=== PATIENT | male | born 1990 | race Caucasian/White ===

== ENCOUNTER 2019-06-11 14:12 | Emergency (ER) | payer MEDICARE, MEDICAID, SELFPAY ==
[2019-06-11 14:45] VITALS: BP 137/60; PULSE 99; RESP 18; TEMP 36.6; O2SAT 96; BMI 30.5
--- NOTE | 2019-06-11 15:09 | DI.RAD.S_ITS ---
PROCEDURE: XR SOFT TISSUE NECK INDICATIONS: ? needle breakoff in neck TECHNIQUE: 2 views of the neck were acquired. COMPARISON: None. FINDINGS: Airway: The airway appears patent. Soft tissues: Prevertebral soft tissues are normal in thickness. The epiglottis and aryepiglottic folds appear normal. No soft tissue gas. 9 mm linear radiodensity is noted overlying the medial soft tissues of the right neck at approximately level of C5-6. Bones: No suspicious bony lesions. Visualized cervical spine is normally aligned. IMPRESSION: 9 mm radiodense area overlying the right neck as above. This appears consistent with foreign body and recommend clinical correlation. Dictated by: Thelma Canales M.D. on 06/11/2019 at 15:54 Approved by: Thelma Canales M.D. on 06/11/2019 at 15:55
--- NOTE | 2019-06-11 16:39 | DI.US.S_ITS ---
PROCEDURE: US SOFT TISSUE HEAD AND NECK INDICATIONS: NEEDLE RIGHT SIDE OF NECK TECHNIQUE: Real-time scanning was performed of the neck region of interest, with image documentation. COMPARISON: Located Within [facility], CR, XR SOFT TISSUE NECK, 06/11/2019, 15:30. FINDINGS: Ultrasound evaluation of the right neck in the area of incision demonstrates no discrete foreign body sonographically. IMPRESSION: 1. Previously visualized radiopaque foreign body in the right neck soft tissues not discretely visualize sonographically. Dictated by: Eric Llanos M.D. on 06/11/2019 at 17:24 Approved by: Eric Llanos M.D. on 06/11/2019 at 17:26
--- NOTE | 2019-06-11 18:38 | ED.SKABFB ---
HPI - Skin/Abscess/Foreign Bdy <NAHEED Wesley - Last Filed: 06/11/19 18:51> General Chief complaint: Skin/Abscess/Foreign Body Stated complaint: broke needle in jugular 2 weeks ago Time Seen by Provider: 06/11/19 16:26 Source: patient Mode of arrival: Ambulatory Limitations: no limitations History of Present Illness HPI narrative: The patient is a 28-year-old male with history of IV drug use who presents with a chief complaint of a broken needle near his right jugular 2 weeks ago. Denies any fevers nausea vomiting or diarrhea. He states he only came in today because of the urging of his counselor. Denies any fevers nausea vomiting or diarrhea. 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 He states he transiently uses Suboxone, which he sources from the street. Related Data Home Medications Medication Instructions Recorded Confirmed aripiprazole [Abilifmarguerite Maintena] 400 mg IM QMONTH 06/11/19 06/11/19 bupropion HCl 150 mg PO DAILY 06/11/19 buspirone 30 mg PO BID 06/11/19 prazosin 6 mg PO DAILY 06/11/19 Allergies Allergy/AdvReac Type Severity Reaction Status Date / Time No Known Drug Allergies Allergy Verified 06/11/19 14:45 Review of Systems <NAHEED Wesley - Last Filed: 06/11/19 18:51> Review of Systems Narrative: GENERAL: See HPI HEENT: Denies sinus pain, ear pain, sore throat, difficulty swallowing, dizziness. RESPIRATORY: Denies dyspnea, cough, wheezing, hemoptysis, sputum. CARDIOVASCULAR: Denies chest pain, palpitations, orthopnea, edema, GASTROINTESTINAL: Denies nausea, vomiting, abdominal pain, diarrhea, constipation, melena. : Denies dysuria, frequency, incontinence, hematuria, urinary retention. MUSCULOSKELETAL: denies weakness, joint pain, or bony pain SKIN: See HPI NEUROLOGIC: Denies weakness, headache, numbness, change in speech, confusion, seizures, incoordination. PSYCHIATRIC: No concerning psychosocial issues. 12 point review of systems is negative except for those stated above Patient History <NAHEED Wesley - Last Filed: 06/11/19 18:51> Medical History (Updated 06/11/19 @ 18:49 by NAHEED Wesley) Endocarditis (Acute) Social History Smoking Status: Current every day smoker Smoking Status: Current every day smoker Substance Use Type: heroin and methamphetamine Exam <NAHEED Wesley - Last Filed: 06/11/19 18:51> Narrative Exam Narrative: GENERAL: This is a well-nourished, well-developed patient, in no acute distress HEAD: Atraumatic. Normocephalic. No temporal or scalp tenderness. EYES: Pupils equal round and reactive. Extraocular motions intact. No scleral icterus. No injection or drainage. ENT: Nose without bleeding, purulent drainage or septal hematoma. Throat without erythema, tonsillar hypertrophy or exudate. Uvula midline. Airway patent. NECK: Trachea midline. No JVD or lymphadenopathy. Supple, nontender, no meningeal signs. CARDIOVASCULAR: Regular rate and rhythm RESPIRATORY: Clear to auscultation. Breath sounds equal bilaterally. No wheezes, rales, or rhonchi. No cough. No increased respiratory effort. No accessory muscle use. GASTROINTESTINAL: Abdomen soft, non-tender, nondistended. No hepato-splenomegaly, or palpable masses. No guarding. EXTREMITIES: No clubbing, cyanosis, or edema. No joint tenderness, effusion, or edema noted. BACK: Nontender without deformity or crepitance. No flank tenderness. NEURO: AOx3. SKIN: Multiple IV injection sites. Noted 1 on right side of neck, with no purulent discharge, no spreading erythema, no drainage. No palpable abscess. Initial Vital Signs Initial Vital Signs: Vital Signs Temperature 97.9 F 06/11/19 14:45 Pulse Rate 99 H 06/11/19 14:45 Respiratory Rate 18 06/11/19 14:45 Blood Pressure 137/60 06/11/19 14:45 Pulse Oximetry 96 06/11/19 14:45 <Shima Zaragoza DO - Last Filed: 06/11/19 20:01> Initial Vital Signs Initial Vital Signs: Vital Signs Temperature 97.9 F 06/11/19 14:45 Pulse Rate 99 H 06/11/19 14:45 Respiratory Rate 18 06/11/19 14:45 Blood Pressure 137/60 06/11/19 14:45 Pulse Oximetry 96 06/11/19 14:45 Course <JASON WesleyBENEDICT - Last Filed: 06/11/19 18:51> Orders Ordered: ED Orders 06/11/19 15:09 XR soft tissue neck Stat 06/11/19 16:39 US soft tissue head and neck Stat Consultations Consultation #1: I spoke with Dr. Boss from surgery, who recommends watchful waiting if the patient is afebrile, feels okay and has no signs of infection. This correlates with the patient at this point in time because he only came in at the urging of his counselor, not because he is feeling poorly. Time: 18:10 Vital Signs Vital signs: Vital Signs - 8 hr 06/11/19 14:45 06/11/19 18:52 Temperature 97.9 F Pulse Rate 99 H 97 H Respiratory Rate 18 18 Blood Pressure 137/60 132/73 Pulse Oximetry 96 100 <Shima Zaragoza DO - Last Filed: 06/11/19 20:01> Orders Ordered: ED Orders 06/11/19 15:09 XR soft tissue neck Stat 06/11/19 16:39 US soft tissue head and neck Stat Vital Signs Vital signs: Vital Signs - 8 hr 06/11/19 14:45 06/11/19 18:52 Temperature 97.9 F Pulse Rate 99 H 97 H Respiratory Rate 18 18 Blood Pressure 137/60 132/73 Pulse Oximetry 96 100 MDM - Skin/Abscess/Foreign Bdy <NAHEED Wesley - Last Filed: 06/11/19 18:51> [facility] Narrative Medical decision making narrative: The patient is a 28-year-old male who presents with a chief complaint of a possible heroin needle in his neck. Placement is confirmed by x-ray, unable to view on ultrasound. Spoke with Dr. Boss from surgery, who recommends watchful waiting of the patient's not hemodynamically ill. Discussed this with patient and he is okay with this plan at this point time. He has an appointment with PCP coming up next week. He is okay with plan of care, has no questions or concerns upon discharge states understanding return precautions as well as follow-up care. <Shima Zaragoza DO - Last Filed: 06/11/19 20:01> [facility] Narrative Medical decision making narrative: Case discussed along with review of imaging and surgery consulted. Needle does not appear to be in the vasculature. Plan for watchful waiting and patient to return if needed. Discharge Plan Departure Patient Disposition: Home Clinical Impression: Foreign body in soft tissue Discharge Date/Time: 06/11/19 18:53 Instructions: DI for Drug Abuse and Drug Addiction Activity Restrictions/Additional Instructions: Please follow-up with primary care provider as scheduled. Please monitor for signs of infection such as fever, purulence drainage etcetera. Please be evaluated if these occur. Please come back to the emergency department for any acute concerns. I am proud of you for working to stop using IV drugs Prescriptions: No Action buspirone 30 mg tablet 30 mg PO BID RF: 0 prazosin 2 mg capsule 6 mg PO DAILY RF: 0 bupropion HCl 150 mg tablet extended release 24 hr 150 mg PO DAILY RF: 0 Abilify Maintena 400 mg suspension,extended rel syring 400 mg IM QMONTH RF: 0
[2019-06-11 18:52] VITALS: BP 132/73; PULSE 97; RESP 18; O2SAT 100
== END 2019-06-11 18:53 | disposition home or self-care (01) ==
PROVIDERS: Emergency Provider Nurse Practitioner Family
DX: M79.5 Residual foreign body in soft tissue (principal)
CPT/HCPCS: 70360; 76536; 99281; 99284

== ENCOUNTER → 2021-12-25 08:27 | Outpatient (CLI) | payer MEDICARE, MEDICAID, SELFPAY ==
--- NOTE | 2021-12-25 | DI.US.S_ITS ---
PROCEDURE: US ABDOMEN COMPLETE INDICATIONS: Hepatic fibrosis, advanced fibrosis TECHNIQUE: Real-time scanning was performed of the abdominal and retroperitoneal organs, with image documentation. Doppler interrogation of the hepatic vessels was performed. COMPARISON: None. FINDINGS: Liver: Liver is normal in size and homogeneous in echotexture. Mildly lobulated liver contour. Doppler interrogation of the hepatic vasculature to include the splenic vein, portal veins hepatic veins and hepatic artery was performed. Normal waveforms identified. Gallbladder: Gallbladder is normal in sonographic appearance without gallstones, gallbladder wall thickening, pericholecystic fluid, or abnormal sonographic Chen's. Biliary ducts: Intrahepatic bile ducts are non-dilated. Extrahepatic bile duct caliber measures 6 mm. Normal is 6-7 mm or less in diameter, or 10 mm or less post-cholecystectomy. Possible choledochal cyst noted. Pancreas: Visualized portions of the pancreas are sonographically normal. Spleen: Splenomegaly with spleen measuring 17 cm in length. Kidneys: Kidneys are normal in size and echotexture. Right kidney measures 11 cm long; left kidney measures 10 cm long. No hydronephrosis or nephrolithiasis. No solid masses. Aorta: Visualized aorta is normal in caliber at less than 3 cm. Iliacs: Proximal common iliac arteries are normal in caliber at less than 2.5 cm. IVC: Intrahepatic inferior vena cava is patent. Miscellaneous: No free abdominal fluid. IMPRESSION: 1. Unremarkable sonographic evaluation of the abdomen with normal Doppler evaluation of the hepatic/portal vasculature. 2. Possible choledochal cyst. Consider further evaluation with MRCP. Dictated by: Wenceslao Guo M.D. on 12/25/2021 at 10:08 Approved by: Wenceslao Guo M.D. on 12/25/2021 at 10:15
== END ==
PROVIDERS: Referring Provider Physician Assistant; Visit Provider Physician Assistant
DX: K74.02 Hepatic fibrosis, advanced fibrosis (principal)
CPT/HCPCS: 76700; 93975

== ENCOUNTER → 2022-01-22 11:26 | Outpatient (CLI) | payer MEDICARE, MEDICAID, SELFPAY ==
--- NOTE | 2022-01-22 | DI.CT.S_ITS ---
PROCEDURE: CT ABDOMEN LIVER PROTOCOL INDICATIONS: Hepatic fibrosis, advanced fibrosis TECHNIQUE: 4 phase scanning was performed. Non-contrast 5 mm axial sections acquired from the diaphragm to the iliac crests. Following the administration of intravenous contrast, 5 mm thick arterial-phase, portal venous-phase, and 5-minute delayed phase images were acquired through the liver. 5 mm thick coronal and sagittal reformats were performed. For radiation dose reduction, the following was used: automated exposure control, adjustment of mA and/or kV according to patient size. COMPARISON: [facility], , US ABDOMEN COMPLETE, 12/25/2021, 8:35. FINDINGS: Image quality: Excellent. Lung bases: No pleural effusion. Bibasilar atelectasis. Heart size is normal. Liver: Cirrhotic liver morphology. No arterial hyperenhancing observation. No washout. Tiny calcification adjacent to the inferior right margin of the liver. Other solid organs: Gallbladder is within normal limits. No gallstones identified. Biliary system is non dilated. No choledochal cyst demonstrated. Pancreas is normal in morphology. Spleen is mildly enlarged measuring 16 cm. No adrenal nodules. Both kidneys demonstrate normal size and enhancement, without hydronephrosis or nephrolithiasis. Nodes and vessels: No retroperitoneal or mesenteric adenopathy by size criteria. Aorta and inferior vena cava are normal in size. Conventional and patent hepatic arterial anatomy. No filling defect in the portal vein. Recannulization of the periumbilical vein. Para soft RENUKA where sees. Upper abdominal varices. Splenic vein is enlarged. Bowel and peritoneum: Unenhanced bowel loops are normal in caliber. No free fluid or air. Bones: No suspicious bony lesions. No vertebral body compression fractures. Miscellaneous: No ventral hernias. IMPRESSION: 1. Cirrhotic liver morphology. Splenomegaly. Upper abdominal varices. No ascites. 2. No LR 4 or LR 5 observations to suggest HCC. Dictated by: Elías Kathleen M.D. on 01/22/2022 at 13:47 Approved by: Elías Kathleen M.D. on 01/22/2022 at 13:55
== END ==
PROVIDERS: PCP Physician Assistant; Referring Provider Physician Assistant; Visit Provider Physician Assistant
DX: K74.02 Hepatic fibrosis, advanced fibrosis (principal); R77.2 Abnormality of alphafetoprotein; R16.1 Splenomegaly, not elsewhere classified; I86.8 Varicose veins of other specified sites
CPT/HCPCS: 74170; Q9967

== ENCOUNTER 2023-01-22 13:07 | Emergency (ER) | payer MEDICARE, MEDICAID, SELFPAY ==
[2023-01-22] VITALS (17 sets, daily range): BP systolic 135–162; BP diastolic 62–80; PULSE 88–93; RESP 17–38; TEMP 36.5; O2SAT 89–99; BMI 30.8
--- NOTE | 2023-01-22 | DI.RAD.S_ITS ---
PROCEDURE: XR PELVIS 1-2V INDICATIONS: TRAUMA TECHNIQUE: 1 view(s) of the pelvis acquired. COMPARISON: None. FINDINGS: Bones: No fractures or dislocations. No suspicious bony lesions. Soft tissues: Visualized bowel gas pattern is normal. No suspicious soft tissue calcifications. IMPRESSION: No displaced fracture can be seen on this single view plain film. Dictated by: Kieran Garnett M.D. on 01/22/2023 at 12:30 Approved by: Kieran Garnett M.D. on 01/22/2023 at 12:31
--- NOTE | 2023-01-22 | DI.RAD.S_ITS ---
PROCEDURE: XR CHEST 1V INDICATIONS: TRAUMA TECHNIQUE: One view of the chest was acquired. COMPARISON: [facility], CR, XR CHEST 1VW (PORTABLE), 04/05/2015, 20:39. [facility], CR, XR PELVIS 1-2V, 01/22/2023, 13:11. FINDINGS: Surgical changes and devices: None. Lungs and pleura: On this supine examination, no large pneumothorax or large pleural effusions are seen. No focal areas of lung consolidation are seen. Low lung volumes are noted. This causes a crowded appearance to the lung markings and limits evaluation. Mediastinum: Mediastinal contours appear normal. Heart size is normal. Bones and chest wall: No suspicious bony lesions. Soft tissue gas can be seen on the right. IMPRESSION: Soft tissue gas seen on the right. No definite associated rib fractures are seen. No pneumothorax is identified on this supine study. Low lung volumes. Dictated by: Kieran Garnett M.D. on 01/22/2023 at 12:36 Approved by: Kieran Garnett M.D. on 01/22/2023 at 12:38
--- NOTE | 2023-01-22 13:13 | DI.CT.S_ITS ---
PROCEDURE: CT CHEST ABD PEL WO CON INDICATIONS: trauma TECHNIQUE: After the administration of oral contrast, 5 mm thick sections acquired from the lung apices to the symphysis pubis. 5 mm thick coronal and sagittal reformats acquired, with additional 7 mm coronal MIP reformats through the lungs. For radiation dose reduction, the following was used: automated exposure control, adjustment of mA and/or kV according to patient size. There is an attempt to give IV contrast. However, the IV malfunction. COMPARISON: [facility], CT, CT ABDOMEN LIVER PROTOCOL, 01/22/2022, 12:05. [facility], CT, CT HEAD/BRAIN WO CON, 01/22/2023, 13:22. [facility], CT, CT CERVICAL SPINE WO CON, 01/22/2023, 13:22. [facility], CR, XR PELVIS 1-2V, 01/22/2023, 13:11. [facility], CR, XR CHEST 1V, 01/22/2023, 13:11. FINDINGS: Image quality: Limited by lack of IV contrast. There is streak artifact seen through the upper abdomen. CHEST: Lungs and pleura: There is a trace right apical pneumothorax. There is presumed dependent atelectasis. Central and peripheral airways are patent are normal in caliber. Mediastinum: Heart size is normal. No pericardial effusion. No mediastinal adenopathy by CT size criteria. Thoracic aorta and central pulmonary arteries are normal in size. Esophagus is normal in caliber. No hiatal hernia. Chest wall: There is a mildly displaced right anterior 1st rib fracture, with mildly displaced fractures involving the right 2nd through 7th ribs. A moderate amount of right-sided soft tissue gas is seen. There is a comminuted, moderately displaced right lateral clavicle fracture. No scapular fracture is seen. No axillary or supraclavicular adenopathy by size criteria. Thyroid gland demonstrates no significant noncontrast abnormality. ABDOMEN: Solid organs: Liver is normal in size. The liver demonstrates a nodular contour. Gallbladder wall is not thickened. Pancreas is normal in contours. The spleen is enlarged measuring 18.2 cm craniocaudal No adrenal nodules. Both kidneys are normal in size, without hydronephrosis or nephrolithiasis. There is a small amount of hyperdense material seen within the renal collecting systems, which is likely related to a small amount of injected contrast, with excretion. Peritoneum and bowel: Small and large bowel loops are normal in caliber and wall thickness. No free fluid or air. A normal appendix is noted. Note is made of hyperdense material within the appendix is self. Nodes and vessels: No retroperitoneal or mesenteric adenopathy by size criteria. Aorta and inferior vena cava are normal in size. Miscellaneous: No ventral hernias. PELVIS: Genitourinary: Bladder wall thickness is normal. Miscellaneous: No inguinal hernias or adenopathy. Bones: No suspicious bony lesions. No vertebral body compression fractures. Focal L5-S1 degenerative change. IMPRESSION: 1st through 7th right-sided rib fractures, with associated soft tissue gas and a trace right apical pneumothorax. There is a comminuted, moderately displaced fracture of the right lateral clavicle. No scapular fracture is seen. No pelvis fracture. No displaced vertebral fracture. Additional findings: Cirrhotic liver, with splenomegaly, as previously demonstrated. Focal premature L5-S1 degenerative change Note: Case discussed by telephone with Dr. Dickson at 1:01 p.m. [place] time on January 22, 2023. Dictated by: Kieran Garnett M.D. on 01/22/2023 at 13:04 Approved by: Kieran Garnett M.D. on 01/22/2023 at 13:08
--- NOTE | 2023-01-22 13:16 | DI.CT.S_ITS ---
PROCEDURE: CT HEAD/BRAIN WO CON INDICATIONS: trauma TECHNIQUE: Noncontrast 4.5 mm thick angled axial sections acquired from the foramen magnum to the vertex, with coronal and sagittal reformats. For radiation dose reduction, the following was used: automated exposure control, adjustment of mA and/or kV according to patient size. COMPARISON: [facility], CT, CT BRAIN WO CON, 04/05/2015, 21:12. [facility], CT, CT CHEST ABD PEL WO CON, 01/22/2023, 13:34. [facility], CT, CT CERVICAL SPINE WO CON, 01/22/2023, 13:22. [facility], CR, XR PELVIS 1-2V, 01/22/2023, 13:11. [facility], CR, XR CHEST 1V, 01/22/2023, 13:11. [facility], CT, HEAD WITHOUT CONTRAST, 06/15/2015, 11:19. FINDINGS: Image quality: This examination is limited by involuntary motion artifact. Mild streak artifact can be seen through the skull base. CSF spaces: Basal cisterns are patent. No extra-axial fluid collections. Ventricles are normal in size and shape. Brain: No midline shift. No intracranial masses or hemorrhage. Park-white matter interface is normal. Stable encephalomalacia can be seen involving the left parietal lobe. Skull and face: There is a dick hole seen on the left posteriorly, as before. Calvarium and visualized facial bones are intact, without suspicious lesions. Sinuses: Visualized sinuses and mastoids are clear. IMPRESSION: No acute intracranial hemorrhage is seen. No acute intracranial process is seen. Left parietal encephalomalacia, with an overlying calvarial dick hole. Dictated by: Kieran Garnett M.D. on 01/22/2023 at 12:53 Approved by: Kieran Garnett M.D. on 01/22/2023 at 12:55
--- NOTE | 2023-01-22 13:16 | DI.CT.S_ITS ---
PROCEDURE: CT CERVICAL SPINE WO CON INDICATIONS: trauma TECHNIQUE: Noncontrast 3 mm thick sections acquired from the skull base to the T4 level. Sagittal and coronal reformats were then constructed. For radiation dose reduction, the following was used: automated exposure control, adjustment of mA and/or kV according to patient size. COMPARISON: [facility], CT, CT CHEST ABD PEL WO CON, 01/22/2023, 13:34. [facility], CT, CT HEAD/BRAIN WO CON, 01/22/2023, 13:22. FINDINGS: Image quality: This examination is limited by involuntary motion artifact. This examination is somewhat limited by quantum mottle artifact. Bones: No fractures or dislocations are seen of the cervical spine. There is a mildly displaced fracture seen involving the anterior right 1st rib. Soft tissues: Prevertebral soft tissues are normal in thickness. No paravertebral hematomas. Right-sided thoracic gas is partially seen. There is a trace right apical pneumothorax. IMPRESSION: No cervical spine fracture is seen. Right anterior 1st rib fracture seen, with associated soft tissue gas and a trace right apical pneumothorax. Note: Case discussed by telephone with Dr. Dickson at 1:01 p.m. [place] time on January 22, 2023. Dictated by: Kieran Garnett M.D. on 01/22/2023 at 12:56 Approved by: Kieran Garnett M.D. on 01/22/2023 at 13:03
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
[2023-01-22] MEDS: HYDROMORPHONE 0.5 MG INJ IV ×3 (13:21→14:58)
[2023-01-22 13:36] LABS: Add Manual Diff / Slide Review NO; Basophils Absolute Auto 0 /uL (0-100); Eosinophils Absolute Auto 0 /uL (0-450); Eosinophils Percent Auto 0.1 % (2-4); Hematocrit 37.7 % (41-53); Hemoglobin 12.9 g/dL (13.5-17.5); Lymphocytes Absolute Auto 700 /uL (1100-4500); Lymphocytes Percent Auto 23.3 % (25-40); Mean Corpuscular HGB Conc 34.1 % (30-36); Mean Corpuscular Hemoglobin 32.4 PG (26-34); Mean Corpuscular Volume 94.9 fL (80-100); Monocytes Absolute Auto 300 /uL (0-900); Monocytes Percent Auto 11.9 % (3-14); Neutrophils Absolute Auto 1800 /uL (1500-7000); Neutrophils Percent Auto 63.7 % (50-75); Platelet Count 40 X10^3/uL (150-400); Red Blood Cell Count 3.97 X10^6/uL (4.5-5.9); Red Cell Distribution Width 14.2 % (11.6-14.8); White Blood Cell Count 2.8 X10^3/uL (4.5-11.0)
[2023-01-22 13:46] LABS: Alanine Aminotransferase 27 IU/L (<50); Albumin 3.7 g/dL (3.5-5.0); Alkaline Phosphatase 106 U/L (38-126); Aspartate Aminotransferase 46 IU/L (17-59); BUN Creatinine Ratio 17.5 (6-22); Bilirubin Total 1.3 mg/dL (0.2-1.3); Blood Urea Nitrogen 10 mg/dL (9-20); Calcium 9.1 mg/dL (8.4-10.2); Carbon Dioxide 27 mmol/L (22-32); Chloride 106 mmol/L (98-107); Estimated Glomerular Filt Rate > 60 mL/min (>60); Ethanol (ETOH) < 10 mg/dL; Globulin 3.7 g/dL (1.7-4.1); Glucose 141 mg/dL (70-100); HEMOLYSIS < 15 (0-50); Lipase 66 U/L (23-300); Potassium 4.1 mmol/L (3.4-5.1); Sodium 138 mmol/L (137-145); Total Protein 7.4 g/dL (6.3-8.2)
[2023-01-22 13:58] LABS: Troponin I < 0.012 ng/mL (0.01-0.034)
[2023-01-22] MEDS: HYDROMORPHONE 1 MG INJ IV (14:34)
[2023-01-22 14:48] LABS: COVID19 -Nasal RAPID Negative (Negative)
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
--- NOTE | 2023-01-22 15:12 | PC.NURSE ---
Patient's belongings bagged up including but not limited to, helmet, shoes, cut jacket, spare change, and yellow colored band removed to right hand upon arrival and placed in cup with patient label. Band in cup given to flight crew directly and placed in belongings bag.
== END 2023-01-22 15:05 | disposition short-term general hospital (02) ==
PROVIDERS: Emergency Provider Emergency Medicine; PCP Physician Assistant
DX: S42.031A Displaced fracture of lateral end of right clavicle, initial encounter for closed fracture (principal); S22.41XA Multiple fractures of ribs, right side, initial encounter for closed fracture; J93.9 Pneumothorax, unspecified; S30.1XXA Contusion of abdominal wall, initial encounter; V29.99XA Rider (driver) (passenger) of other motorcycle injured in unspecified traffic accident, initial encounter; Z20.822 Contact with and (suspected) exposure to COVID-19
CPT/HCPCS: 36415; 70450; 71045; 71250; 72125; 72170; 74176; 80053; 80320; 83690; 84484; 85025; 86850; 86900; 86901; 87635; 96374; 96376; 99285; 99291; 99292; C9803; G0390; J1170

== ENCOUNTER 2023-04-26 14:21 | Emergency (ER) | payer MEDICARE, MEDICAID, SELFPAY ==
[2023-04-26 14:24] VITALS: BP 147/78; PULSE 107; RESP 18; TEMP 36.8; O2SAT 98; BMI 31.9
[2023-04-26 15:21] VITALS: BP 119/56; PULSE 101; RESP 18; TEMP 36.8; O2SAT 95
[2023-04-26 16:13] VITALS: BP 116/57; PULSE 94; RESP 16; TEMP 36.9; O2SAT 95
[2023-04-26 18:14] LABS: Add Manual Diff / Slide Review NO; Basophils Absolute Auto 0 /uL (0-100); Basophils Percent Auto 1.4 % (0-2); Eosinophils Absolute Auto 0 /uL (0-450); Eosinophils Percent Auto 0.1 % (2-4); Hematocrit 26.9 % (41-53); Lymphocytes Absolute Auto 500 /uL (1100-4500); Lymphocytes Percent Auto 19.3 % (25-40); Mean Corpuscular HGB Conc 33.5 % (30-36); Mean Corpuscular Hemoglobin 29.4 PG (26-34); Mean Corpuscular Volume 87.8 fL (80-100); Monocytes Absolute Auto 400 /uL (0-900); Monocytes Percent Auto 16.1 % (3-14); Neutrophils Absolute Auto 1600 /uL (1500-7000); Neutrophils Percent Auto 63.1 % (50-75); Platelet Count 50 X10^3/uL (150-400); Red Blood Cell Count 3.06 X10^6/uL (4.5-5.9); Red Cell Distribution Width 15.4 % (11.6-14.8); White Blood Cell Count 2.5 X10^3/uL (4.5-11.0)
[2023-04-26 18:31] LABS: Lactate (Lactic Acid) 0.9 mmol/L (0.7-2.1)
[2023-04-26] MEDS: cefTRIAXone 1,000 MG in SODIUM CHLORIDE 0.9% 100 ML 200 MG IV (18:31)
[2023-04-26 18:33] LABS: Alanine Aminotransferase 25 IU/L (<50); Albumin 3.2 g/dL (3.5-5.0); Albumin Globulin Ratio 0.9 (1.0-2.8); Alkaline Phosphatase 147 U/L (38-126); Aspartate Aminotransferase 39 IU/L (17-59); BUN Creatinine Ratio 23.2 (6-22); Bilirubin Total 0.9 mg/dL (0.2-1.3); Blood Urea Nitrogen 13 mg/dL (9-20); Calcium 8.3 mg/dL (8.4-10.2); Carbon Dioxide 27 mmol/L (22-32); Chloride 103 mmol/L (98-107); Estimated Glomerular Filt Rate > 60 mL/min (>60); Globulin 3.7 g/dL (1.7-4.1); Glucose 102 mg/dL (70-100); HEMOLYSIS < 15 (0-50); Potassium 4.2 mmol/L (3.4-5.1); Sodium 134 mmol/L (137-145); Total Protein 6.9 g/dL (6.3-8.2)
--- NOTE | 2023-04-26 18:47 | DI.CT.S_ITS ---
PROCEDURE: CT LE LT W CON INDICATIONS: LLE cellulitis TECHNIQUE: After the administration of intravenous contrast, 3 mm axial sections acquired of the left , with coronal and sagittal reformats. COMPARISON: None. FINDINGS: Image quality: Excellent. Bones: Unremarkable. Soft tissues: Subcutaneous stranding and skin thickening is seen throughout the left lower extremity. No deep intermuscular edema. No subcutaneous emphysema. IMPRESSION: 1. Diffuse subcutaneous edema and skin thickening. No deep intramuscular edema. Findings are consistent with history of cellulitis. 2. The osseous structures are unremarkable. 3. Few prominent left inguinal and left pelvic lymph nodes, may be reactive. 4. Exam is described as with contrast, there does not appear to be contrast within vasculature. Recommend correlation with extravasation. Dictated by: Stuart Barraza M.D. on 04/26/2023 at 19:36 Approved by: Stuart Barraza M.D. on 04/26/2023 at 19:39
--- NOTE | 2023-04-26 18:50 | ED_ITS ---
HPI - Skin/Abscess/Foreign Bdy <Keith Crain PA-C - Last Filed: 04/26/23 19:33> General Chief complaint: Skin/Abscess/Foreign Body Stated complaint: cellulitis left leg Time Seen by Provider: 04/26/23 16:02 Source: patient Mode of arrival: Ambulatory Limitations: no limitations History of Present Illness HPI narrative: 32-year-old male, past IV drug user, current substance abuse including fentanyl and meth, endocarditis presents to the ED with 1 week of worsening left leg erythema, swelling, pain. Patient states that he took 3-4 days of Keflex with no improvement. Patient states that his infection is worsening. Patient denies numbness, tingling, weakness. Patient is able to bear weight and walk. Patient denies fever, chills, nausea, vomiting. Patient states that he has not used needles for IV drug use for 2 years. Confirms that there is no risk of a broken needle tip in the leg that could be causing his symptoms. Patient thinks that it is a wound that he has on his upper leg that might be the source of his infection. Last use of methamphetamine and fentanyl today. Related Data Home Medications Medication Instructions Recorded Confirmed aripiprazole 400 mg suspension, 400 mg IM QMONTH 06/11/19 06/11/19 extended rel.intramuscular syringe (Jeniffer Cisneros) bupropion HCl 150 mg 24 hr tablet, 150 mg PO DAILY 06/11/19 extended release buspirone 30 mg tablet 30 mg PO BID 06/11/19 prazosin 2 mg capsule 6 mg PO DAILY 06/11/19 Allergies Allergy/AdvReac Type Severity Reaction Status Date / Time No Known Drug Allergies Allergy Verified 01/22/22 11:45 Review of Systems <Keith Crain PA-C - Last Filed: 04/26/23 19:33> Constitutional Constitutional: Denies chills, Denies fatigue, Denies fever(s), Denies frequent falls, Denies lethargy and Denies weakness Eyes Eyes: Denies change in vision, Denies eye discharge, Denies irritation and Denies loss of vision ENT Ears, Nose, Mouth, and Throat: Denies change in voice, Denies dizziness, Denies neck pain, Denies sore throat and Denies throat swelling Cardiovascular Cardiovascular: Denies chest pain, Denies irregular heart rhythm, Denies lightheadedness, Denies palpitations, Denies dyspnea, Denies dyspnea on exertion and Denies orthopnea Respiratory Respiratory: Denies cough, Denies dyspnea, Denies dyspnea on exertion and Denies wheezing Gastrointestinal Gastrointestinal: Denies abdominal pain, Denies change in bowel habits, Denies diarrhea, Denies nausea and Denies vomiting Musculoskeletal Musculoskeletal: Denies neck pain and Denies numbness Integumentary/Breasts Skin/Breast: Denies pruritus, Denies erythema, Denies rash and Denies wounds Comments: Left leg erythema, swelling extending up into the groin Neurologic Neurologic: Denies behavioral changes, Denies confusion, Denies dizziness, Denies frequent falls, Denies loss of vision, Denies numbness and Denies weakness Psychiatric Psychiatric: Denies anxiety, Denies behavioral changes, Denies confusion, Denies depression, Denies homicidal ideation and Denies suicidal ideation Endocrine Endocrine: Denies fatigue, Denies flushing and Denies palpitations Hematologic/Lymphatic Hematologic/Lymphatic: Denies easy bruising Allergic/Immunologic Allergic/Immunologic: Denies urticaria, Denies throat swelling and Denies wheezing Patient History <Keith Crain PA-C - Last Filed: 04/26/23 19:33> Medical History Endocarditis Social History Smoking Status: Current every day smoker Smoking Status: Current every day smoker tobacco type: cigarettes and vaping Substance Use Type: heroin, opiates and methamphetamine Exam <Keith Crain PA-C - Last Filed: 04/26/23 19:33> Narrative Exam Narrative: Const General:?cooperative, healthy appearing and comfortable [facility] Head:?normal to inspection Ears:?hearing grossly normal bilaterally Nose:?external nose normal Face and sinus:?normal facial exam and sinuses nontender Mouth:?oral mucosae normal Throat:?posterior oropharynx normal Eyes General:?appearance normal, both eyes and all related structures Neck Neck:?normal visual inspection and no lymphadenopathy noted Resp Effort & Inspection:?normal respiratory effort Auscultation:?clear to auscultation bilaterally Cardio Rate:?regular rate Rhythm:?regular rhythm Integumentary There is marked swelling, erythema extending from the tips of the toes of the left leg up into the groin and genital area. No purulence. Pulses intact. Compartments are soft. Strength and sensation intact. Patient is able to bear weight and walk. Neuro General:?patient alert, patient awake and patient oriented x3 Initial Vital Signs Initial Vital Signs: Vital Signs Temperature 98.3 F 04/26/23 14:24 Pulse Rate 107 H 04/26/23 14:24 Respiratory Rate 18 04/26/23 14:24 Blood Pressure 147/78 H 04/26/23 14:24 Pulse Oximetry 98 04/26/23 14:24 Oxygen Delivery Method Room Air 04/26/23 14:24 <Minh Tejeda DO - Last Filed: 04/26/23 19:59> Initial Vital Signs Initial Vital Signs: Vital Signs Temperature 98.3 F 04/26/23 14:24 Pulse Rate 107 H 04/26/23 14:24 Respiratory Rate 18 04/26/23 14:24 Blood Pressure 147/78 H 04/26/23 14:24 Pulse Oximetry 98 04/26/23 14:24 Oxygen Delivery Method Room Air 04/26/23 14:24 Course <Keith Crain PA-C - Last Filed: 04/26/23 19:33> Orders Ordered: ED Orders 04/26/23 17:32 CRP [C-Reactive Protein Quant] Stat ESR [Erythrocyte Sedimentation Rate] Stat 04/26/23 17:58 Blood Culture Stat CBC Auto Diff [Complete Blood Count AUTO DIFF] Stat CMP [Comprehensive Metabolic Panel] Stat Lactate (Lactic Acid) Stat 04/26/23 18:47 CT LE LT w con Stat Discontinued Medications Ceftriaxone Sodium 1,000 mg/ (Sodium Chloride) 100 mls @ 200 mls/hr IV NOW ONE Stop: 04/26/23 17:33 Last Infusion: 04/26/23 19:15 Dose: Infused Documented By: Admin: 04/26/23 18:31 Dose: 200 mls/hr Documented By: JABARI Vancomycin HCl/Dextrose (Vancomycin) 1,500 mg in 300 mls @ 200 mls/hr IV NOW ONE Stop: 04/26/23 20:23 Vital Signs Vital signs: Vital Signs - 8 hr 04/26/23 14:24 04/26/23 15:21 04/26/23 16:13 Temperature 98.3 F 98.3 F 98.5 F Pulse Rate 107 H 101 H 94 H Respiratory Rate 18 18 16 Blood Pressure 147/78 H 119/56 L 116/57 L Pulse Oximetry 98 95 95 Oxygen Delivery Method Room Air Room Air Room Air <Minh Tejeda DO - Last Filed: 04/26/23 19:59> Orders Ordered: ED Orders 04/26/23 17:32 CRP [C-Reactive Protein Quant] Stat ESR [Erythrocyte Sedimentation Rate] Stat 04/26/23 17:58 Blood Culture Stat CBC Auto Diff [Complete Blood Count AUTO DIFF] Stat CMP [Comprehensive Metabolic Panel] Stat Lactate (Lactic Acid) Stat 04/26/23 18:47 CT LE LT w con Stat Discontinued Medications Ceftriaxone Sodium 1,000 mg/ (Sodium Chloride) 100 mls @ 200 mls/hr IV NOW ONE Stop: 04/26/23 17:33 Last Infusion: 04/26/23 19:15 Dose: Infused Documented By: Admin: 04/26/23 18:31 Dose: 200 mls/hr Documented By: JABARI Vancomycin HCl/Dextrose (Vancomycin) 1,500 mg in 300 mls @ 200 mls/hr IV NOW ONE Stop: 04/26/23 20:23 Vital Signs Vital signs: Vital Signs - 8 hr 04/26/23 14:24 04/26/23 15:21 04/26/23 16:13 Temperature 98.3 F 98.3 F 98.5 F Pulse Rate 107 H 101 H 94 H Respiratory Rate 18 18 16 Blood Pressure 147/78 H 119/56 L 116/57 L Pulse Oximetry 98 95 95 Oxygen Delivery Method Room Air Room Air Room Air MDM - Skin/Abscess/Foreign Bdy <Keith Crain PA-C - Last Filed: 04/26/23 19:33> Lab Data 04/26/23 17:58 04/26/23 17:58 Labs: Lab Results 04/26/23 04/26/23 Range/Units 17:32 17:58 WBC 2.5 L (4.5-11.0) X10^3/uL RBC 3.06 L (4.5-5.9) X10^6/uL Hgb 9.0 L (13.5-17.5) g/dL Hct 26.9 L (41-53) % MCV 87.8 (80-100) fL MCH 29.4 (26-34) PG MCHC 33.5 (30-36) % RDW 15.4 H (11.6-14.8) % Plt Count 50 L (150-400) X10^3/uL Neut % (Auto) 63.1 (50-75) % Lymph % (Auto) 19.3 L (25-40) % [place] % (Auto) 16.1 H (3-14) % Eos % (Auto) 0.1 L (2-4) % Baso % (Auto) 1.4 (0-2) % Neut # (Auto) 1600 (8472-8007) /uL Lymph # (Auto) 500 L (1722-5485) /uL [place] # (Auto) 400 (0-900) /uL Eos # (Auto) 0 (0-450) /uL Baso # (Auto) 0 (0-100) /uL ESR 67 H (0-15) MM/HR Sodium 134 L (137-145) mmol/L Potassium 4.2 (3.4-5.1) mmol/L Chloride 103 (98-107) mmol/L Carbon Dioxide 27 (22-32) mmol/L BUN 13 (9-20) mg/dL Creatinine 0.56 L (0.66-1.25) mg/dL Estimated GFR > 60 (>60) mL/min BUN/Creatinine Ratio 23.2 H (6-22) Glucose 102 H (70-100) mg/dL Lactate 0.9 (0.7-2.1) mmol/L Calcium 8.3 L (8.4-10.2) mg/dL Total Bilirubin 0.9 (0.2-1.3) mg/dL AST 39 (17-59) IU/L ALT 25 (<50) IU/L Alkaline Phosphatase 147 H (38-126) U/L C-Reactive Protein 6.1 H (<1.0) mg/dL Total Protein 6.9 (6.3-8.2) g/dL Albumin 3.2 L (3.5-5.0) g/dL Globulin 3.7 (1.7-4.1) g/dL Albumin/Globulin Ratio 0.9 L (1.0-2.8) MDM Narrative Medical decision making narrative: 32-year-old male, past IV drug user, current substance abuse including fentanyl and meth, endocarditis presents to the ED with 1 week of worsening left leg erythema, swelling, pain. Concern for cellulitis versus sepsis versus other. Labs were obtained. White count 2.5, which is patient's baseline. Hemoglobin low at 9.0. Labs otherwise within normal limits. Patient was started on IV ceftriaxone, vancomycin. ESR and CRP ordered. CT left lower extremity ordered for further characterization. Consulted hospitalist Dr. Jacobs for admission for IV antibiotics. Dr. Jacobs graciously admits patient. ESR elevated to 67. CRP elevated to 6.1. CT results still pending. Patient at this time expresses his intention to leave Against Medical Advice so he can go home and take care of his dog. Patient states that he has no one else that can help him out. Discussed in detail with the patient the consequences of leaving Against Medical Advice without IV antibiotics, including sepsis and . Patient verbalized understanding. Patient agrees to come back to the ED once he has his dog handed off to his father. Medical records reviewed: Yes <Minh Tejeda, - Last Filed: 04/26/23 19:59> Lab Data Labs: Lab Results 04/26/23 04/26/23 Range/Units 17:32 17:58 WBC 2.5 L (4.5-11.0) X10^3/uL RBC 3.06 L (4.5-5.9) X10^6/uL Hgb 9.0 L (13.5-17.5) g/dL Hct 26.9 L (41-53) % MCV 87.8 (80-100) fL MCH 29.4 (26-34) PG MCHC 33.5 (30-36) % RDW 15.4 H (11.6-14.8) % Plt Count 50 L (150-400) X10^3/uL Neut % (Auto) 63.1 (50-75) % Lymph % (Auto) 19.3 L (25-40) % [place] % (Auto) 16.1 H (3-14) % Eos % (Auto) 0.1 L (2-4) % Baso % (Auto) 1.4 (0-2) % Neut # (Auto) 1600 (3802-3134) /uL Lymph # (Auto) 500 L (1533-5449) /uL [place] # (Auto) 400 (0-900) /uL Eos # (Auto) 0 (0-450) /uL Baso # (Auto) 0 (0-100) /uL ESR 67 H (0-15) MM/HR Sodium 134 L (137-145) mmol/L Potassium 4.2 (3.4-5.1) mmol/L Chloride 103 (98-107) mmol/L Carbon Dioxide 27 (22-32) mmol/L BUN 13 (9-20) mg/dL Creatinine 0.56 L (0.66-1.25) mg/dL Estimated GFR > 60 (>60) mL/min BUN/Creatinine Ratio 23.2 H (6-22) Glucose 102 H (70-100) mg/dL Lactate 0.9 (0.7-2.1) mmol/L Calcium 8.3 L (8.4-10.2) mg/dL Total Bilirubin 0.9 (0.2-1.3) mg/dL AST 39 (17-59) IU/L ALT 25 (<50) IU/L Alkaline Phosphatase 147 H (38-126) U/L C-Reactive Protein 6.1 H (<1.0) mg/dL Total Protein 6.9 (6.3-8.2) g/dL Albumin 3.2 L (3.5-5.0) g/dL Globulin 3.7 (1.7-4.1) g/dL Albumin/Globulin Ratio 0.9 L (1.0-2.8) Discharge Plan Departure Patient Disposition: Left Against Medical Advice Clinical Impression: Cellulitis Qualifiers: Site of cellulitis: extremity Site of cellulitis of extremity: lower extremity Laterality: left Qualified Code(s): L03.116 - Cellulitis of left lower limb ED Sign-out <Minh Tejeda, DO - Last Filed: 04/26/23 19:59> [facility]estation: Dr Tejeda Co-Sign Statement: I was available for consultation during this patient's emergency department visit. This chart is signed by myself for administrative purposes only. I did not have direct contact with this patient during this visit. They were seen independently by the APC.
[2023-04-26 19:09] LABS: C-Reactive Protein Quant 6.1 mg/dL (<1.0)
[2023-04-26 19:28] LABS: Erythrocyte Sedimentation Rate 67 MM/HR (0-15)
== END 2023-04-26 19:36 | disposition left against medical advice (07) ==
LOC: ED 18:49 → AC 19:15
PROVIDERS: Emergency Provider Student in an Organized Health Care Education/Training Program; PCP Family Medicine; Referring Provider Student in an Organized Health Care Education/Training Program
DX: L03.116 Cellulitis of left lower limb (principal)
CPT/HCPCS: 36415; 73701; 80053; 83605; 85025; 85651; 86140; 87040; 96365; 99284; J0696; Q9967

== ENCOUNTER 2023-04-27 19:26 | Inpatient (IN) | payer MEDICARE, MEDICAID, SELFPAY ==
[2023-04-27] VITALS (8 sets, daily range): BP systolic 113–137; BP diastolic 58–74; PULSE 97–119; RESP 18–20; TEMP 36.9; O2SAT 93–98; BMI 32.1
--- NOTE | 2023-04-27 20:04 | ED.SKABFB ---
HPI - Skin/Abscess/Foreign Bdy General Chief complaint: Skin/Abscess/Foreign Body Stated complaint: cellulitis lower left extremity Time Seen by Provider: 04/27/23 19:38 Source: patient Mode of arrival: Ambulatory Limitations: no limitations History of Present Illness HPI narrative: 32yoM with PMH IVDA and endocarditis, current substance use including fentanyl and meth presents by private vehicle from home for cellulitis. Patient was seen yesterday for left lower extremity cellulitis but left against medical advice due to issues that he had to resolve at home. Patient states that he is here for repeat testing and if he needs to be admitted he is amenable to admission at this time. He says there are no barriers to admission today. Patient reports 1 week of worsening left leg redness and swelling. He isn't sure if it started with a burn on his upper thigh or a blister on his low foot. He had previously been on Keflex for approximately 4 days without improvement. Related Data Home Medications Medication Instructions Recorded Confirmed aripiprazole 400 mg suspension, 400 mg IM QMONTH 06/11/19 06/11/19 extended rel.intramuscular syringe (Jeniffer Cisneros) bupropion HCl 150 mg 24 hr tablet, 150 mg PO DAILY 06/11/19 extended release buspirone 30 mg tablet 30 mg PO BID 06/11/19 prazosin 2 mg capsule 6 mg PO DAILY 06/11/19 Allergies Allergy/AdvReac Type Severity Reaction Status Date / Time No Known Drug Allergies Allergy Verified 01/22/22 11:45 Review of Systems Review of Systems Narrative: Otherwise negative Patient History Medical History Endocarditis Social History household members: family Smoking Status: Current every day smoker alcohol intake: former Smoking Status: Current every day smoker tobacco type: cigarettes and vaping Substance Use Type: heroin, opiates and methamphetamine Exam Initial Vital Signs Initial Vital Signs: Vital Signs Temperature 98.4 F 04/27/23 19:40 Pulse Rate 110 H 04/27/23 19:40 Respiratory Rate 20 04/27/23 19:40 Blood Pressure 137/68 04/27/23 19:40 Pulse Oximetry 98 04/27/23 19:40 Oxygen Delivery Method Room Air 04/27/23 19:40 Const: Awake, alert, no acute distress, appears older than stated age Cardiac: regular rate, regular rhythm RESP: unlabored, clear bilaterally, no wheezing GI: Atraumatic, soft, nontender, nondistended, no rebound, no guarding MSK: LLE > RLE, diffuse blotchy erythema Skin: diffuse erythema LLE, warm to touch, no crepitus Neuro: AO x3, CN II-XII grossly intact, moves all extremities Course Course Course Narrative: Patient presenting for repeat assessment of left lower extremity swelling and redness. There does appear to be diffuse cellulitic changes of the left lower extremity, however he is neurovascularly intact, no crepitus, no evidence of compartment syndrome. CT and laboratory work from yesterday reviewed. Elevated inflammatory markers, relatively unchanged today. Patient does have noted pancytopenia, with history of IV drug abuse question if patient has underlying immune disorder, however there are no previous results in our system to confirm this. Orders Ordered: ED Orders 04/27/23 19:57 UA Complete [Urinalysis and Microscopic] Stat Urine Drug Screen, Rapid Stat 04/27/23 20:15 CBC Auto Diff [Complete Blood Count AUTO DIFF] Stat CMP [Comprehensive Metabolic Panel] Stat CRP [C-Reactive Protein Quant] Stat Erythrocyte Sedimentation Rate Stat Lactate (Lactic Acid) Stat Procalcitonin Stat 04/27/23 20:25 Blood Culture Stat Acetaminophen (Acetaminophen 325 Mg Tablet) 650 mg PO Q6H PRN PRN Reason: Fever/Mild Pain (1-3) Hydrocodone Bitart/Acetaminophen (Hydrocodone/Acet 5/325 Tablet) 1 tab PO Q4H PRN PRN Reason: Pain, Moderate (4-6) Enoxaparin Sodium (Enoxaparin 40 Mg/0.4 Ml Syringe) 40 mg SUBCUT DAILY KIARA Vancomycin HCl/Dextrose (Vancomycin) 1,500 mg in 300 mls @ 200 mls/hr IV Q12H KIARA Naloxone HCl (Naloxone 0.4 Mg/Ml Vial) 0.2 mg IV Q2MIN PRN PRN Reason: Opiate Reversal Ondansetron HCl (Ondansetron 4 Mg/2 Ml Inj) 4 mg IV Q8HR PRN PRN Reason: Nausea And Vomiting Vancomycin HCl (Vancomycin Per Pharmacy) 1 request MISC NOW PRN PRN Reason: Skin Cleaning Discontinued Medications Fluorescein Sodium (Fluorescein 1 Mg Strip) 1 mg EYE-BOTH NOW ONE Stop: 04/27/23 21:08 Last Admin: 04/27/23 21:11 Dose: Not Given Documented By: CHARLEEN Vancomycin HCl/Dextrose (Vancomycin) 1,500 mg in 300 mls @ 200 mls/hr IV NOW ONE Stop: 04/27/23 22:37 Last Infusion: 04/27/23 23:55 Dose: Infused Documented By: Admin: 04/27/23 22:10 Dose: 200 mls/hr Documented By: CANI Ceftriaxone Sodium 2,000 mg/ (Sodium Chloride) 100 mls @ 200 mls/hr IV NOW ONE Stop: 04/27/23 21:09 Last Infusion: 04/27/23 22:00 Dose: Infused Documented By: Admin: 04/27/23 21:18 Dose: 200 mls/hr Documented By: CHARLEEN Proparacaine HCl (Proparacaine 0.5% Ophth Jasmine) 1 drops EYE-BOTH NOW ONE Stop: 04/27/23 21:08 Last Admin: 04/27/23 21:11 Dose: Not Given Documented By: CHARLEEN Vital Signs Vital signs: Vital Signs - 8 hr 04/27/23 19:40 04/27/23 19:49 04/27/23 19:50 Temperature 98.4 F Pulse Rate 110 H 119 H Respiratory Rate 20 Blood Pressure 137/68 137/74 Pulse Oximetry 98 97 Oxygen Delivery Method Room Air 04/27/23 19:50 04/27/23 20:00 04/27/23 20:00 Temperature Pulse Rate 103 H 99 H Respiratory Rate 18 Blood Pressure 124/65 Pulse Oximetry 97 94 Oxygen Delivery Method 04/27/23 20:30 04/27/23 21:00 Temperature Pulse Rate 97 H 100 H Respiratory Rate 18 18 Blood Pressure 121/62 137/64 Pulse Oximetry 94 94 Oxygen Delivery Method Room Air Room Air MDM - Skin/Abscess/Foreign Bdy Lab Data 04/27/23 20:15 04/27/23 20:15 Labs: Lab Results 04/27/23 Range/Units 20:15 WBC 2.3 L (4.5-11.0) X10^3/uL RBC 2.80 L (4.5-5.9) X10^6/uL Hgb 8.4 L (13.5-17.5) g/dL Hct 24.9 L (41-53) % MCV 89.0 (80-100) fL MCH 29.9 (26-34) PG MCHC 33.5 (30-36) % RDW 15.5 H (11.6-14.8) % Plt Count 55 L (150-400) X10^3/uL Neut % (Auto) 64.8 (50-75) % Lymph % (Auto) 19.6 L (25-40) % [place] % (Auto) 14.9 H (3-14) % Eos % (Auto) 0.1 L (2-4) % Baso % (Auto) 0.6 (0-2) % Neut # (Auto) 1500 (2452-6538) /uL Lymph # (Auto) 400 L (1864-6429) /uL [place] # (Auto) 300 (0-900) /uL Eos # (Auto) 0 (0-450) /uL Baso # (Auto) 0 (0-100) /uL ESR 65 H (0-15) MM/HR Sodium 135 L (137-145) mmol/L Potassium 4.0 (3.4-5.1) mmol/L Chloride 105 (98-107) mmol/L Carbon Dioxide 25 (22-32) mmol/L BUN 13 (9-20) mg/dL Creatinine 0.56 L (0.66-1.25) mg/dL Estimated GFR > 60 (>60) mL/min BUN/Creatinine Ratio 23.2 H (6-22) Glucose 103 H (70-100) mg/dL Lactate 1.0 (0.7-2.1) mmol/L Calcium 8.3 L (8.4-10.2) mg/dL Total Bilirubin 1.0 (0.2-1.3) mg/dL AST 39 (17-59) IU/L ALT 24 (<50) IU/L Alkaline Phosphatase 144 H (38-126) U/L C-Reactive Protein 5.9 H (<1.0) mg/dL Total Protein 6.7 (6.3-8.2) g/dL Albumin 3.1 L (3.5-5.0) g/dL Globulin 3.6 (1.7-4.1) g/dL Albumin/Globulin Ratio 0.9 L (1.0-2.8) Procalcitonin 0.30 (<0.5) ng/mL Discharge Plan Departure Patient Disposition: Admitted as Observation Clinical Impression: Pancytopenia, Polysubstance use disorder Cellulitis Qualifiers: Site of cellulitis: extremity Site of cellulitis of extremity: lower extremity Laterality: left Qualified Code(s): L03.116 - Cellulitis of left lower limb Admit Date/Time: 04/27/23 21:20 Admit Provider: Abiel Duncan
[2023-04-27 20:27] LABS: Add Manual Diff / Slide Review NO; Basophils Absolute Auto 0 /uL (0-100); Basophils Percent Auto 0.6 % (0-2); Eosinophils Absolute Auto 0 /uL (0-450); Eosinophils Percent Auto 0.1 % (2-4); Hematocrit 24.9 % (41-53); Hemoglobin 8.4 g/dL (13.5-17.5); Lymphocytes Absolute Auto 400 /uL (1100-4500); Lymphocytes Percent Auto 19.6 % (25-40); Mean Corpuscular HGB Conc 33.5 % (30-36); Mean Corpuscular Hemoglobin 29.9 PG (26-34); Monocytes Absolute Auto 300 /uL (0-900); Monocytes Percent Auto 14.9 % (3-14); Neutrophils Absolute Auto 1500 /uL (1500-7000); Neutrophils Percent Auto 64.8 % (50-75); Platelet Count 55 X10^3/uL (150-400); Red Cell Distribution Width 15.5 % (11.6-14.8); White Blood Cell Count 2.3 X10^3/uL (4.5-11.0)
[2023-04-27 20:38] LABS: Alanine Aminotransferase 24 IU/L (<50); Albumin 3.1 g/dL (3.5-5.0); Albumin Globulin Ratio 0.9 (1.0-2.8); Alkaline Phosphatase 144 U/L (38-126); Aspartate Aminotransferase 39 IU/L (17-59); BUN Creatinine Ratio 23.2 (6-22); Blood Urea Nitrogen 13 mg/dL (9-20); Calcium 8.3 mg/dL (8.4-10.2); Carbon Dioxide 25 mmol/L (22-32); Chloride 105 mmol/L (98-107); Estimated Glomerular Filt Rate > 60 mL/min (>60); Globulin 3.6 g/dL (1.7-4.1); Glucose 103 mg/dL (70-100); HEMOLYSIS < 15 (0-50); Sodium 135 mmol/L (137-145); Total Protein 6.7 g/dL (6.3-8.2)
[2023-04-27 20:53] LABS: C-Reactive Protein Quant 5.9 mg/dL (<1.0)
[2023-04-27 20:55] LABS: Erythrocyte Sedimentation Rate 65 MM/HR (0-15)
[2023-04-27] MEDS: cefTRIAXone 2,000 MG in SODIUM CHLORIDE 0.9% 100 ML 200 MG IV (21:18)
[2023-04-27] MEDS: VANCOMYCIN 1,500 MG/300 ML PIGGYBACK 200 MG IV (22:10)
--- NOTE | 2023-04-27 23:50 | DI.US.S_ITS ---
PROCEDURE: US PERIPH VENOUS LOW EXTREM BI INDICATIONS: edema and erythema/tender TECHNIQUE: Real-time imaging, as well as color and pulse Doppler interrogation, were performed of the deep veins of both legs from the inguinal ligament to the popliteal fossa, with documentation of the visualized calf veins. COMPARISON: None. FINDINGS: Right: The common femoral, femoral, popliteal, and the visualized calf veins are normally compressible, and free of intraluminal thrombus. Color and pulse Doppler demonstrate normal phasic intravascular flow. There is normal augmentation response to distal compression maneuver. Left: The common femoral, femoral, popliteal, and the visualized calf veins are normally compressible, and free of intraluminal thrombus. Color and pulse Doppler demonstrate normal phasic intravascular flow. There is normal augmentation response to distal compression maneuver. IMPRESSION: No findings of deep venous thrombosis in either lower extremity. Dictated by: Apoorva Chavez M.D. on 04/28/2023 at 9:43 Approved by: Apoorva Chavez M.D. on 04/28/2023 at 9:44
--- NOTE | 2023-04-27 23:56 | PM.HP.1 ---
History of Present Illness History of Present Illness Chief complaint: cellulitis lower left extremity Narrative: 32 years old obese male with a past medical history IV drug use, anxiety, lower extremity cellulitis, endocarditis and other medical issues presented emergency room for worsening edema, erythema and tenderness in the left lower extremity for the past over a week. Denies any fever episodes. Does scratch his left leg and has a small scab on the left knee. No recent trauma or exposure to pets. He was evaluated in the emergency room yesterday and was advised admission but the patient left AGAINST MEDICAL ADVICE. CT scan had shown significant cellulitis but no abscess. He was discharged on oral Keflex after receiving a dose of IV Rocephin/vancomycin. Now returns to the emergency room for persistent symptoms not responding to oral medications. Patient was given a dose of IV Rocephin/vancomycin and admitted for further evaluation [facility] Medical History Endocarditis Social History household members: family Smoking Status: Current every day smoker alcohol intake: former Meds Home Medications and Allergies Home Medications Medication Instructions Recorded Confirmed Type aripiprazole 400 mg suspension, 400 mg IM QMONTH 06/11/19 06/11/19 History extended rel.intramuscular syringe (Jeniffer Cisneros) bupropion HCl 150 mg 24 hr tablet, 150 mg PO DAILY 06/11/19 History extended release buspirone 30 mg tablet 30 mg PO BID 06/11/19 History prazosin 2 mg capsule 6 mg PO DAILY 06/11/19 History Allergies Allergy/AdvReac Type Severity Reaction Status Date / Time No Known Drug Allergies Allergy Verified 01/22/22 11:45 Review of Systems Review of Systems Narrative: Review of system is negative unless otherwise stated in history present illness Exam Vital Signs (past 8 hours): - 04/27/23 19:40 04/27/23 19:49 04/27/23 19:50 Temperature 98.4 F Pulse Rate 110 H 119 H Respiratory Rate 20 Blood Pressure 137/68 137/74 Pulse Oximetry 98 97 Oxygen Delivery Method Room Air 04/27/23 19:50 04/27/23 20:00 04/27/23 20:00 Temperature Pulse Rate 103 H 99 H Respiratory Rate 18 Blood Pressure 124/65 Pulse Oximetry 97 94 Oxygen Delivery Method 04/27/23 20:30 04/27/23 21:00 04/27/23 21:30 Temperature Pulse Rate 97 H 100 H 102 H Respiratory Rate 18 18 18 Blood Pressure 121/62 137/64 113/58 L Pulse Oximetry 94 94 93 Oxygen Delivery Method Room Air Room Air Room Air 04/27/23 21:50 04/27/23 22:17 Temperature 98.5 F Pulse Rate 100 H Respiratory Rate 20 Blood Pressure 127/63 Pulse Oximetry 93 Oxygen Delivery Method Room Air Oxygen Delivery Method Room Air Narrative Exam Narrative: Patient is able to take in full sentences and give a good history. Significant erythema with edema and tenderness noted extending from the ankle up to the groin on the left lower extremity Objective Labs 04/27/23 20:15 04/27/23 20:15 Labs: Laboratory Results - last 24 hr 04/27/23 20:15 WBC 2.3 L RBC 2.80 L Hgb 8.4 L Hct 24.9 L MCV 89.0 MCH 29.9 MCHC 33.5 RDW 15.5 H Plt Count 55 L Neut % (Auto) 64.8 Lymph % (Auto) 19.6 L [place] % (Auto) 14.9 H Eos % (Auto) 0.1 L Baso % (Auto) 0.6 Neut # (Auto) 1500 Lymph # (Auto) 400 L [place] # (Auto) 300 Eos # (Auto) 0 Baso # (Auto) 0 ESR 65 H Sodium 135 L Potassium 4.0 Chloride 105 Carbon Dioxide 25 BUN 13 Creatinine 0.56 L Estimated GFR > 60 BUN/Creatinine Ratio 23.2 H Glucose 103 H Lactate 1.0 Calcium 8.3 L Total Bilirubin 1.0 AST 39 ALT 24 Alkaline Phosphatase 144 H C-Reactive Protein 5.9 H Total Protein 6.7 Albumin 3.1 L Globulin 3.6 Albumin/Globulin Ratio 0.9 L Procalcitonin 0.30 Assessment & Plan Assessment & Plan narrative: 32 years old obese male with a past medical history IV drug use, anxiety, lower extremity cellulitis, endocarditis and other medical issues presented emergency room for worsening edema, erythema and tenderness in the left lower extremity for the past over a week. Denies any fever episodes. Does scratch his left leg and has a small scab on the left knee. No recent trauma or exposure to pets. He was evaluated in the emergency room yesterday and was advised admission but the patient left AGAINST MEDICAL ADVICE. CT scan had shown significant cellulitis but no abscess. He was discharged on oral Keflex after receiving a dose of IV Rocephin/vancomycin. Now returns to the emergency room for persistent symptoms not responding to oral medications. Patient was given a dose of IV Rocephin/vancomycin and admitted for further evaluation 1. Lower extremity cellulitis affecting the almost entire left lower extremity in a patient with a history of cellulitis and also likely lymphedema #2 lymphedema #3 leukopenia Pending culture results, continue the vancomycin and IV Rocephin initiated in the emergency room. Pharmacy to dose the medications. Keep the leg elevated and follow-up with a venous Doppler. If the Doppler is negative for DVT, initiate Senthil wrap 4. History of IV drug abuse. Monitor for now 5 depression/anxiety. Reviewed home medications once verification has been completed and resumed 6 DVT prophylaxis will be Lovenox Patient will be admitted under inpatient status. Given the cellulitis involving greater than 50% of the lower extremities and not responding to outpatient management, meets criteria for inpatient with expected length of stay greater than 2 midnights Patient was evaluated with the help of a video communication device. Location of the provider was [facility] VTE Deep Vein Thrombosis/Pulmonary Embolism Present on Admission: No
[2023-04-28 04:30] VITALS: BP 110/56; PULSE 92; RESP 22; TEMP 37.1; O2SAT 96
[2023-04-28 05:06] LABS: Hematocrit 22.6 % (41-53); Hemoglobin 7.6 g/dL (13.5-17.5); Mean Corpuscular HGB Conc 33.8 % (30-36); Mean Corpuscular Hemoglobin 29.8 PG (26-34); Mean Corpuscular Volume 88.3 fL (80-100); Platelet Count 51 X10^3/uL (150-400); Red Blood Cell Count 2.56 X10^6/uL (4.5-5.9); Red Cell Distribution Width 15.4 % (11.6-14.8)
[2023-04-28 05:11] LABS: Alanine Aminotransferase 22 IU/L (<50); Albumin 2.6 g/dL (3.5-5.0); Albumin Globulin Ratio 0.8 (1.0-2.8); Alkaline Phosphatase 118 U/L (38-126); Aspartate Aminotransferase 36 IU/L (17-59); BUN Creatinine Ratio 24.5 (6-22); Bilirubin Total 0.8 mg/dL (0.2-1.3); Blood Urea Nitrogen 13 mg/dL (9-20); Calcium 7.9 mg/dL (8.4-10.2); Carbon Dioxide 25 mmol/L (22-32); Chloride 103 mmol/L (98-107); Estimated Glomerular Filt Rate > 60 mL/min (>60); Globulin 3.3 g/dL (1.7-4.1); Glucose 127 mg/dL (70-100); HEMOLYSIS < 15 (0-50); Potassium 3.6 mmol/L (3.4-5.1); Sodium 133 mmol/L (137-145); Total Protein 5.9 g/dL (6.3-8.2)
[2023-04-28 05:25] LABS: Add Manual Diff / Slide Review YES
[2023-04-28 05:26] LABS: White Blood Cell Count 1.8 X10^3/uL (4.5-11.0)
--- NOTE | 2023-04-28 05:39 | PC.NURSE ---
WBC 1.8, Hospitalist solid waste division supervisor notified, no order received.
[2023-04-28 05:44] LABS: Neutrophils Absolute Manual 1188 /uL (3000-5900); RBC Morphology Normal Morphology; Total Cells Counted 100
[2023-04-28 08:00] VITALS: BP 119/55; PULSE 85; RESP 18; O2SAT 94
[2023-04-28] MEDS: VANCOMYCIN 1,250 MG/250 ML PIGGYBACK 250 MG IV ×3 (08:09→22:03)
[2023-04-28 08:32] LABS: Appearance Urine UA CLEAR; Bilirubin Urine UA NEGATIVE (NEGATIVE); Color Urine UA YELLOW; Glucose Urine UA NEGATIVE (Negative); Ketones Urine UA NEGATIVE (NEGATIVE); Leukocyte Esterase Urine UA NEGATIVE (NEGATIVE); Nitrite Urine UA NEGATIVE (Negative); Occult Blood Urine UA NEGATIVE (Negative); Protein Urine UA NEGATIVE (Negative); Specific Gravity Urine UA >=1.030 (1.000-1.035)
[2023-04-28 08:57] LABS: UR Morphine/Opiate cutoff 300 Negative (Negative); Ur Creatinine Normal (Normal); Ur Specific Gravity Normal (Normal); Urine Amphetamines Positive (Negative); Urine Barbiturates Negative (Negative); Urine Benzodiazepines Negative (Negative); Urine Cocaine Negative (Negative); Urine MDMA Positive (Negative); Urine Methadone Negative (Negative); Urine Methamphetamines Positive (Negative); Urine Oxycodone Negative (Negative); Urine Phencyclidine Negative (Negative); Urine Tetrahydrocannabinol Negative (Negative); Urine Tricyclic Antidepressant Negative (Negative); Urine pH Normal (Normal)
[2023-04-28 09:00] LABS: Bacteria Urine None Seen; Culture Indicated Urine Cult Not Indicated; RBC Urine None Seen (0-5/HPF); Squamous Epithelial Cell Urine None Seen (0-5/HPF); WBC Urine None Seen (0-5/HPF)
[2023-04-28] MEDS: SODIUM CHLORIDE 0.9% 1,000 ML 100 ML IV (09:27)
[2023-04-28 11:54] LABS: HIV 1 & 2 Ab/Ag 4th Gen Combo NEGATIVE (NEGATIVE)
[2023-04-28 12:16] VITALS: BP 120/65; PULSE 89; RESP 18; TEMP 37.3; O2SAT 95
[2023-04-28 16:00] VITALS: BP 121/59; PULSE 79; RESP 22; TEMP 36.8; O2SAT 94
--- NOTE | 2023-04-28 16:12 | CM.DANOTE ---
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 Patient lived in [place] during this IV abx course. Explained that it is likely patient will not be considered a candidate for ongoing IV abx via home infusion due to his hx of IVDU. Patient states understanding. JW Original Note: Initial Assessment Note/ COUNTER SERVER Note COUNTER SERVER consult received for this 32 yo M returns after recent admission for cellulitis during which patient left AMA. Patient returns with same dx, tox is + for meth, amphetamines, ecstasy. Met w/patient, introduced self and role. Psychosocial : Patient currently living with his grandmother in [facility]. Patient says his grandma is quite frail. Patient also has a dog that he cares dearly about. Patient is unemployed and has been on disability for approx 6-6 years related to his dx of Schizophrenia. Patient lists his Dad Kenyon Byers () as his primary contact. Patient plans to return home to his grandma's home via private vehicle when discharged. Current Drug use: Patient reports hx of IVDU, denies current IVDU. Patient admits to current use of meth and fentanyl. Patient states that the meth is likely laced with ecstasy. Hx Drug Use: Patient reports a long standing hx of polysubstance abuse with multiple inpatient and outpatient [facility] treatments. Patient's last inpatient [facility] stay was in [place] 4 yrs ago. Patient has been sober for two years approx 3 years ago when he was consistently attending [facility] for Methadone treatment. MH: Patient denies current suicidal ideation. Patient has struggled with mental illness and currently a part of PACT which includes, but is not limited to, counseling 3-4 times weekly, peer support available 08/11 and administration of IV ambilify shot (once monthly?). Patient feels very supported by his PACT team and feels the most capable of sobriety when people support him without judgment, which the PACT team provides, according to patient. Patient has hx of detainment, patient was detained (he thinks) to [place] approx 10 years ago. Intervention: Discussed patient's goals. Patient plans to remain admitted for medical treatment. Patient would like to remain sober, says that in order for him to be successful he will need to reengage with [facility]. Patient admits he knows what to do to access services at [facility] again. Patient reports feeling proud of his sobriety when he maintains it and that relapse occurs when the stressors in his life begin to intensify. Patient denies current need from this COUNTER SERVER, states appreciation for this visit. Plan: Discharge home w/family and resumption of PACT support anticipated. Patient knows how to access [facility] and has support from the PACT team to reconnect with methadone maintenance and wellness services through [facility]. KRYSTINA Ventura Discharge Planning/Care Management CM Discharge Assessment Start: 04/28/23 16:10 Freq: Status: Active Protocol: Document 04/28/23 16:10 OZ (Rec: 04/28/23 16:12 OZ [id number]) Discharge Planning Assessment Assigned Automotive Machinist KRYSTINA George DPOA/Assigned Designee Name Kenyon Byers, father (Osvaldo) Contact Information [phone] Advance Directives? No History Provided By Patient Prior Living Arrangements House Household Members family Type of transporation used prior to Drives own vehicle admit Independent with ADL's Yes Is patient alert and oriented? Yes Barriers to Discharge No Discharge Plan Home Transportation Arrangement Unknown Referrals Initiated None needed Whiteboard Updated in Patient Room with Yes name and ext. # of Automotive Machinist
--- NOTE | 2023-04-28 16:35 | CM.DPNOTE ---
DCP Cont Patient has [employer] and receives food stamps. Patient has [facility] M[facility] from disability benefits. OZ
--- NOTE | 2023-04-28 17:42 | P.PN_ITS ---
Subjective Subjective Interval history: Patient somnolent and did not wake up. Leg examined and quite red and swollen. HIV negative. Exam Vital Signs (past 8 hours): - 04/28/23 12:16 04/28/23 16:00 Temperature 99.1 F 98.2 F Pulse Rate 89 79 Respiratory Rate 18 22 Blood Pressure 120/65 121/59 L Pulse Oximetry 95 94 Oxygen Flow Rate 0 Oxygen Delivery Method Room Air Oxygen Flow Rate 0 Narrative Exam Narrative: GEN: somnolent HEENT: moist mucous membranes, PERRL NECK: trachea midline, no JVD CV: regular rate and rhythm, no murmurs PULM: clear bilaterally ABD: soft, nontender, nondistended, no organomegaly EXT: significant erythema with edema and tenderness noted extending from the ankle up to the groin on the left lower extremity, no fluctuance NEURO: no focal deficits Objective Labs 04/28/23 04:30 04/28/23 04:30 Labs: Laboratory Results - last 24 hr 04/27/23 04/28/23 04/28/23 20:15 04:30 08:26 WBC 2.3 L 1.8 L* RBC 2.80 L 2.56 L Hgb 8.4 L 7.6 L Hct 24.9 L 22.6 L MCV 89.0 88.3 MCH 29.9 29.8 MCHC 33.5 33.8 RDW 15.5 H 15.4 H Plt Count 55 L 51 L Neut % (Auto) 64.8 Not Reportable Lymph % (Auto) 19.6 L Not Reportable [place] % (Auto) 14.9 H Not Reportable Eos % (Auto) 0.1 L Not Reportable Baso % (Auto) 0.6 Not Reportable Neut # (Auto) 1500 Lymph # (Auto) 400 L Not Reportable [place] # (Auto) 300 Not Reportable Eos # (Auto) 0 Baso # (Auto) 0 Not Reportable Total Counted 100 Seg Neutrophils % 66.0 Lymphocytes % (Manual) 23.0 L Monocytes % (Manual) 9.0 Basophils % (Manual) 2.0 H Neutrophils # (Manual) 1188 L RBC Morphology Normal morphology ESR 65 H Sodium 135 L 133 L Potassium 4.0 3.6 Chloride 105 103 Carbon Dioxide 25 25 BUN 13 13 Creatinine 0.56 L 0.53 L Estimated GFR > 60 > 60 BUN/Creatinine Ratio 23.2 H 24.5 H Glucose 103 H 127 H Lactate 1.0 Calcium 8.3 L 7.9 L Magnesium 2.0 Total Bilirubin 1.0 0.8 AST 39 36 ALT 24 22 Alkaline Phosphatase 144 H 118 C-Reactive Protein 5.9 H Total Protein 6.7 5.9 L Albumin 3.1 L 2.6 L Globulin 3.6 3.3 Albumin/Globulin Ratio 0.9 L 0.8 L Procalcitonin 0.30 Urine Color Yellow Urine Appearance Clear Urine pH 5.0 Ur Specific [place] >=1.030 H Urine Protein Negative Urine Glucose (UA) Negative Urine Ketones Negative Urine Occult Blood Negative Urine Nitrate Negative Urine Bilirubin Negative Urine Urobilinogen 1.0 Ur Leukocyte Esterase Negative Urine RBC None seen Urine WBC None seen Ur Squamous Epith Cells None seen Urine Bacteria None seen Ur Culture Indicated? Cult not indicated U Opiates 300ng/mL cut Negative Ur Oxycodone Screen Negative Urine Methadone Screen Negative Ur Barbiturates Screen Negative U Tricyclic Antidepress Negative Ur Phencyclidine Scrn Negative Ur Amphetamines Screen Positive H U Methamphetamines Scrn Positive H Ur MDMA Scrn (Ecstasy) Positive H U Benzodiazepines Scrn Negative Urine Cocaine Screen Negative U Marijuana (THC) Screen Negative Urine Specific [place] Ur Creatinine HIV 1&2 Ab/P24 Ag 4thGn Negative 04/28/23 08:26 WBC RBC Hgb Hct MCV MCH MCHC RDW Plt Count Neut % (Auto) Lymph % (Auto) [place] % (Auto) Eos % (Auto) Baso % (Auto) Neut # (Auto) Lymph # (Auto) [place] # (Auto) Eos # (Auto) Baso # (Auto) Total Counted Seg Neutrophils % Lymphocytes % (Manual) Monocytes % (Manual) Basophils % (Manual) Neutrophils # (Manual) RBC Morphology ESR Sodium Potassium Chloride Carbon Dioxide BUN Creatinine Estimated GFR BUN/Creatinine Ratio Glucose Lactate Calcium Magnesium Total Bilirubin AST ALT Alkaline Phosphatase C-Reactive Protein Total Protein Albumin Globulin Albumin/Globulin Ratio Procalcitonin Urine Color Urine Appearance Urine pH Normal Ur Specific [place] Urine Protein Urine Glucose (UA) Urine Ketones Urine Occult Blood Urine Nitrate Urine Bilirubin Urine Urobilinogen Ur Leukocyte Esterase Urine RBC Urine WBC Ur Squamous Epith Cells Urine Bacteria Ur Culture Indicated? U Opiates 300ng/mL cut Ur Oxycodone Screen Urine Methadone Screen Ur Barbiturates Screen U Tricyclic Antidepress Ur Phencyclidine Scrn Ur Amphetamines Screen U Methamphetamines Scrn Ur MDMA Scrn (Ecstasy) U Benzodiazepines Scrn Urine Cocaine Screen U Marijuana (THC) Screen Urine Specific [place] Normal Ur Creatinine Normal HIV 1&2 Ab/P24 Ag 4thGn [facility] Medical History Endocarditis Social History household members: family Smoking Status: Current every day smoker alcohol intake: former Assessment & Plan Assessment & Plan narrative: # LLE cellulitis -CT with extensive soft tissue swelling, no abscess -continue rocephin and vanc -DVT US negative -check MRSA screen # lymphedema # pancytopenia -unclear cause, HIV negative -peripheral smear sent # History of IV drug abuse -UDS positive for meth and ectasy. # depression/anxiet -on monthly ability injections DVT prophylaxis will be Lovenox Dispo: Pending improvement in cellulitis. Likely 3 days. Quality VTE Deep Vein Thrombosis/Pulmonary Embolism Present on Admission: No
--- NOTE | 2023-04-28 18:35 | PC.NURSE ---
Day shift: Pt A&Ox4, talkative and cooperative. Up in room SBA. Ate 100% of breakfast. Pt stated he was fatigued, requested to rest undisturbed. Pt rested comfortably most of day, vital signs stable, declined lunch. Pt SBA to BR, steady in ambulation, states still very fatigued, VSS. Call light within reach, care ongoing. Will continue to monitor.
[2023-04-28] MEDS: cefTRIAXone 2,000 MG in SODIUM CHLORIDE 0.9% 100 ML 200 MG IV (21:11)
[2023-04-28 21:42] LABS: MRSA (Nasal) PCR Not Detected (Not Detect)
[2023-04-29 04:41] LABS: Add Manual Diff / Slide Review NO; Basophils Absolute Auto 0 /uL (0-100); Basophils Percent Auto 0.6 % (0-2); Eosinophils Absolute Auto 0 /uL (0-450); Eosinophils Percent Auto 0.1 % (2-4); Hematocrit 23.1 % (41-53); Hemoglobin 7.8 g/dL (13.5-17.5); Lymphocytes Absolute Auto 500 /uL (1100-4500); Lymphocytes Percent Auto 25.6 % (25-40); Mean Corpuscular HGB Conc 33.8 % (30-36); Mean Corpuscular Hemoglobin 30.1 PG (26-34); Monocytes Absolute Auto 200 /uL (0-900); Monocytes Percent Auto 11.7 % (3-14); Neutrophils Absolute Auto 1100 /uL (1500-7000); Platelet Count 57 X10^3/uL (150-400); Red Cell Distribution Width 15.2 % (11.6-14.8)
[2023-04-29 04:44] LABS: White Blood Cell Count 1.8 X10^3/uL (4.5-11.0)
[2023-04-29 04:45] LABS: BUN Creatinine Ratio 19.6 (6-22); Blood Urea Nitrogen 9 mg/dL (9-20); Calcium 7.8 mg/dL (8.4-10.2); Carbon Dioxide 24 mmol/L (22-32); Chloride 105 mmol/L (98-107); Estimated Glomerular Filt Rate > 60 mL/min (>60); Glucose 89 mg/dL (70-100); HEMOLYSIS < 15 (0-50); Potassium 4.1 mmol/L (3.4-5.1); Sodium 133 mmol/L (137-145)
[2023-04-29] MEDS: VANCOMYCIN 1,250 MG/250 ML PIGGYBACK 250 MG IV (07:58)
[2023-04-29 08:00] VITALS: BP 106/59; PULSE 87; RESP 18; O2SAT 96
--- NOTE | 2023-04-29 12:33 | P.DS_ITS ---
History of Present Illness History of Present Illness Chief complaint: cellulitis lower left extremity Narrative: 32 years old obese male with a past medical history IV drug use, anxiety, lower extremity cellulitis, endocarditis and other medical issues presented emergency room for worsening edema, erythema and tenderness in the left lower extremity for the past over a week. Denies any fever episodes. Does scratch his left leg and has a small scab on the left knee. No recent trauma or exposure to pets. He was evaluated in the emergency room yesterday and was advised admission but the patient left AGAINST MEDICAL ADVICE. CT scan had shown significant cellulitis but no abscess. He was discharged on oral Keflex after receiving a dose of IV Rocephin/vancomycin. Now returns to the emergency room for persistent symptoms not responding to oral medications. Patient was given a dose of IV Rocephin/vancomycin and admitted for further evaluation Discharge Providers Provider Date of admission: 04/27/23 21:20 Discharge Date: 04/29/23 Primary care physician: Chantale Martin MD Consults: 04/27/23 23:47 Consult to Pharmacy Routine Comment: dose Rocephin and vancomcyin 04/28/23 10:14 Consult to RESIZER OPERATOR - Supervisor [employer] Routine Comment: substance abuse Discharge provider: Bernardo Jacobs DO Summary Hospital Course Discharge Diagnosis: # LLE cellulitis -CT with extensive soft tissue swelling, no abscess -continue rocephin and vanc -DVT US negative -MRSA screen negative -patient left AMA and given paper script for bactrim DS x5 days # lymphedema # pancytopenia -unclear cause, HIV negative -peripheral smear sent # History of IV drug abuse -UDS positive for meth and ectasy. # depression/anxiety -on monthly ability injections Hospital Course: Admitted for LLE cellulitis. Likely due to strep but put on vanco and rocephin. MRSA negative. Was improving but on day 3 patient left AMA. He was given a paper script for oral bactrim DS BID x5 days to complete course. Exam Vital Signs (past 8 hours): - 04/29/23 08:00 Pulse Rate 87 Respiratory Rate 18 Blood Pressure 106/59 L Pulse Oximetry 96 Oxygen Delivery Method Room Air Oxygen Flow Rate 0 Narrative Exam Narrative: GEN: NAD, anxious HEENT: moist mucous membranes, PERRL NECK: trachea midline, no JVD CV: regular rate and rhythm, no murmurs PULM: clear bilaterally ABD: soft, nontender, nondistended, no organomegaly EXT: erythema extending up leg inner calf to thigh is improving, still with warmth and swelling NEURO: no focal deficits Objective Labs 04/29/23 03:58 04/29/23 03:58 Labs: Laboratory Results - last 24 hr 04/28/23 04/29/23 17:42 03:58 WBC 1.8 L* RBC 2.60 L Hgb 7.8 L Hct 23.1 L MCV 89.0 MCH 30.1 MCHC 33.8 RDW 15.2 H Plt Count 57 L Neut % (Auto) 62.0 Lymph % (Auto) 25.6 [place] % (Auto) 11.7 Eos % (Auto) 0.1 L Baso % (Auto) 0.6 Neut # (Auto) 1100 L Lymph # (Auto) 500 L [place] # (Auto) 200 Eos # (Auto) 0 Baso # (Auto) 0 Sodium 133 L Potassium 4.1 Chloride 105 Carbon Dioxide 24 BUN 9 Creatinine 0.46 L Estimated GFR > 60 BUN/Creatinine Ratio 19.6 Glucose 89 Calcium 7.8 L Nasal Screen MRSA (PCR) Not detected [facility] Medical History Endocarditis Social History household members: family Smoking Status: Current every day smoker alcohol intake: former Discharge Plan Discharge Plan Patient Disposition: Left Against Medical Advice Discharge orders & Medications Prescriptions: New sulfamethoxazole-trimethoprim [Bactrim DS] 800-160 mg tablet 1 tab PO BID 5 Days Qty: 10 0RF Continued Abilify Maintena 400 mg suspension,extended rel syring 400 mg IM QMONTH Follow up/Referrals: Chantale Martin MD [Primary Care Provider] - Visit Report/Discharge Packet Stand Alone Forms: Patient Portal/API, Stroke Signs & Symptoms Discharge Data Primary Care Provider: Chantale Martin Quality VTE Deep Vein Thrombosis/Pulmonary Embolism Present on Admission: No
--- NOTE | 2023-04-29 13:14 | PC.NURSE ---
Patient is A&Ox4 VSS, afebrile this a.m. He is very somnolent and restful. He denies pain to LLE, which is very red with scaly appearance. He denies much appetite this a.m. Upon awakening this a.m. after MD evaluating patient and explaining the plan of care and treatment, he requests to leave AMA. He signs the AMA form and receives a po prescription from the MD. RN escorted patient with all of his personal belongings to Emergency door entrance where he states he is being picked up by a friend at 1224.
--- NOTE | 2023-04-29 13:38 | CM.DPNOTE ---
DCP Note MATERIAL DISPOSITION INSPECTOR reviewed EMR. Per provider in rounds, likely here a few more days for antibiotics. Per chart review, pt left AMA at around 1230 today. MATERIAL DISPOSITION INSPECTOR unable to meet with pt prior to leaving. Per previous CM/SW note, likely home with grandmother and PACT support resumption/[facility] wellness center. KRYSTINA Hillman
== END 2023-04-29 12:30 | disposition left against medical advice (07) | DRG 603 ==
LOC: ED 21:12 → AC 21:21 → ICU 21:35
PROVIDERS: Student in an Organized Health Care Education/Training Program; Admitting Provider Internal Medicine; Emergency Provider Emergency Medicine; PCP Family Medicine; Referring Provider Emergency Medicine; Visit Provider Internal Medicine
DX: L03.116 Cellulitis of left lower limb (principal); D61.818 Other pancytopenia; I89.0 Lymphedema, not elsewhere classified; F19.11 Other psychoactive substance abuse, in remission; Z53.29 Procedure and treatment not carried out because of patient's decision for other reasons
CPT/HCPCS: 36415; 73701; 80048; 80053; 80305; 81001; 83605; 83735; 84145; 85007; 85025; 85651; 86140; 87040; 87389; 87797; 93970; 96365; 99284; J0696; Q9967

== ENCOUNTER 2023-08-04 19:53 | Emergency (ER) | payer MEDICARE, MEDICAID, SELFPAY ==
[2023-04-27 22:17] VITALS: BMI 32.1
[2023-08-04 20:04] VITALS: BP 132/60; PULSE 83; RESP 20; TEMP 36.4; O2SAT 98; BMI 33.9
--- NOTE | 2023-08-04 21:17 | PC.NURSE ---
patient is tearful and under his blanket. he is cooperative and requested ice water. He was also offered food that he took. He asks for food that is still sealed in the original wrapper. He preferred bottled water and was ok with having ice water from a cup.
--- NOTE | 2023-08-04 23:20 | ED.PSYCH ---
HPI - Psych <Shannan Dickson MD - Last Filed: 08/08/23 11:11> General Chief Complaint: Psychiatric Symptoms Stated Complaint: psych, med change Time Seen by Provider: 08/04/23 21:55 Source: patient and EMS Mode of arrival: EMS History of Present Illness HPI Narrative: 32-year-old gentleman with a history schizophrenia currently on injectable Abilify and has been taking this. History of polysubstance use and concerns for escalating paranoia. Brought in by [employer] police within [facility] regarding progressively declining mental health in the last few weeks. Increased paranoia and this evening escalated to the point where he was chasing several family members with a hand-held Taser. Patient denies this. He continues to state that he has not crazy and his family is trying to get him. He states that he is hearing voices but feels that he is at his baseline. He has not complaining of command hallucinations. He would like to go home to take care of his dogs and clearly has minimal insight into escalating behaviors. He states that he does have counselor and has been engaged with them. I do not have a way to confirm that this time. He has not complaining of fever, cough, chills, shortness of breath. He has not currently suicidal or homicidal he has significant delusions, poor overall insight. Related Data Home Medications Medication Instructions Recorded Confirmed aripiprazole 400 mg suspension, 400 mg IM QMONTH 06/11/19 04/28/23 extended rel.intramuscular syringe (Abilify Maintena) Allergies Allergy/AdvReac Type Severity Reaction Status Date / Time No Known Drug Allergies Allergy Verified 08/04/23 20:18 Review of Systems <Shannan Dickson MD - Last Filed: 08/08/23 11:11> Review of Systems Narrative: Pertinent positive and negative findings as per HPI Patient History <Shannan Dickson MD - Last Filed: 08/08/23 11:11> Medical History (Updated 08/05/23 @ 01:25 by Shannan Dickson MD) Schizophrenia Polysubstance use disorder Endocarditis Social History household members: family Smoking Status: Current every day smoker alcohol intake: former Smoking Status: Current every day smoker tobacco type: cigarettes and vaping alcohol intake frequency: 0-2 drinks per day Substance Use Type: heroin, opiates and methamphetamine Exam <Shannan Dickson MD - Last Filed: 08/08/23 11:11> Initial Vital Signs Initial Vital Signs: Vital Signs Temperature 97.5 F L 08/04/23 20:04 Pulse Rate 83 08/04/23 20:04 Respiratory Rate 20 08/04/23 20:04 Blood Pressure 132/60 08/04/23 20:04 Pulse Oximetry 98 08/04/23 20:04 Oxygen Delivery Method Room Air 08/04/23 20:04 General: Disheveled, poor eye contact, flat affect, HEENT: Moist mucous membranes, normal sclera with reactive pupils, Respiratory: Lungs are clear to auscultation, no wheezing no rales no rhonchi. Full and symmetrical air movement Cardiac: Regular rate and rhythm with 3/6 systolic murmur Abdomen: Soft, nontender, good bowel tones, no flank pain Skin: Warm and dry, no rashes Neurologic: Grossly neurologically intact with no obvious asymmetries or abnormalities Extremities: No trauma, well perfused Psych: Significant paranoid delusions, he does not appear to be responding to internal stimuli this time, speech is fluent <Virginia Patrick DO - Last Filed: 08/05/23 11:29> Initial Vital Signs Initial Vital Signs: Vital Signs Temperature 97.5 F L 08/04/23 20:04 Pulse Rate 83 08/04/23 20:04 Respiratory Rate 20 08/04/23 20:04 Blood Pressure 132/60 08/04/23 20:04 Pulse Oximetry 98 08/04/23 20:04 Oxygen Delivery Method Room Air 08/04/23 20:04 <Shima Zaragoza DO - Last Filed: 08/08/23 04:55> Initial Vital Signs Initial Vital Signs: Vital Signs Temperature 97.5 F L 08/04/23 20:04 Pulse Rate 83 08/04/23 20:04 Respiratory Rate 20 08/04/23 20:04 Blood Pressure 132/60 08/04/23 20:04 Pulse Oximetry 98 08/04/23 20:04 Oxygen Delivery Method Room Air 08/04/23 20:04 Course <Shannan Dickson MD - Last Filed: 08/08/23 11:11> Orders Ordered: ED Orders 08/05/23 02:30 COVID19 -Nasal RAPID Stat Vital Signs Vital signs: Vital Signs - 8 hr 08/05/23 06:36 08/05/23 09:15 08/05/23 09:15 Pulse Rate 76 70 Respiratory Rate 18 Blood Pressure 119/58 L 120/66 Pulse Oximetry 96 98 Oxygen Delivery Method Room Air <Virginia Patrick DO - Last Filed: 08/05/23 11:29> Orders Ordered: ED Orders 08/05/23 02:30 COVID19 -Nasal RAPID Stat Vital Signs Vital signs: Vital Signs - 8 hr 08/05/23 06:36 08/05/23 09:15 08/05/23 09:15 Pulse Rate 76 70 Respiratory Rate 18 Blood Pressure 119/58 L 120/66 Pulse Oximetry 96 98 Oxygen Delivery Method Room Air <Shima Zaragoza DO - Last Filed: 08/08/23 04:55> Orders Ordered: ED Orders 08/05/23 02:30 COVID19 -Nasal RAPID Stat Vital Signs Vital signs: Vital Signs - 8 hr 08/05/23 06:36 08/05/23 09:15 08/05/23 09:15 Pulse Rate 76 70 Respiratory Rate 18 Blood Pressure 119/58 L 120/66 Pulse Oximetry 96 98 Oxygen Delivery Method Room Air MDM - Psych <Shannan Dickson MD - Last Filed: 08/08/23 11:11> Lab Data 08/05/23 00:41 08/04/23 23:45 Labs: Lab Results 08/04/23 08/04/23 08/04/23 Range/Units 23:35 23:35 23:45 WBC (4.5-11.0) X10^3/uL RBC (4.5-5.9) X10^6/uL Hgb (13.5-17.5) g/dL Hct (41-53) % MCV (80-100) fL MCH (26-34) PG MCHC (30-36) % RDW (11.6-14.8) % Plt Count (150-400) X10^3/uL Neut % (Auto) (50-75) % Lymph % (Auto) (25-40) % [place] % (Auto) (3-14) % Eos % (Auto) (2-4) % Baso % (Auto) (0-2) % Neut # (Auto) (7472-7623) /uL Lymph # (Auto) (8244-4651) /uL [place] # (Auto) (0-900) /uL Eos # (Auto) (0-450) /uL Baso # (Auto) (0-100) /uL Sodium 137 (137-145) mmol/L Potassium 4.0 (3.4-5.1) mmol/L Chloride 106 (98-107) mmol/L Carbon Dioxide 26 (22-32) mmol/L BUN 14 (9-20) mg/dL Creatinine 0.43 L (0.66-1.25) mg/dL Estimated GFR > 60 (>60) mL/min BUN/Creatinine Ratio 32.6 H (6-22) Glucose 98 (70-100) mg/dL Calcium 8.9 (8.4-10.2) mg/dL Total Bilirubin 1.3 (0.2-1.3) mg/dL AST 84 H (17-59) IU/L ALT 43 (<50) IU/L Alkaline Phosphatase 153 H (38-126) U/L Total Protein 7.6 (6.3-8.2) g/dL Albumin 3.8 (3.5-5.0) g/dL Globulin 3.8 (1.7-4.1) g/dL Albumin/Globulin Ratio 1.0 (1.0-2.8) TSH 1.64 (0.47-4.68) uIU/mL Urine Color Yellow Urine Appearance Slightly cloudy Urine pH 6.0 TNP (4.5-8.0) Ur Specific [place] >=1.030 H (1.000-1.035) Urine Protein 1+ H (Negative) Urine Glucose (UA) Negative (Negative) g/dL Urine Ketones 1+ H (NEGATIVE) Urine Occult Blood Trace-intact (Negative) Urine Nitrate Positive H (Negative) Urine Bilirubin 1+ H (NEGATIVE) Ur Bilirubin Confirm Positive H (Negative) Urine Urobilinogen 4.0 H (0.2) E.U./dL Ur Leukocyte Esterase 1+ H (NEGATIVE) Urine RBC 0-1/hpf (0-5/HPF) Urine WBC 5-10/hpf H (0-5/HPF) Ur Squamous Epith Cells 1-5 /hpf (0-5/HPF) Urine Bacteria Few (2-10) H (None) Urine Mucus 2+ H (Negative) Ur Culture Indicated? Specimen cultured Vol Urine Centrifuged 10ml (spun) U Opiates 300ng/mL cut Negative (Negative) Ur Oxycodone Screen Negative (Negative) Urine Methadone Screen Negative (Negative) Ur Barbiturates Screen Negative (Negative) U Tricyclic Antidepress Negative (Negative) Ur Phencyclidine Scrn Negative (Negative) Ur Amphetamines Screen Positive H (Negative) U Methamphetamines Scrn Positive H (Negative) Ur MDMA Scrn (Ecstasy) Positive H (Negative) U Benzodiazepines Scrn Negative (Negative) Urine Cocaine Screen Positive H (Negative) U Marijuana (THC) Screen Negative (Negative) Urine Specific [place] TNP Ethyl Alcohol < 10 ( - 10) mg/dL Ur Creatinine TNP SARS-CoV-2 (PCR) (Negative) 08/05/23 08/05/23 Range/Units 00:41 02:30 WBC 12.8 H (4.5-11.0) X10^3/uL RBC 4.89 (4.5-5.9) X10^6/uL Hgb 15.3 (13.5-17.5) g/dL Hct 44.4 (41-53) % MCV 90.8 (80-100) fL MCH 31.4 (26-34) PG MCHC 34.6 (30-36) % RDW 13.9 (11.6-14.8) % Plt Count 206 (150-400) X10^3/uL Neut % (Auto) 69.0 (50-75) % Lymph % (Auto) 16.6 L (25-40) % [place] % (Auto) 11.8 (3-14) % Eos % (Auto) 1.7 L (2-4) % Baso % (Auto) 0.9 (0-2) % Neut # (Auto) 8900 H (3847-3944) /uL Lymph # (Auto) 2100 (3809-2834) /uL [place] # (Auto) 1500 H (0-900) /uL Eos # (Auto) 200 (0-450) /uL Baso # (Auto) 100 (0-100) /uL Sodium (137-145) mmol/L Potassium (3.4-5.1) mmol/L Chloride (98-107) mmol/L Carbon Dioxide (22-32) mmol/L BUN (9-20) mg/dL Creatinine (0.66-1.25) mg/dL Estimated GFR (>60) mL/min BUN/Creatinine Ratio (6-22) Glucose (70-100) mg/dL Calcium (8.4-10.2) mg/dL Total Bilirubin (0.2-1.3) mg/dL AST (17-59) IU/L ALT (<50) IU/L Alkaline Phosphatase (38-126) U/L Total Protein (6.3-8.2) g/dL Albumin (3.5-5.0) g/dL Globulin (1.7-4.1) g/dL Albumin/Globulin Ratio (1.0-2.8) TSH (0.47-4.68) uIU/mL Urine Color Urine Appearance Urine pH (4.5-8.0) Ur Specific [place] (1.000-1.035) Urine Protein (Negative) Urine Glucose (UA) (Negative) g/dL Urine Ketones (NEGATIVE) Urine Occult Blood (Negative) Urine Nitrate (Negative) Urine Bilirubin (NEGATIVE) Ur Bilirubin Confirm (Negative) Urine Urobilinogen (0.2) E.U./dL Ur Leukocyte Esterase (NEGATIVE) Urine RBC (0-5/HPF) Urine WBC (0-5/HPF) Ur Squamous Epith Cells (0-5/HPF) Urine Bacteria (None) Urine Mucus (Negative) Ur Culture Indicated? Vol Urine Centrifuged U Opiates 300ng/mL cut (Negative) Ur Oxycodone Screen (Negative) Urine Methadone Screen (Negative) Ur Barbiturates Screen (Negative) U Tricyclic Antidepress (Negative) Ur Phencyclidine Scrn (Negative) Ur Amphetamines Screen (Negative) U Methamphetamines Scrn (Negative) Ur MDMA Scrn (Ecstasy) (Negative) U Benzodiazepines Scrn (Negative) Urine Cocaine Screen (Negative) U Marijuana (THC) Screen (Negative) Urine Specific [place] Ethyl Alcohol ( - 10) mg/dL Ur Creatinine SARS-CoV-2 (PCR) Negative (Negative) MDM Narrative Medical decision making narrative: CC: Increasing paranoia Complicating co-morbidities: Known schizophrenia, on injectable Abilify, increasing police interactions and brought in by police today with concerns for declining mental health over the past weeks Data collected from: patient, police affidavit Medical records reviewed: [facility] records are reviewed. Recent upper GI bleed with endoscopy and blood transfusions Differential considered: Worsening schizophrenia, polysubstance use, doubt viral syndrome or acute bacterial infection Exam documented above, pertinent findings include: Patient is somewhat disheveled, flat affect, significant delusional paranoid complaint Lab Test results independently reviewed as above. Pertinent findings: CBC shows mild leukocytosis at 12.8 without anemia. Chemistries are reassuring with appropriate renal function. TSH is unremarkable Urine has significant abnormalities including being quite concentrated. It will be cultured but I suspect that this is more concentration than infection Urine drug screen is positive for methamphetamine, MDMA, cocaine Alcohol level is undetectable Independently reviewed EKG: Sinus rhythm at a rate of 93. QTC is currently for 74 Consultations: DCR, 225am Discussed with Guero Ward and will pass to the oncoming 5am DCR Treatments: Patient has declined any medications at this time is moderately cooperative Re-evaluations: Discussion: 32-year-old gentleman with a history of schizophrenia with reported worsening psychiatric symptoms per police contact. Patient is significantly paranoid and delusional. He is on medications as prescribed, long-acting injectable Abilify. Urine does show methamphetamine cocaine and MDMA. At this point I think he is grave danger to self with escalating paranoia. Will ask for DCR evaluation. <Virginia Patrick, DO - Last Filed: 08/05/23 11:29> Lab Data Labs: Lab Results 08/04/23 08/04/23 08/04/23 Range/Units 23:35 23:35 23:45 WBC (4.5-11.0) X10^3/uL RBC (4.5-5.9) X10^6/uL Hgb (13.5-17.5) g/dL Hct (41-53) % MCV (80-100) fL MCH (26-34) PG MCHC (30-36) % RDW (11.6-14.8) % Plt Count (150-400) X10^3/uL Neut % (Auto) (50-75) % Lymph % (Auto) (25-40) % [place] % (Auto) (3-14) % Eos % (Auto) (2-4) % Baso % (Auto) (0-2) % Neut # (Auto) (4326-9198) /uL Lymph # (Auto) (5801-4345) /uL [place] # (Auto) (0-900) /uL Eos # (Auto) (0-450) /uL Baso # (Auto) (0-100) /uL Sodium 137 (137-145) mmol/L Potassium 4.0 (3.4-5.1) mmol/L Chloride 106 (98-107) mmol/L Carbon Dioxide 26 (22-32) mmol/L BUN 14 (9-20) mg/dL Creatinine 0.43 L (0.66-1.25) mg/dL Estimated GFR > 60 (>60) mL/min BUN/Creatinine Ratio 32.6 H (6-22) Glucose 98 (70-100) mg/dL Calcium 8.9 (8.4-10.2) mg/dL Total Bilirubin 1.3 (0.2-1.3) mg/dL AST 84 H (17-59) IU/L ALT 43 (<50) IU/L Alkaline Phosphatase 153 H (38-126) U/L Total Protein 7.6 (6.3-8.2) g/dL Albumin 3.8 (3.5-5.0) g/dL Globulin 3.8 (1.7-4.1) g/dL Albumin/Globulin Ratio 1.0 (1.0-2.8) TSH 1.64 (0.47-4.68) uIU/mL Urine Color Yellow Urine Appearance Slightly cloudy Urine pH 6.0 TNP (4.5-8.0) Ur Specific [place] >=1.030 H (1.000-1.035) Urine Protein 1+ H (Negative) Urine Glucose (UA) Negative (Negative) g/dL Urine Ketones 1+ H (NEGATIVE) Urine Occult Blood Trace-intact (Negative) Urine Nitrate Positive H (Negative) Urine Bilirubin 1+ H (NEGATIVE) Ur Bilirubin Confirm Positive H (Negative) Urine Urobilinogen 4.0 H (0.2) E.U./dL Ur Leukocyte Esterase 1+ H (NEGATIVE) Urine RBC 0-1/hpf (0-5/HPF) Urine WBC 5-10/hpf H (0-5/HPF) Ur Squamous Epith Cells 1-5 /hpf (0-5/HPF) Urine Bacteria Few (2-10) H (None) Urine Mucus 2+ H (Negative) Ur Culture Indicated? Specimen cultured Vol Urine Centrifuged 10ml (spun) U Opiates 300ng/mL cut Negative (Negative) Ur Oxycodone Screen Negative (Negative) Urine Methadone Screen Negative (Negative) Ur Barbiturates Screen Negative (Negative) U Tricyclic Antidepress Negative (Negative) Ur Phencyclidine Scrn Negative (Negative) Ur Amphetamines Screen Positive H (Negative) U Methamphetamines Scrn Positive H (Negative) Ur MDMA Scrn (Ecstasy) Positive H (Negative) U Benzodiazepines Scrn Negative (Negative) Urine Cocaine Screen Positive H (Negative) U Marijuana (THC) Screen Negative (Negative) Urine Specific [place] TNP Ethyl Alcohol < 10 ( - 10) mg/dL Ur Creatinine TNP SARS-CoV-2 (PCR) (Negative) 08/05/23 08/05/23 Range/Units 00:41 02:30 WBC 12.8 H (4.5-11.0) X10^3/uL RBC 4.89 (4.5-5.9) X10^6/uL Hgb 15.3 (13.5-17.5) g/dL Hct 44.4 (41-53) % MCV 90.8 (80-100) fL MCH 31.4 (26-34) PG MCHC 34.6 (30-36) % RDW 13.9 (11.6-14.8) % Plt Count 206 (150-400) X10^3/uL Neut % (Auto) 69.0 (50-75) % Lymph % (Auto) 16.6 L (25-40) % [place] % (Auto) 11.8 (3-14) % Eos % (Auto) 1.7 L (2-4) % Baso % (Auto) 0.9 (0-2) % Neut # (Auto) 8900 H (4683-3698) /uL Lymph # (Auto) 2100 (8033-9712) /uL [place] # (Auto) 1500 H (0-900) /uL Eos # (Auto) 200 (0-450) /uL Baso # (Auto) 100 (0-100) /uL Sodium (137-145) mmol/L Potassium (3.4-5.1) mmol/L Chloride (98-107) mmol/L Carbon Dioxide (22-32) mmol/L BUN (9-20) mg/dL Creatinine (0.66-1.25) mg/dL Estimated GFR (>60) mL/min BUN/Creatinine Ratio (6-22) Glucose (70-100) mg/dL Calcium (8.4-10.2) mg/dL Total Bilirubin (0.2-1.3) mg/dL AST (17-59) IU/L ALT (<50) IU/L Alkaline Phosphatase (38-126) U/L Total Protein (6.3-8.2) g/dL Albumin (3.5-5.0) g/dL Globulin (1.7-4.1) g/dL Albumin/Globulin Ratio (1.0-2.8) TSH (0.47-4.68) uIU/mL Urine Color Urine Appearance Urine pH (4.5-8.0) Ur Specific [place] (1.000-1.035) Urine Protein (Negative) Urine Glucose (UA) (Negative) g/dL Urine Ketones (NEGATIVE) Urine Occult Blood (Negative) Urine Nitrate (Negative) Urine Bilirubin (NEGATIVE) Ur Bilirubin Confirm (Negative) Urine Urobilinogen (0.2) E.U./dL Ur Leukocyte Esterase (NEGATIVE) Urine RBC (0-5/HPF) Urine WBC (0-5/HPF) Ur Squamous Epith Cells (0-5/HPF) Urine Bacteria (None) Urine Mucus (Negative) Ur Culture Indicated? Vol Urine Centrifuged U Opiates 300ng/mL cut (Negative) Ur Oxycodone Screen (Negative) Urine Methadone Screen (Negative) Ur Barbiturates Screen (Negative) U Tricyclic Antidepress (Negative) Ur Phencyclidine Scrn (Negative) Ur Amphetamines Screen (Negative) U Methamphetamines Scrn (Negative) Ur MDMA Scrn (Ecstasy) (Negative) U Benzodiazepines Scrn (Negative) Urine Cocaine Screen (Negative) U Marijuana (THC) Screen (Negative) Urine Specific [place] Ethyl Alcohol ( - 10) mg/dL Ur Creatinine SARS-CoV-2 (PCR) Negative (Negative) MDM Narrative Medical decision making narrative: CC: Increasing paranoia Complicating co-morbidities: Known schizophrenia, on injectable Abilify, increasing police interactions and brought in by police today with concerns for declining mental health over the past weeks Data collected from: patient, police affidavit Medical records reviewed: [facility] records are reviewed. Recent upper GI bleed with endoscopy and blood transfusions Differential considered: Worsening schizophrenia, polysubstance use, doubt viral syndrome or acute bacterial infection Exam documented above, pertinent findings include: Patient is somewhat disheveled, flat affect, significant delusional paranoid complaint Lab Test results independently reviewed as above. Pertinent findings: CBC shows mild leukocytosis at 12.8 without anemia. Chemistries are reassuring with appropriate renal function. TSH is unremarkable Urine has significant abnormalities including being quite concentrated. It will be cultured but I suspect that this is more concentration than infection Urine drug screen is positive for methamphetamine, MDMA, cocaine Alcohol level is undetectable Independently reviewed EKG: Sinus rhythm at a rate of 93. QTC is currently for 74 Consultations: DCR, 225am Discussed with Guero Ward and will pass to the oncoming 5am DCR Treatments: Patient has declined any medications at this time is moderately cooperative Re-evaluations: Discussion: 32-year-old gentleman with a history of schizophrenia with reported worsening psychiatric symptoms per police contact. Patient is significantly paranoid and delusional. He is on medications as prescribed, long-acting injectable Abilify. Urine does show methamphetamine cocaine and MDMA. At this point I think he is grave danger to self with escalating paranoia. Will ask for DCR evaluation. Dr. Patrick-patient seen evaluated by myself. DCR evaluated patient. She suspect symptoms are due to increased drug use. He is followed closely outpatient with [facility]. At this time difficult to detain him however she does recommend that as he has increased visits to the emergency department the DCR should be re-contacted each time. Not suicidal or homicidal. Taxi cab called for patient. <Shima Zaragoza DO - Last Filed: 08/08/23 04:55> Lab Data Labs: Lab Results 08/04/23 08/04/23 08/04/23 Range/Units 23:35 23:35 23:45 WBC (4.5-11.0) X10^3/uL RBC (4.5-5.9) X10^6/uL Hgb (13.5-17.5) g/dL Hct (41-53) % MCV (80-100) fL MCH (26-34) PG MCHC (30-36) % RDW (11.6-14.8) % Plt Count (150-400) X10^3/uL Neut % (Auto) (50-75) % Lymph % (Auto) (25-40) % [place] % (Auto) (3-14) % Eos % (Auto) (2-4) % Baso % (Auto) (0-2) % Neut # (Auto) (7332-5629) /uL Lymph # (Auto) (3048-8752) /uL [place] # (Auto) (0-900) /uL Eos # (Auto) (0-450) /uL Baso # (Auto) (0-100) /uL Sodium 137 (137-145) mmol/L Potassium 4.0 (3.4-5.1) mmol/L Chloride 106 (98-107) mmol/L Carbon Dioxide 26 (22-32) mmol/L BUN 14 (9-20) mg/dL Creatinine 0.43 L (0.66-1.25) mg/dL Estimated GFR > 60 (>60) mL/min BUN/Creatinine Ratio 32.6 H (6-22) Glucose 98 (70-100) mg/dL Calcium 8.9 (8.4-10.2) mg/dL Total Bilirubin 1.3 (0.2-1.3) mg/dL AST 84 H (17-59) IU/L ALT 43 (<50) IU/L Alkaline Phosphatase 153 H (38-126) U/L Total Protein 7.6 (6.3-8.2) g/dL Albumin 3.8 (3.5-5.0) g/dL Globulin 3.8 (1.7-4.1) g/dL Albumin/Globulin Ratio 1.0 (1.0-2.8) TSH 1.64 (0.47-4.68) uIU/mL Urine Color Yellow Urine Appearance Slightly cloudy Urine pH 6.0 TNP (4.5-8.0) Ur Specific [place] >=1.030 H (1.000-1.035) Urine Protein 1+ H (Negative) Urine Glucose (UA) Negative (Negative) g/dL Urine Ketones 1+ H (NEGATIVE) Urine Occult Blood Trace-intact (Negative) Urine Nitrate Positive H (Negative) Urine Bilirubin 1+ H (NEGATIVE) Ur Bilirubin Confirm Positive H (Negative) Urine Urobilinogen 4.0 H (0.2) E.U./dL Ur Leukocyte Esterase 1+ H (NEGATIVE) Urine RBC 0-1/hpf (0-5/HPF) Urine WBC 5-10/hpf H (0-5/HPF) Ur Squamous Epith Cells 1-5 /hpf (0-5/HPF) Urine Bacteria Few (2-10) H (None) Urine Mucus 2+ H (Negative) Ur Culture Indicated? Specimen cultured Vol Urine Centrifuged 10ml (spun) U Opiates 300ng/mL cut Negative (Negative) Ur Oxycodone Screen Negative (Negative) Urine Methadone Screen Negative (Negative) Ur Barbiturates Screen Negative (Negative) U Tricyclic Antidepress Negative (Negative) Ur Phencyclidine Scrn Negative (Negative) Ur Amphetamines Screen Positive H (Negative) U Methamphetamines Scrn Positive H (Negative) Ur MDMA Scrn (Ecstasy) Positive H (Negative) U Benzodiazepines Scrn Negative (Negative) Urine Cocaine Screen Positive H (Negative) U Marijuana (THC) Screen Negative (Negative) Urine Specific [place] TNP Ethyl Alcohol < 10 ( - 10) mg/dL Ur Creatinine TNP SARS-CoV-2 (PCR) (Negative) 08/05/23 08/05/23 Range/Units 00:41 02:30 WBC 12.8 H (4.5-11.0) X10^3/uL RBC 4.89 (4.5-5.9) X10^6/uL Hgb 15.3 (13.5-17.5) g/dL Hct 44.4 (41-53) % MCV 90.8 (80-100) fL MCH 31.4 (26-34) PG MCHC 34.6 (30-36) % RDW 13.9 (11.6-14.8) % Plt Count 206 (150-400) X10^3/uL Neut % (Auto) 69.0 (50-75) % Lymph % (Auto) 16.6 L (25-40) % [place] % (Auto) 11.8 (3-14) % Eos % (Auto) 1.7 L (2-4) % Baso % (Auto) 0.9 (0-2) % Neut # (Auto) 8900 H (0548-5798) /uL Lymph # (Auto) 2100 (4490-6649) /uL [place] # (Auto) 1500 H (0-900) /uL Eos # (Auto) 200 (0-450) /uL Baso # (Auto) 100 (0-100) /uL Sodium (137-145) mmol/L Potassium (3.4-5.1) mmol/L Chloride (98-107) mmol/L Carbon Dioxide (22-32) mmol/L BUN (9-20) mg/dL Creatinine (0.66-1.25) mg/dL Estimated GFR (>60) mL/min BUN/Creatinine Ratio (6-22) Glucose (70-100) mg/dL Calcium (8.4-10.2) mg/dL Total Bilirubin (0.2-1.3) mg/dL AST (17-59) IU/L ALT (<50) IU/L Alkaline Phosphatase (38-126) U/L Total Protein (6.3-8.2) g/dL Albumin (3.5-5.0) g/dL Globulin (1.7-4.1) g/dL Albumin/Globulin Ratio (1.0-2.8) TSH (0.47-4.68) uIU/mL Urine Color Urine Appearance Urine pH (4.5-8.0) Ur Specific [place] (1.000-1.035) Urine Protein (Negative) Urine Glucose (UA) (Negative) g/dL Urine Ketones (NEGATIVE) Urine Occult Blood (Negative) Urine Nitrate (Negative) Urine Bilirubin (NEGATIVE) Ur Bilirubin Confirm (Negative) Urine Urobilinogen (0.2) E.U./dL Ur Leukocyte Esterase (NEGATIVE) Urine RBC (0-5/HPF) Urine WBC (0-5/HPF) Ur Squamous Epith Cells (0-5/HPF) Urine Bacteria (None) Urine Mucus (Negative) Ur Culture Indicated? Vol Urine Centrifuged U Opiates 300ng/mL cut (Negative) Ur Oxycodone Screen (Negative) Urine Methadone Screen (Negative) Ur Barbiturates Screen (Negative) U Tricyclic Antidepress (Negative) Ur Phencyclidine Scrn (Negative) Ur Amphetamines Screen (Negative) U Methamphetamines Scrn (Negative) Ur MDMA Scrn (Ecstasy) (Negative) U Benzodiazepines Scrn (Negative) Urine Cocaine Screen (Negative) U Marijuana (THC) Screen (Negative) Urine Specific [place] Ethyl Alcohol ( - 10) mg/dL Ur Creatinine SARS-CoV-2 (PCR) Negative (Negative) MDM Narrative Medical decision making narrative: CC: Increasing paranoia Complicating co-morbidities: Known schizophrenia, on injectable Abilify, increasing police interactions and brought in by police today with concerns for declining mental health over the past weeks Data collected from: patient, police affidavit Medical records reviewed: [facility] records are reviewed. Recent upper GI bleed with endoscopy and blood transfusions Differential considered: Worsening schizophrenia, polysubstance use, doubt viral syndrome or acute bacterial infection Exam documented above, pertinent findings include: Patient is somewhat disheveled, flat affect, significant delusional paranoid complaint Lab Test results independently reviewed as above. Pertinent findings: CBC shows mild leukocytosis at 12.8 without anemia. Chemistries are reassuring with appropriate renal function. TSH is unremarkable Urine has significant abnormalities including being quite concentrated. It will be cultured but I suspect that this is more concentration than infection Urine drug screen is positive for methamphetamine, MDMA, cocaine Alcohol level is undetectable Independently reviewed EKG: Sinus rhythm at a rate of 93. QTC is currently for 74 Consultations: DCR, 225am Discussed with Guero Ward and will pass to the oncoming 5am DCR Treatments: Patient has declined any medications at this time is moderately cooperative Re-evaluations: Discussion: 32-year-old gentleman with a history of schizophrenia with reported worsening psychiatric symptoms per police contact. Patient is significantly paranoid and delusional. He is on medications as prescribed, long-acting injectable Abilify. Urine does show methamphetamine cocaine and MDMA. At this point I think he is grave danger to self with escalating paranoia. Will ask for DCR evaluation. Dr. Patrick-patient seen evaluated by myself. DCR evaluated patient. She suspect symptoms are due to increased drug use. He is followed closely outpatient with the [facility] team. At this time difficult to detain him however she does recommend that as he has increased visits to the emergency department the DCR should be re-contacted each time. Not suicidal or homicidal. Taxi cab called for patient. Dr. Zaragoza 08/07/23 patient's urine culture came back positive for staph pansensitive. Plan for Macrobid 100 mg p.o. b.i.d. x5 days 10. Tablets. Nursing to reach out to patient for pharmacy of choice Discharge Plan Departure Patient Disposition: Home Clinical Impression: Gravely disabled, Paranoid delusion, Schizophrenia, Methamphetamine use, Cocaine use, Methylenedioxymethamphetamine (MDMA) user Instructions: DI for Substance Use Disorder, DI for Psychosis Activity Restrictions/Additional Instructions: *You have been diagnosed with psychosis *What to do: At this time strongly encourage you to get help with substance abuse. Please follow-up with [facility] team to help your symptoms *Continue to take medications as directed *Follow up with your primary care provider in 2-3 days or call [phone] *Return to ER if you should have any new, worsening or concerning symptoms Prescriptions: No Action Abilify Maintena 400 mg suspension,extended rel syring 400 mg IM QMONTH Referrals: Chantale Martin MD [Primary Care Provider] - Stand Alone Forms: Patient Portal/API
[2023-08-04 23:52] LABS: Appearance Urine UA Slightly Cloudy; Color Urine UA Yellow; Protein Urine UA 1+ (Negative); Specific Gravity Urine UA >=1.030 (1.000-1.035)
[2023-08-04 23:53] LABS: Bilirubin Urine UA 1+ (NEGATIVE); Glucose Urine UA NEGATIVE (Negative); Ketones Urine UA 1+ (NEGATIVE); Leukocyte Esterase Urine UA 1+ (NEGATIVE); Nitrite Urine UA POSITIVE (Negative); Occult Blood Urine UA TRACE-INTACT (Negative)
[2023-08-05] LABS: Ictotest Urine Positive (Negative); RBC Urine 0-1/HPF (0-5/HPF); Urine Volume 10mL (spun)
[2023-08-05 00:01] LABS: Bacteria Urine Few (2-10); Culture Indicated Urine Specimen Cultured; Mucus Urine 2+ (Negative); Squamous Epithelial Cell Urine 1-5 /HPF (0-5/HPF); WBC Urine 5-10/HPF (0-5/HPF)
[2023-08-05 00:02] LABS: UR Morphine/Opiate cutoff 300 Negative (Negative); Urine Amphetamines Positive (Negative); Urine Barbiturates Negative (Negative); Urine Benzodiazepines Negative (Negative); Urine Cocaine Positive (Negative); Urine MDMA Positive (Negative); Urine Methadone Negative (Negative); Urine Methamphetamines Positive (Negative); Urine Oxycodone Negative (Negative); Urine Phencyclidine Negative (Negative); Urine Tetrahydrocannabinol Negative (Negative); Urine Tricyclic Antidepressant Negative (Negative)
[2023-08-05 00:19] LABS: Alanine Aminotransferase 43 IU/L (<50); Albumin 3.8 g/dL (3.5-5.0); Alkaline Phosphatase 153 U/L (38-126); Aspartate Aminotransferase 84 IU/L (17-59); BUN Creatinine Ratio 32.6 (6-22); Bilirubin Total 1.3 mg/dL (0.2-1.3); Blood Urea Nitrogen 14 mg/dL (9-20); Calcium 8.9 mg/dL (8.4-10.2); Carbon Dioxide 26 mmol/L (22-32); Chloride 106 mmol/L (98-107); Estimated Glomerular Filt Rate > 60 mL/min (>60); Ethanol (ETOH) < 10 mg/dL; Globulin 3.8 g/dL (1.7-4.1); Glucose 98 mg/dL (70-100); HEMOLYSIS 41 (0-50); Sodium 137 mmol/L (137-145); Total Protein 7.6 g/dL (6.3-8.2)
[2023-08-05 00:35] VITALS: BP 126/64; PULSE 94; RESP 20; TEMP 36.8; O2SAT 95
[2023-08-05 00:50] LABS: TSH w/ Reflex to FT4 1.64 uIU/mL (0.47-4.68)
--- NOTE | 2023-08-05 00:50 | PC.NURSE ---
Pt requested to take a shower. Pt in bathroom showering from [id number] - [id number]. Pt required repeated reminder to finish showering and did eventually come out dressed in paper scrubs. Pt clothes placed in a patient belonging bag. Pt reports gratitude for being allowed to shower and states that he has not showered in three weeks because they kept telling me the water didn't work. Pt informed that his care team is waiting for his labs to result and pt is in agreement with staying in the room and waiting.
[2023-08-05 00:53] LABS: Add Manual Diff / Slide Review NO; Basophils Absolute Auto 100 /uL (0-100); Basophils Percent Auto 0.9 % (0-2); Eosinophils Absolute Auto 200 /uL (0-450); Eosinophils Percent Auto 1.7 % (2-4); Hematocrit 44.4 % (41-53); Hemoglobin 15.3 g/dL (13.5-17.5); Lymphocytes Absolute Auto 2100 /uL (1100-4500); Lymphocytes Percent Auto 16.6 % (25-40); Mean Corpuscular HGB Conc 34.6 % (30-36); Mean Corpuscular Hemoglobin 31.4 PG (26-34); Mean Corpuscular Volume 90.8 fL (80-100); Monocytes Absolute Auto 1500 /uL (0-900); Monocytes Percent Auto 11.8 % (3-14); Neutrophils Absolute Auto 8900 /uL (1500-7000); Platelet Count 206 X10^3/uL (150-400); Red Blood Cell Count 4.89 X10^6/uL (4.5-5.9); Red Cell Distribution Width 13.9 % (11.6-14.8); White Blood Cell Count 12.8 X10^3/uL (4.5-11.0)
--- NOTE | 2023-08-05 00:58 | PC.NURSE ---
0030: While getting an EKG and updated vital signs, pt said, That's not true. When asked what pt meant, he responded stating that we (this RN and the NEUROLOGY STROKE PHYSICIAN) were talking bout him when we hadn't said anything. This RN reassured pt that the staff in the room was there to provide care for him and that he is in a safe environment. Pt is anxious but verbalizes an understanding of this statement and begins texting on his phone but continues to follow directions and cooperate with staff.
--- NOTE | 2023-08-05 01:11 | PC.NURSE ---
This RN enters room and offers to dim light to allow pt to sleep. While covering his eyes with a pillow, pt responds by stating, I just want whoever is in the room with us to go away. This RN attempts to reassure pt that at this moment that only this /rn is in the room with him. Pt responds, yeah right, but states that he would like the lights dimmed. This RN offered pt medication to help with his anxiety but pt denies offer.
[2023-08-05 02:50] LABS: COVID19 -Nasal RAPID Negative (Negative)
--- NOTE | 2023-08-05 06:34 | PC.NURSE ---
Pt woke up suddenly reporting a R sided leg cramp. Pt followed instructions on how to stretch his leg and the cramping resolved. Pt updated on plan to be evaluated by DCR and he is in agreement. Pt provided with bottled water and allows RN to get vital signs.
[2023-08-05 06:36] VITALS: BP 119/58; PULSE 76; RESP 18; O2SAT 96
--- NOTE | 2023-08-05 08:07 | PC.NURSE ---
Argenis Vallejo from [facility], [facility] in room .
[2023-08-05 09:15] VITALS: BP 120/66; PULSE 70; O2SAT 98
== END 2023-08-05 09:17 | disposition home or self-care (01) ==
PROVIDERS: Emergency Medicine; Emergency Provider Emergency Medicine; PCP Family Medicine
DX: F20.0 Paranoid schizophrenia (principal); F15.90 Other stimulant use, unspecified, uncomplicated; F14.90 Cocaine use, unspecified, uncomplicated
CPT/HCPCS: 36415; 80053; 80305; 80320; 81001; 84443; 85025; 87077; 87086; 87186; 87635; 93005; 99283

== ENCOUNTER 2023-12-11 02:08 | Emergency (ER) | payer MEDICARE, MEDICAID, SELFPAY ==
[2023-04-27 22:17] VITALS: BMI 32.1
[2023-12-11 02:15] VITALS: BP 137/84; PULSE 99; RESP 18; TEMP 36.8; O2SAT 93; BMI 31.3
--- NOTE | 2023-12-11 02:33 | ED.EXTPRO ---
HPI - Extremity Problem General Chief complaint: Extremity Problem,Nontraumatic Stated complaint: cellulitis left leg Time Seen by Provider: 12/11/23 02:23 Source: patient Mode of arrival: Ambulatory History of Present Illness HPI Narrative: 33yoM with PMH IVDA, endocarditis presents for worsening LLE cellulitis x 3 days. Patient states he thinks he may have scratched his ankle while working on cars. Patient states redness started in his ankle and has spread, now going up to his groin. Denies fevers. Similar thing happened in April 2023 diagnosed as cellulitis. Patient admitted, left AMA on day 3. Related Data Home Medications Medication Instructions Recorded Confirmed aripiprazole 400 mg suspension, 400 mg IM QMONTH 06/11/19 04/28/23 extended rel.intramuscular syringe (Jeniffer Cisneros) Previous Rx's Medication Instructions Recorded sulfamethoxazole 800 1 tab PO Q12H #14 tabs 12/11/23 mg-trimethoprim 160 mg tablet Allergies Allergy/AdvReac Type Severity Reaction Status Date / Time No Known Drug Allergies Allergy Verified 08/04/23 20:18 Patient History Medical History (Updated 12/11/23 @ 03:45 by Shima Edwards MD) Schizophrenia Polysubstance use disorder Endocarditis Social History household members: family Smoking Status: Current every day smoker alcohol intake: former Smoking Status: Current every day smoker tobacco type: cigarettes and vaping alcohol intake frequency: 0-2 drinks per day Substance Use Type: heroin, opiates and methamphetamine Exam Initial Vital Signs Initial Vital Signs: Vital Signs Temperature 98.3 F 12/11/23 02:15 Pulse Rate 99 H 12/11/23 02:15 Respiratory Rate 18 12/11/23 02:15 Blood Pressure 137/84 12/11/23 02:15 Pulse Oximetry 93 12/11/23 02:15 Oxygen Delivery Method Room Air 12/11/23 02:15 Const: Awake, alert, appears chronically unwell, no acute distress Cardiac: regular rate, regular rhythm RESP: unlabored, clear bilaterally, no wheezing MSK: Atraumatic, full range of motion, significant swelling LLE Skin: extensive cellulitic changes LLE from foot to groin Neuro: AO x3, CN II-XII grossly intact, moves all extremities Course Orders Ordered: ED Orders 12/11/23 02:31 Urine Drug Screen, Rapid Stat 12/11/23 02:32 UA Complete [Urinalysis and Microscopic] Stat 12/11/23 03:00 CBC Auto Diff [Complete Blood Count AUTO DIFF] Stat CMP [Comprehensive Metabolic Panel] Stat Lactate (Lactic Acid) Stat 12/11/23 03:27 Blood Culture Stat Vancomycin HCl/Dextrose (Vancomycin) 1,500 mg in 300 mls @ 200 mls/hr IV NOW ONE Stop: 12/11/23 04:01 Discontinued Medications Sodium Chloride (Normal Saline 0.9%) 1,000 mls @ 1,000 mls/hr IV BOLUS ONE Stop: 12/11/23 03:30 Last Admin: 12/11/23 03:19 Dose: 1,000 mls/hr Ceftriaxone Sodium 2,000 mg/ (Sodium Chloride) 100 mls @ 200 mls/hr IV NOW ONE Stop: 12/11/23 02:33 Last Admin: 12/11/23 03:25 Dose: 200 mls/hr Vital Signs Vital signs: Vital Signs - 8 hr 12/11/23 02:15 Temperature 98.3 F Pulse Rate 99 H Respiratory Rate 18 Blood Pressure 137/84 Pulse Oximetry 93 Oxygen Delivery Method Room Air MDM - Extremity (Nontraumatic) Differential Diagnosis Differential diagnosis: Likely gout, cellulitis and lower extremity edema Lab Data 12/11/23 03:00 12/11/23 03:00 Labs: Lab Results 12/11/23 Range/Units 03:00 WBC 2.6 L (4.5-11.0) X10^3/uL RBC 4.05 L (4.5-5.9) X10^6/uL Hgb 12.2 L (13.5-17.5) g/dL Hct 36.3 L (41-53) % MCV 89.6 (80-100) fL MCH 30.2 (26-34) PG MCHC 33.7 (30-36) % RDW 16.3 H (11.6-14.8) % Plt Count 49 L (150-400) X10^3/uL Neut % (Auto) 55.7 (50-75) % Lymph % (Auto) 30.4 (25-40) % [place] % (Auto) 12.4 (3-14) % Eos % (Auto) 0.2 L (2-4) % Baso % (Auto) 1.3 (0-2) % Neut # (Auto) 1400 L (1671-5779) /uL Lymph # (Auto) 800 L (7837-4691) /uL [place] # (Auto) 300 (0-900) /uL Eos # (Auto) 0 (0-450) /uL Baso # (Auto) 0 (0-100) /uL Sodium 141 (137-145) mmol/L Potassium 3.5 (3.4-5.1) mmol/L Chloride 101 (98-107) mmol/L Carbon Dioxide 31 (22-32) mmol/L BUN 11 (9-20) mg/dL Creatinine 0.68 (0.66-1.25) mg/dL Estimated GFR > 60 (>60) mL/min BUN/Creatinine Ratio 16.2 (6-22) Glucose 136 H (70-100) mg/dL Lactate 1.2 (0.7-2.1) mmol/L Calcium 8.9 (8.4-10.2) mg/dL Total Bilirubin 1.2 (0.2-1.3) mg/dL AST 36 (17-59) IU/L ALT 24 (<50) IU/L Alkaline Phosphatase 120 (38-126) U/L Total Protein 7.6 (6.3-8.2) g/dL Albumin 3.9 (3.5-5.0) g/dL Globulin 3.7 (1.7-4.1) g/dL Albumin/Globulin Ratio 1.1 (1.0-2.8) MDM Narrative Medical decision making narrative: Recurrent cellulitis of lower extremity. Very extensive. Up to groin. Afebrile. in Apr 2023 negative for MRSA. Labs reviewed, pancytopenia as previously seen. Patient HIV negative then. Other labs WNL. Patient recommended admission for further treatment, however he declined stating that he had a family reunion this afternoon. Patient advised on risks of leaving. Patient stated understanding of risks and elected to leave anyway. Discharge Plan Departure Patient Disposition: Left Against Medical Advice Clinical Impression: Cellulitis, Pancytopenia, Left against medical advice Instructions: DI for Cellulitis -- Adult Activity Restrictions/Additional Instructions: Your laboratory work today showed low cell counts, which has been seen in the past. I recommended admission for more antibiotics, however you declined. You are at high risk of worsening infection, sepsis, and even loss of your leg if this is not treated. Bactrim has been sent to the [facility] in [place], this antibiotic appears to have helped you in the past. If this does not get better your should come back to the emergency department for more treatment. Prescriptions: New sulfamethoxazole-trimethoprim 800-160 mg tablet 1 tab PO Q12H Qty: 14 0RF No Action Abilify Maintena 400 mg suspension,extended rel syring 400 mg IM QMONTH Referrals: Chantale Martin MD [Primary Care Provider] - Stand Alone Forms: Patient Portal/API, Against Medical Advice
[2023-12-11 03:16] LABS: Add Manual Diff / Slide Review NO; Basophils Absolute Auto 0 /uL (0-100); Basophils Percent Auto 1.3 % (0-2); Eosinophils Absolute Auto 0 /uL (0-450); Eosinophils Percent Auto 0.2 % (2-4); Hematocrit 36.3 % (41-53); Hemoglobin 12.2 g/dL (13.5-17.5); Lymphocytes Absolute Auto 800 /uL (1100-4500); Lymphocytes Percent Auto 30.4 % (25-40); Mean Corpuscular HGB Conc 33.7 % (30-36); Mean Corpuscular Hemoglobin 30.2 PG (26-34); Mean Corpuscular Volume 89.6 fL (80-100); Monocytes Absolute Auto 300 /uL (0-900); Monocytes Percent Auto 12.4 % (3-14); Neutrophils Absolute Auto 1400 /uL (1500-7000); Neutrophils Percent Auto 55.7 % (50-75); Platelet Count 49 X10^3/uL (150-400); Red Blood Cell Count 4.05 X10^6/uL (4.5-5.9); Red Cell Distribution Width 16.3 % (11.6-14.8); White Blood Cell Count 2.6 X10^3/uL (4.5-11.0)
[2023-12-11] MEDS: SODIUM CHLORIDE 0.9% 1,000 ML 1000 ML IV (03:19)
[2023-12-11 03:24] LABS: Alanine Aminotransferase 24 IU/L (<50); Albumin 3.9 g/dL (3.5-5.0); Albumin Globulin Ratio 1.1 (1.0-2.8); Alkaline Phosphatase 120 U/L (38-126); Aspartate Aminotransferase 36 IU/L (17-59); BUN Creatinine Ratio 16.2 (6-22); Bilirubin Total 1.2 mg/dL (0.2-1.3); Blood Urea Nitrogen 11 mg/dL (9-20); Calcium 8.9 mg/dL (8.4-10.2); Carbon Dioxide 31 mmol/L (22-32); Chloride 101 mmol/L (98-107); Estimated Glomerular Filt Rate > 60 mL/min (>60); Globulin 3.7 g/dL (1.7-4.1); Glucose 136 mg/dL (70-100); HEMOLYSIS < 15 (0-50); Lactate (Lactic Acid) 1.2 mmol/L (0.7-2.1); Potassium 3.5 mmol/L (3.4-5.1); Sodium 141 mmol/L (137-145); Total Protein 7.6 g/dL (6.3-8.2)
[2023-12-11] MEDS: cefTRIAXone 2,000 MG in SODIUM CHLORIDE 0.9% 100 ML 200 MG IV (03:25)
[2023-12-11] MEDS: VANCOMYCIN 1,500 MG/300 ML PIGGYBACK 200 MG IV (03:58)
[2023-12-11 04:07] VITALS: BP 119/67; PULSE 93; O2SAT 91
[2023-12-11 04:30] VITALS: BP 119/64; PULSE 92; O2SAT 91
[2023-12-11 05:00] VITALS: BP 118/56; PULSE 93; O2SAT 92
[2023-12-11 05:29] VITALS: PULSE 99; O2SAT 92
[2023-12-11 05:30] VITALS: BP 123/59
== END 2023-12-11 05:37 | disposition left against medical advice (07) ==
PROVIDERS: Emergency Provider Emergency Medicine; PCP Family Medicine
DX: L03.116 Cellulitis of left lower limb (principal); D61.818 Other pancytopenia
CPT/HCPCS: 36415; 80053; 83605; 85025; 87040; 96365; 96366; 96367; 99284; J0696

== ENCOUNTER 2024-06-19 23:27 | Emergency (ER) | payer MEDICARE, MEDICAID, SELFPAY ==
[2023-04-27 22:17] VITALS: BMI 32.1
[2024-06-19 23:37] VITALS: BP 139/71; PULSE 109; RESP 17; TEMP 37.4; O2SAT 100; BMI 34.2
[2024-06-20 02:28] LABS: Add Manual Diff / Slide Review NO; Alanine Aminotransferase 18 IU/L (<50); Albumin 2.8 g/dL (3.5-5.0); Albumin Globulin Ratio 0.9 (1.0-2.8); Alkaline Phosphatase 116 U/L (38-126); Aspartate Aminotransferase 33 IU/L (17-59); BUN Creatinine Ratio 22.6 (6-22); Basophils Absolute Auto 0 /uL (0-100); Basophils Percent Auto 0.6 % (0-2); Bilirubin Total 0.8 mg/dL (0.2-1.3); Blood Urea Nitrogen 14 mg/dL (9-20); Calcium 7.9 mg/dL (8.4-10.2); Carbon Dioxide 31 mmol/L (22-32); Chloride 103 mmol/L (98-107); Eosinophils Absolute Auto 0 /uL (0-450); Eosinophils Percent Auto 0.1 % (2-4); Estimated Glomerular Filt Rate > 60 mL/min (>60); Glucose 115 mg/dL (70-100); HEMOLYSIS < 15 (0-50); Lymphocytes Absolute Auto 600 /uL (1100-4500); Lymphocytes Percent Auto 24.1 % (25-40); Mean Corpuscular HGB Conc 33.5 % (30-36); Mean Corpuscular Hemoglobin 29.7 PG (26-34); Mean Corpuscular Volume 88.7 fL (80-100); Monocytes Absolute Auto 300 /uL (0-900); Neutrophils Absolute Auto 1600 /uL (1500-7000); Neutrophils Percent Auto 64.2 % (50-75); Platelet Count 57 X10^3/uL (150-400); Potassium 3.2 mmol/L (3.4-5.1); Red Blood Cell Count 2.21 X10^6/uL (4.5-5.9); Red Cell Distribution Width 15.2 % (11.6-14.8); Sodium 138 mmol/L (137-145); Total Protein 5.8 g/dL (6.3-8.2); White Blood Cell Count 2.5 X10^3/uL (4.5-11.0)
[2024-06-20 02:29] LABS: Hemoglobin 6.6 g/dL (13.5-17.5); Lactate (Lactic Acid) 0.9 mmol/L (0.7-2.1)
[2024-06-20 02:30] LABS: Hematocrit 19.6 % (41-53)
--- NOTE | 2024-06-20 02:31 | ED.EXTPRO ---
HPI - Extremity Problem General Chief complaint: Extremity Problem,Nontraumatic Stated complaint: cellulitus left leg Time Seen by Provider: 06/20/24 02:29 Source: patient Mode of arrival: Ambulatory History of Present Illness HPI Narrative: Patient a 33-year-old male history of cellulitis and polysubstance abuse pancytopenia presenting to day with cellulitis. He frequently gets lower extremity cellulitis and requires hospitalization. He says this time it is like he has been like this for 2-3 days. It is his whole leg from ankle up into his groin. Denies any testicular involvement or significant pain. Related Data Home Medications Medication Instructions Recorded Confirmed aripiprazole 400 mg suspension, 400 mg IM QMONTH 06/11/19 04/28/23 extended rel.intramuscular syringe (Jeniffer Cisneros) Previous Rx's Medication Instructions Recorded sulfamethoxazole 800 1 tab PO Q12H #14 tabs 12/11/23 mg-trimethoprim 160 mg tablet cefdinir 300 mg capsule 300 mg PO Q12H #20 caps 06/20/24 sulfamethoxazole 800 1 tab PO BID 10 days #20 tabs 06/20/24 mg-trimethoprim 160 mg tablet (Bactrim DS) Allergies Allergy/AdvReac Type Severity Reaction Status Date / Time No Known Drug Allergies Allergy Verified 08/04/23 20:18 Patient History Medical History (Updated 06/20/24 @ 02:44 by Virginia Patrick DO) Schizophrenia Polysubstance use disorder Endocarditis Social History household members: family Smoking Status: Current some day smoker alcohol intake: former Smoking Status: Current some day smoker tobacco type: cigarettes and vaping alcohol intake frequency: 0-2 drinks per day Exam Initial Vital Signs Initial Vital Signs: Vital Signs Temperature 99.3 F 06/19/24 23:37 Pulse Rate 109 H 06/19/24 23:37 Respiratory Rate 17 06/19/24 23:37 Blood Pressure 139/71 06/19/24 23:37 Pulse Oximetry 100 06/19/24 23:37 Oxygen Delivery Method Room Air 06/19/24 23:37 GENERAL: Alert pleasant 33-year-old male and in no acute distress. HEENT: Head atraumatic,EOMI, pupils reactive, face symmetric, moist mucous membranes CARDIOVASCULAR: Regular rate and rhythm without murmurs, rubs or gallops. RESPIRATORY: Breath sounds equal bilaterally, no wheezes rales or rhonchi. ABDOMEN: Soft, nontender. Normoactive bowel sounds all 4 quadrants. No guarding or rebound. EXTREMITIES: Normal range of motion, no clubbing or edema. Neurovascularly intact NEUROLOGICAL: Alert and oriented x4.Normal gait and speech. Cranial nerves II through XII grossly intact. SKIN: Significant erythema ankle into groin no testicle involvement Course Orders Ordered: ED Orders 06/20/24 02:05 Complete Blood Count AUTO DIFF Stat Comprehensive Metabolic Panel Stat Lactate (Lactic Acid) Stat 06/20/24 02:43 PRBC [Packed Cells] Stat Type and Screen Stat 06/20/24 02:50 Blood Culture Stat 06/20/24 03:02 Urine Drug Screen, Rapid Stat 06/20/24 03:05 Urinalysis and Microscopic Stat Discontinued Medications Ceftriaxone Sodium 1,000 mg/ (Sodium Chloride) 100 mls @ 200 mls/hr IV NOW ONE Stop: 06/20/24 02:30 Last Infusion: 06/20/24 03:30 Dose: Infused Documented By: Admin: 06/20/24 02:59 Dose: 200 mls/hr Documented By: Vancomycin HCl/Dextrose (Vancomycin) 2,000 mg in 400 mls @ 200 mls/hr IV NOW ONE Stop: 06/20/24 04:30 Last Infusion: 06/20/24 05:44 Dose: Infused Documented By: Admin: 06/20/24 03:35 Dose: 200 mls/hr Documented By: Vital Signs Vital signs: Vital Signs - 8 hr 06/19/24 23:37 06/20/24 03:31 06/20/24 06:04 Temperature 99.3 F Pulse Rate 109 H 72 Respiratory Rate 17 16 Blood Pressure 139/71 120/62 Pulse Oximetry 100 Oxygen Delivery Method Room Air Room Air MDM - Extremity (Nontraumatic) Lab Data 06/20/24 02:05 06/20/24 02:05 Labs: Lab Results 06/20/24 06/20/24 06/20/24 Range/Units 02:05 02:43 03:02 WBC 2.5 L (4.5-11.0) X10^3/uL RBC 2.21 L (4.5-5.9) X10^6/uL Hgb 6.6 L* (13.5-17.5) g/dL Hct 19.6 L* (41-53) % MCV 88.7 (80-100) fL MCH 29.7 (26-34) PG MCHC 33.5 (30-36) % RDW 15.2 H (11.6-14.8) % Plt Count 57 L (150-400) X10^3/uL Neut % (Auto) 64.2 (50-75) % Lymph % (Auto) 24.1 L (25-40) % [place] % (Auto) 11.0 (3-14) % Eos % (Auto) 0.1 L (2-4) % Baso % (Auto) 0.6 (0-2) % Neut # (Auto) 1600 (5965-1237) /uL Lymph # (Auto) 600 L (4634-3984) /uL [place] # (Auto) 300 (0-900) /uL Eos # (Auto) 0 (0-450) /uL Baso # (Auto) 0 (0-100) /uL Sodium 138 (137-145) mmol/L Potassium 3.2 L (3.4-5.1) mmol/L Chloride 103 (98-107) mmol/L Carbon Dioxide 31 (22-32) mmol/L BUN 14 (9-20) mg/dL Creatinine 0.62 L (0.66-1.25) mg/dL Estimated GFR > 60 (>60) mL/min BUN/Creatinine Ratio 22.6 H (6-22) Glucose 115 H (70-100) mg/dL Lactate 0.9 (0.7-2.1) mmol/L Calcium 7.9 L (8.4-10.2) mg/dL Total Bilirubin 0.8 (0.2-1.3) mg/dL AST 33 (17-59) IU/L ALT 18 (<50) IU/L Alkaline Phosphatase 116 (38-126) U/L Total Protein 5.8 L (6.3-8.2) g/dL Albumin 2.8 L (3.5-5.0) g/dL Globulin 3.0 (1.7-4.1) g/dL Albumin/Globulin Ratio 0.9 L (1.0-2.8) Urine Color Urine Appearance Ur Specific [place] (1.000-1.035) Urine Protein (Negative) Urine Glucose (UA) (Negative) g/dL Urine Ketones (NEGATIVE) Urine Occult Blood (Negative) Urine Nitrate (Negative) Urine Bilirubin (NEGATIVE) Urine Urobilinogen (0.2) E.U./dL Ur Leukocyte Esterase (NEGATIVE) Urine RBC (0-5/HPF) Urine WBC (0-5/HPF) Ur Squamous Epith Cells (0-5/HPF) Urine Bacteria (None) Urine Mucus (Negative) Ur Culture Indicated? Vol Urine Centrifuged U Opiates 300ng/mL cut Negative (Negative) Ur Oxycodone Screen Negative (Negative) Urine Methadone Screen Negative (Negative) Ur Barbiturates Screen Negative (Negative) U Tricyclic Antidepress Negative (Negative) Ur Phencyclidine Scrn Negative (Negative) Ur Amphetamines Screen Positive H (Negative) U Methamphetamines Scrn Positive H (Negative) Ur MDMA Scrn (Ecstasy) Positive H (Negative) U Benzodiazepines Scrn Negative (Negative) Urine Cocaine Screen Negative (Negative) U Marijuana (THC) Screen Negative (Negative) Urine pH Normal (Normal) Urine Specific [place] Normal (Normal) Ur Creatinine Normal (Normal) Blood Type A Positive Antibody Screen Negative Crossmatch See Detail 06/20/24 Range/Units 03:05 WBC (4.5-11.0) X10^3/uL RBC (4.5-5.9) X10^6/uL Hgb (13.5-17.5) g/dL Hct (41-53) % MCV (80-100) fL MCH (26-34) PG MCHC (30-36) % RDW (11.6-14.8) % Plt Count (150-400) X10^3/uL Neut % (Auto) (50-75) % Lymph % (Auto) (25-40) % [place] % (Auto) (3-14) % Eos % (Auto) (2-4) % Baso % (Auto) (0-2) % Neut # (Auto) (3347-8468) /uL Lymph # (Auto) (2878-0526) /uL [place] # (Auto) (0-900) /uL Eos # (Auto) (0-450) /uL Baso # (Auto) (0-100) /uL Sodium (137-145) mmol/L Potassium (3.4-5.1) mmol/L Chloride (98-107) mmol/L Carbon Dioxide (22-32) mmol/L BUN (9-20) mg/dL Creatinine (0.66-1.25) mg/dL Estimated GFR (>60) mL/min BUN/Creatinine Ratio (6-22) Glucose (70-100) mg/dL Lactate (0.7-2.1) mmol/L Calcium (8.4-10.2) mg/dL Total Bilirubin (0.2-1.3) mg/dL AST (17-59) IU/L ALT (<50) IU/L Alkaline Phosphatase (38-126) U/L Total Protein (6.3-8.2) g/dL Albumin (3.5-5.0) g/dL Globulin (1.7-4.1) g/dL Albumin/Globulin Ratio (1.0-2.8) Urine Color Yellow Urine Appearance Clear Ur Specific [place] >=1.030 H (1.000-1.035) Urine Protein Negative (Negative) Urine Glucose (UA) Negative (Negative) g/dL Urine Ketones Negative (NEGATIVE) Urine Occult Blood Negative (Negative) Urine Nitrate Negative (Negative) Urine Bilirubin Negative (NEGATIVE) Urine Urobilinogen 1.0 (0.2) E.U./dL Ur Leukocyte Esterase Negative (NEGATIVE) Urine RBC 0-1/hpf (0-5/HPF) Urine WBC 0-1/hpf (0-5/HPF) Ur Squamous Epith Cells 0-1 /hpf (0-5/HPF) Urine Bacteria Occasional (0-1) (None) Urine Mucus 1+ H (Negative) Ur Culture Indicated? Cult not indicated Vol Urine Centrifuged 10ml (spun) U Opiates 300ng/mL cut (Negative) Ur Oxycodone Screen (Negative) Urine Methadone Screen (Negative) Ur Barbiturates Screen (Negative) U Tricyclic Antidepress (Negative) Ur Phencyclidine Scrn (Negative) Ur Amphetamines Screen (Negative) U Methamphetamines Scrn (Negative) Ur MDMA Scrn (Ecstasy) (Negative) U Benzodiazepines Scrn (Negative) Urine Cocaine Screen (Negative) U Marijuana (THC) Screen (Negative) Urine pH 5.5 (Normal) Urine Specific [place] (Normal) Ur Creatinine (Normal) Blood Type Antibody Screen Crossmatch MDM Narrative Medical decision making narrative: MDM CC: Leg swelling and redness Complicating co-morbidities: Polysubstance abuse Data collected from: Patient Medical records reviewed: Previous admissions Differential considered: Cellulitis, DVT, necrotizing fasciitis Exam documented above, pertinent findings include: Significant swelling and erythema from hip swelling peripheral pulses intact Lab Test results independently reviewed as above. Pertinent findings: WBC 2.5 previously 2.6, hemoglobin 6.6 hematocrit 19.6 Sodium 138 potassium 3.2 chloride 103 carbon dioxide 31 BUN 14 creatinine 0.62 Lactate 0.9 Imaging studies independently reviewed: None Treatments: Rocephin vancomycin Re-evaluations: [ ] Discussion: 33-year-old male presenting today with recurrent left leg cellulitis. He frequently requires hospitalization. He does have a history of pancytopenia blood work today does show worsening anemia today with a hemoglobin less than 7. He was no active bleeding and hemodynamically stable. He was current infection with significant whole left leg cellulitis swollen tender to touch. Vitals are stable he overall appears surprisingly well and nontoxic. Patient is well aware that he needs to stay in the hospital for further blood work blood transfusion and IV antibiotics. However he was quite adamant that he must go to his court appearance at 8:30 a.m. in the morning. He was strongly encouraged to return after his cord appearance for admission. He understands this, i will also give him a prescription for antibiotics. Patient wants to stay in the hospital but must go to court I do fully he will come back. Did not get blood transfusion prior to leaving. The patient is clinically sober, free from distracting injury, appears to have intact insight, judgment and reason. Does not meet criteria for involuntary hospitalization. Patient has the capacity to make decisions. The patient is also not under any duress to leave the hospital. In this scenario, it would be battery to subject the patient to treatment against his/her will. I have voiced my concerns for the patient's health given that a full evaluation and treatment had not occurred. I have discussed the need for continued evaluation to determine if there symptoms are caused by a condition that present risk of or morbidity. Risk including but not limited to , permanent disability, prolonged hospitalization, prolonged illness, were discussed. I tried offering alternative options in hopes that the patient might be amenable to partial evaluation and treatment which would be medically beneficial to the patient, though the patient declined my options and insisted on leaving. Because I have been unable to convince the patient to stay I answered all of their questions about the condition and ask them to return to the ED as soon as possible to complete their evaluation, especially if their symptoms worsen or do not improve. I emphasized that leaving against medical advice did not preclude returning here for further evaluation. I asked the patient to return if they change their mind about the further evaluation and treatment. I strongly encouraged the patient to return to this emergency department or any emergency department at any time, particularly with worsening symptoms. Discharge Plan Departure Patient Disposition: Left Against Medical Advice Clinical Impression: Cellulitis Instructions: DI for Cellulitis -- Adult Activity Restrictions/Additional Instructions: Please return to emergency department for admission after your court date You will likely need admission IV antibiotics and probably a blood transfusion Take medication as directed: [facility] Cefdinir 300 mg twice a day for 10 days Bactrim 1 tablet twice a day for 10 days Prescriptions: New sulfamethoxazole-trimethoprim [Bactrim DS] 800-160 mg tablet 1 tab PO BID 10 Days Qty: 20 0RF cefdinir 300 mg capsule 300 mg PO Q12H Qty: 20 0RF No Action Abilify Maintena 400 mg suspension,extended rel syring 400 mg IM QMONTH sulfamethoxazole-trimethoprim 800-160 mg tablet 1 tab PO Q12H Qty: 14 0RF Referrals: Chantale Martin MD [Primary Care Provider] - Stand Alone Forms: Patient Portal/API, Against Medical Advice, Patient Portal/API/Survey
[2024-06-20] MEDS: cefTRIAXone 1,000 MG in SODIUM CHLORIDE 0.9% 100 ML 200 MG IV (02:59)
[2024-06-20 03:31] VITALS: BP 120/62
[2024-06-20] MEDS: VANCOMYCIN 2,000 MG/400 ML PIGGYBACK 200 MG IV (03:35)
[2024-06-20 04:45] LABS: UR Morphine/Opiate cutoff 300 Negative (Negative); Ur Creatinine Normal (Normal); Ur Specific Gravity Normal (Normal); Urine Cocaine Negative (Negative); Urine Tetrahydrocannabinol Negative (Negative); Urine pH Normal (Normal)
[2024-06-20 04:46] LABS: Urine Amphetamines Positive (Negative); Urine Barbiturates Negative (Negative); Urine Benzodiazepines Negative (Negative); Urine MDMA Positive (Negative); Urine Methadone Negative (Negative); Urine Methamphetamines Positive (Negative); Urine Oxycodone Negative (Negative); Urine Phencyclidine Negative (Negative); Urine Tricyclic Antidepressant Negative (Negative)
[2024-06-20 05:22] LABS: Appearance Urine UA Clear; Color Urine UA Yellow; Glucose Urine UA NEGATIVE (Negative); Ketones Urine UA NEGATIVE (NEGATIVE); Nitrite Urine UA NEGATIVE (Negative); Occult Blood Urine UA NEGATIVE (Negative); Protein Urine UA Negative (Negative); Specific Gravity Urine UA >=1.030 (1.000-1.035); pH Urine UA 5.5 (4.5-8.0)
[2024-06-20 05:23] LABS: Bilirubin Urine UA Negative (NEGATIVE); Culture Indicated Urine Cult Not Indicated; Leukocyte Esterase Urine UA NEGATIVE (NEGATIVE); Mucus Urine 1+ (Negative); Squamous Epithelial Cell Urine 0-1 /HPF (0-5/HPF); Urine Volume 10mL (spun)
--- NOTE | 2024-06-20 05:51 | PC.NURSE ---
Patient declined blood transfusion at this time. He has other obligations this morning and states he will come back when he has fulfilled those obligations. Transfusion not given
[2024-06-20 06:04] VITALS: PULSE 72; RESP 16
[2024-06-20 13:42] LABS: RBC Urine None Seen (0-5/HPF); WBC Urine None Seen (0-5/HPF)
[2024-06-20 13:47] LABS: Bacteria Urine None Seen
[2024-06-21 06:10] LABS: Acinetobacter calcoa-baumannii Not Detected (Not Detect); Bacteroides fragilis Not Detected (Not Detect); Candida albicans Not Detected (Not Detect); Candida auris Not Detected (Not Detect); Candida glabrata Not Detected (Not Detect); Candida krusei Not Detected (Not Detect); Candida parapsilosis Not Detected (Not Detect); Candida tropicalis Not Detected (Not Detect); Cryptococcus neoformans/gatti Not Detected (Not Detect); Enterobacter cloacae complex Not Detected (Not Detect); Enterobacterales Not Detected (Not Detect); Enterococcus faecalis Not Detected (Not Detect); Enterococcus faecium Not Detected (Not Detect); Haemophilus influenzae Not Detected (Not Detect); Klebsiella aerogenes Not Detected (Not Detect); Listeria monocytogenes Not Detected (Not Detect); Neisseria meningitidis Not Detected (Not Detect); Proteus species Not Detected (Not Detect); Pseudomonas aeruginosa Not Detected (Not Detect); Salmonella species Not Detected (Not Detect); Serratia marcescens Not Detected (Not Detect); Staphylococcus epidermidis Not Detected (Not Detect); Staphylococcus lugdunensis Not Detected (Not Detect); Staphylococcus species Not Detected (Not Detect); Stenotrophomonas maltophilia Not Detected (Not Detect); Streptococcus agalactiae (Gr B Not Detected (Not Detect); Streptococcus pneumonia Not Detected (Not Detect); Streptococcus pyogenes (Gr A) Not Detected (Not Detect); Streptococcus species Not Detected (Not Detect)
== END 2024-06-20 06:08 | disposition left against medical advice (07) ==
PROVIDERS: Emergency Provider Emergency Medicine; PCP Family Medicine
DX: L03.116 Cellulitis of left lower limb (principal)
CPT/HCPCS: 36415; 80053; 80305; 81001; 83605; 85025; 86850; 86900; 86901; 87040; 87077; 87154; 96365; 96366; 96367; 99284; J0696

== ENCOUNTER 2024-06-20 23:29 | Observation (INO) | payer MEDICARE, MEDICAID, SELFPAY ==
[2023-04-27 22:17] VITALS: BMI 32.1
[2024-06-20 23:39] VITALS: BP 148/69; PULSE 109; RESP 16; TEMP 37.4; O2SAT 95; BMI 34.2
--- NOTE | 2024-06-20 23:50 | ED.RECABL ---
HPI - Recheck/Abnormal Lab/Rx General Chief Complaint: Recheck/Abnormal Lab/Rx Stated Complaint: Blood transfusion Time Seen by Provider: 06/20/24 23:34 Source: patient Mode of arrival: Ambulatory History of Present Illness HPI narrative: 33-year-old male with history of remote IV drug use, pancytopenia, recurrent left leg cellulitis for which he has been admitted in the past, was here last night with hemoglobin 6.6 and had IV vancomycin/ceftriaxone dose for cellulitis, had refused admission at that time 2:00 a.m. yesterday citing need to make an assigned court date, and was agreeable to returning which he has done so now. No black stools or red stools. Repeat labs pending. Patient is willing to be admitted now for cellulitis and further treatment of his anemia if needed. Related Data Home Medications Medication Instructions Recorded Confirmed aripiprazole 400 mg suspension, 400 mg IM QMONTH 06/11/19 04/28/23 extended rel.intramuscular syringe (Jeniffer Cisneros) Previous Rx's Medication Instructions Recorded sulfamethoxazole 800 1 tab PO Q12H #14 tabs 12/11/23 mg-trimethoprim 160 mg tablet cefdinir 300 mg capsule 300 mg PO Q12H #20 caps 06/20/24 sulfamethoxazole 800 1 tab PO BID 10 days #20 tabs 06/20/24 mg-trimethoprim 160 mg tablet (Bactrim DS) Allergies Allergy/AdvReac Type Severity Reaction Status Date / Time No Known Drug Allergies Allergy Verified 08/04/23 20:18 Patient History Medical History (Updated 06/21/24 @ 02:31 by Salvatore Enriquez MD) Schizophrenia Polysubstance use disorder Endocarditis Social History household members: family Smoking Status: Current some day smoker alcohol intake: former Smoking Status: Current some day smoker tobacco type: cigarettes and vaping alcohol intake frequency: 0-2 drinks per day Exam Narrative Exam Narrative: GENERAL: Well-developed patient, in mild distress. HEAD: Atraumatic. Normocephalic. EYES: Pupils equal round and reactive. Extraocular motions intact. No scleral icterus. No injection or drainage. ENT: Nose without bleeding, purulent drainage. Throat without erythema, tonsillar hypertrophy or exudate. Airway patent. NECK: Trachea midline. Non tender CARDIOVASCULAR: Regular rate and rhythm without murmurs, gallops, or rubs. RESPIRATORY: Clear to auscultation. Breath sounds equal bilaterally. No wheezes, rales, or rhonchi. GASTROINTESTINAL: Abdomen soft, non-tender, nondistended. EXTREMITIES: Left lower extremity with diffuse circumferential redness thigh knee leg to ankle area, not particularly swollen and foot or between toes, no areas of weeping or open sores or ulceration. No abrasions or hematoma or gross deformity noted. Good cap refill toes, palpable DP pulse. BACK: Nontender without deformity or crepitance. No flank tenderness. NEURO: AOx3. Motor functions grossly nonfocal SKIN: No rash or erythema of visible areas Initial Vital Signs Initial Vital Signs: Vital Signs Temperature 99.3 F 06/20/24 23:39 Pulse Rate 109 H 06/20/24 23:39 Respiratory Rate 16 06/20/24 23:39 Blood Pressure 148/69 H 06/20/24 23:39 Pulse Oximetry 95 06/20/24 23:39 Oxygen Delivery Method Room Air 06/20/24 23:39 Course Orders Ordered: ED Orders 06/20/24 23:57 CBC Auto Diff [Complete Blood Count AUTO DIFF] Stat CMP [Comprehensive Metabolic Panel] Stat Prothrombin Time INR Stat Type and Screen Stat 06/21/24 00:10 Lactate (Lactic Acid) Stat 06/21/24 00:12 XR femur LT min 2V Stat XR tibia fibula LT 2V Stat 06/21/24 00:14 US periph venous low extrem lt Stat 06/21/24 00:38 Packed Cells Stat Acetaminophen (Acetaminophen 325 Mg Tablet) 650 mg PO Q6H PRN PRN Reason: Fever/Mild Pain (1-3) Enoxaparin Sodium (Enoxaparin 40 Mg/0.4 Ml Syringe) 40 mg SUBCUT DAILY KIARA Naloxone HCl (Naloxone 0.4 Mg/Ml Vial) 0.2 mg IV Q2MIN PRN PRN Reason: Opiate Reversal Ondansetron HCl (Ondansetron 4 Mg Odt) 4 mg PO Q8HR PRN PRN Reason: Nausea And Vomiting Oxycodone HCl (Oxycodone Ir 5 Mg Tablet) 5 mg PO Q3H PRN PRN Reason: Pain, Moderate (4-6) Discontinued Medications Ceftriaxone Sodium 1,000 mg/ (Sodium Chloride) 100 mls @ 200 mls/hr IV NOW ONE Stop: 06/21/24 00:10 Last Admin: 06/21/24 00:35 Dose: 200 mls/hr Documented By: Vancomycin HCl 2,000 mg/ (Sodium Chloride) 500 mls @ 250 mls/hr IV NOW ONE Stop: 06/21/24 00:10 Last Admin: 06/21/24 00:24 Dose: Not Given Documented By: POTASSIUM CHLORIDE IN WATER (Potassium Cl 10 Meq/100 Ml Jasmine) 10 meq in 100 mls @ 100 mls/hr IV Q1H KIARA Stop: 06/21/24 02:59 Last Infusion: 06/21/24 03:02 Dose: Infused Documented By: Admin: 06/21/24 02:01 Dose: 100 mls/hr Documented By: Infusion: 06/21/24 02:00 Dose: Infused Documented By: Admin: 06/21/24 00:50 Dose: 100 mls/hr Documented By: Potassium Chloride (Potassium Chloride 20 Meq/15 Ml Udc) 20 meq PO NOW ONE Stop: 06/21/24 00:47 Last Admin: 06/21/24 00:52 Dose: 20 meq Documented By: Vital Signs Vital signs: Vital Signs - 8 hr 06/20/24 23:39 06/21/24 00:00 06/21/24 00:00 Temperature 99.3 F Pulse Rate 109 H 96 H Respiratory Rate 16 Blood Pressure 148/69 H 126/58 L Blood Pressure [Left Arm] Pulse Oximetry 95 95 Oxygen Delivery Method Room Air 06/21/24 00:38 06/21/24 00:44 06/21/24 00:44 Temperature Pulse Rate 99 H 93 H Respiratory Rate Blood Pressure 126/58 L Blood Pressure [Left Arm] Pulse Oximetry 97 95 Oxygen Delivery Method 06/21/24 01:00 06/21/24 01:30 06/21/24 01:53 Temperature 98.6 F Pulse Rate 98 H 93 H 90 Respiratory Rate 18 Blood Pressure 114/59 L Blood Pressure [Left Arm] Pulse Oximetry 94 95 93 Oxygen Delivery Method Room Air 06/21/24 01:53 06/21/24 01:53 06/21/24 01:54 Temperature 98.6 F Pulse Rate 91 H 90 Respiratory Rate 16 Blood Pressure 114/59 L 144/59 H Blood Pressure [Left Arm] Pulse Oximetry 94 Oxygen Delivery Method 06/21/24 02:00 06/21/24 02:00 06/21/24 02:04 Temperature 98.4 F Pulse Rate 89 92 H Respiratory Rate 16 Blood Pressure 116/59 L 113/56 L Blood Pressure [Left Arm] Pulse Oximetry 94 Oxygen Delivery Method 06/21/24 02:05 06/21/24 02:05 06/21/24 02:23 Temperature Pulse Rate 89 89 Respiratory Rate 16 Blood Pressure 113/56 L Blood Pressure [Left Arm] 113/56 L Pulse Oximetry 93 94 Oxygen Delivery Method Room Air 06/21/24 02:30 06/21/24 02:30 Temperature 98.2 F Pulse Rate 89 Respiratory Rate Blood Pressure 117/58 L Blood Pressure [Left Arm] Pulse Oximetry 93 Oxygen Delivery Method MDM - Recheck/Abnormal Lab/Rx Lab Data Attestation: I reviewed the patient's lab results. Lab results narrative: White blood cell count 2400, hemoglobin 6.5, platelets 61,000. Sodium 138 with glucose 114. BUN 14 with creatinine 0.66. Serum CO2 29. Potassium 3.0 low. Chloride 104. Liver functions normal. Lactate 1.6 normal. Albumin 2.9 low noted. Blood type A positive, crossmatched. 06/20/24 23:57 06/20/24 23:57 Labs: Lab Results 06/20/24 Range/Units 23:57 WBC 2.4 L (4.5-11.0) X10^3/uL RBC 2.18 L (4.5-5.9) X10^6/uL Hgb 6.5 L* (13.5-17.5) g/dL Hct 19.1 L* (41-53) % MCV 87.7 (80-100) fL MCH 29.9 (26-34) PG MCHC 34.1 (30-36) % RDW 15.8 H (11.6-14.8) % Plt Count 61 L (150-400) X10^3/uL Neut % (Auto) 59.6 (50-75) % Lymph % (Auto) 26.2 (25-40) % [place] % (Auto) 13.4 (3-14) % Eos % (Auto) 0.1 L (2-4) % Baso % (Auto) 0.7 (0-2) % Neut # (Auto) 1400 L (9067-1383) /uL Lymph # (Auto) 600 L (9366-4710) /uL [place] # (Auto) 300 (0-900) /uL Eos # (Auto) 0 (0-450) /uL Baso # (Auto) 0 (0-100) /uL PT 14.6 H (9.4-12.5) SECONDS INR 1.3 (0.9-1.3) Sodium 138 (137-145) mmol/L Potassium 3.0 L (3.4-5.1) mmol/L Chloride 104 (98-107) mmol/L Carbon Dioxide 29 (22-32) mmol/L BUN 14 (9-20) mg/dL Creatinine 0.66 (0.66-1.25) mg/dL Estimated GFR > 60 (>60) mL/min BUN/Creatinine Ratio 21.2 (6-22) Glucose 114 H (70-100) mg/dL Lactate 1.6 (0.7-2.1) mmol/L Calcium 8.1 L (8.4-10.2) mg/dL Total Bilirubin 0.9 (0.2-1.3) mg/dL AST 34 (17-59) IU/L ALT 20 (<50) IU/L Alkaline Phosphatase 123 (38-126) U/L Total Protein 6.0 L (6.3-8.2) g/dL Albumin 2.9 L (3.5-5.0) g/dL Globulin 3.1 (1.7-4.1) g/dL Albumin/Globulin Ratio 0.9 L (1.0-2.8) Blood Type A Positive Antibody Screen Negative Crossmatch See Detail Imaging Data Extremity x-ray #1: Radiologist's Impression: [address] [address] XRay Report Signed Patient: Kenyon Byers Jr MR#: [id number] : 1990 Acct:[id number] Age/Sex: 33 / M Date of Service: 06/21/24 Loc: ED Accession Number: [id number] Procedure: XR tibia fibula LT 2V Ordering Provider: Salvatore Enriquez MD PROCEDURE: XR TIBIA FIBULA LT 2V INDICATIONS: swelling, redness, eval for oesto changes TECHNIQUE: 2 views of the tibia and fibula were acquired. COMPARISON: None. FINDINGS: Bones: No fractures or dislocations. No bony erosive changes. No suspicious bony lesions. Soft tissues: Soft tissue swelling throughout left lower leg. No subcutaneous emphysema. No suspicious soft tissue calcifications or masses. IMPRESSION: Soft tissue swelling throughout left lower leg. No fracture or dislocation. No radiographic evidence of osteomyelitis. Dictated by: Prashant Mccoy M.D. on 06/21/2024 at 0:53 Approved by: Prashant Mccoy M.D. on 06/21/2024 at 0:53 Ultrasound venous Doppler left lower extremity: Radiologist's Impression: [address] [address] Ultrasound Report Signed Patient: Kenyon Byers Jr MR#: [id number] : 1990 Acct:[id number] Age/Sex: 33 / M Date of Service: 06/21/24 Loc: ED Accession Number: [id number] Procedure: perip venous low extrem lt Ordering Provider: Salvatore Enriquez MD PROCEDURE: US PERIP VENOUS LOW EXTREM LT INDICATIONS: red/swelling TECHNIQUE: Real-time imaging, as well as color and pulse Doppler interrogation, were performed of the lower extremity deep veins from the inguinal ligament to the popliteal fossa, with documentation of the visualized calf veins. COMPARISON: None. FINDINGS: The common femoral, femoral, popliteal, and the visualized calf veins are normally compressible, and free of intraluminal thrombus. Color and pulse Doppler demonstrate normal phasic intraluminal flow. There is normal augmentation response to distal compression maneuver. IMPRESSION: No evidence of DVT in visualized left lower extremity veins. Significant soft tissue edema and swelling in left calf region. Dictated by: Prashant Mccoy M.D. on 06/21/2024 at 1:35 Approved by: Prashant Mccoy M.D. on 06/21/2024 at 1:35 [facility] Narrative Medical decision making narrative: 33-year-old male with history of remote IV DU had refused admission last night for transfusion for known pancytopenia and recurrent anemia, hemoglobin 6.6 yesterday, also found to have left-sided lower extremity cellulitis that is recurrent, given IV vancomycin/ceftriaxone, refused admission due to court date today. Returns for admission and possible transfusion. Labs sent. Hemoglobin again confirmed low, hemoglobin 6.5, platelets and white cells also low, history of pancytopenia noted. 1 unit transfusion packed red cell ordered, a positive, cross matched. IV vancomycin/ceftriaxone, proximally 24 hours from prior dosing, pharmacy consult for vancomycin order. Anticipate admission. X-ray left femur and tib-fib. Ultrasound venous Doppler left lower extremity. Potassium level 3.0 noted, IV and oral potassium repletion initiated. 0110, venous Doppler left lower extremity negative for DVT, per after hours sono tech verbal report. X-ray reports pending. X-rays left tib-fib without obvious osteo changes. See radiology report.. X-rays left femur without obvious osteo changes. See radiology report. 0215, packed red cell unit type and cross to be infused, admit primarily for large area left lower extremity cellulitis, IV antibiotics initiated, we will contact hospitalist. Patient willing to stay and seems motivated to stay. 0230, case discussed with hospitalist Dr. Story who accepts patient for admission to observation Critical Care Time Critical Care Time Critical Care Time: Yes Total Critical Care Time: 35 Attestation: The high probability of a clinically significant, sudden or life threatening deterioration of the [hematologic, musculoskeletal, dermatologic] system(s) required my full and direct attention, intervention and personal management. The aggregate critical care time was [35] minutes. This time is in addition to time spent performing reported procedures but includes the following: [x] Data Review and interpretation [x] Patient assessment and monitoring of vital signs [x] Documentation [x] Medication orders and management Discharge Plan Departure Patient Disposition: Admitted as Observation Clinical Impression: Cellulitis of left leg, History of pancytopenia, Hypokalemia, Anemia Admit Date/Time: 06/21/24 02:32 Admit Provider: Tate Brock
[2024-06-21] VITALS (19 sets, daily range): BP systolic 111–144; BP diastolic 51–75; PULSE 84–99; RESP 15–20; TEMP 36.7–37.1; O2SAT 93–98; BMI 34.2
--- NOTE | 2024-06-21 00:12 | DI.RAD.S_ITS ---
PROCEDURE: XR FEMUR LT MIN 2V INDICATIONS: redness, eval for osteo TECHNIQUE: 3 views of the femur were acquired. COMPARISON: None. FINDINGS: Bones: No fractures or dislocations. No bony erosive changes. No evidence of avascular necrosis of femoral head. No suspicious bony lesions. Soft tissues: No suspicious soft tissue calcifications or masses. IMPRESSION: No acute left femoral fracture or dislocation. No radiographic evidence of osteomyelitis. No gross soft tissue abnormalities. Dictated by: Prashant Mccoy M.D. on 06/21/2024 at 0:45 Approved by: Prashant Mccoy M.D. on 06/21/2024 at 0:53
--- NOTE | 2024-06-21 00:12 | DI.RAD.S_ITS ---
PROCEDURE: XR TIBIA FIBULA LT 2V INDICATIONS: swelling, redness, eval for oesto changes TECHNIQUE: 2 views of the tibia and fibula were acquired. COMPARISON: None. FINDINGS: Bones: No fractures or dislocations. No bony erosive changes. No suspicious bony lesions. Soft tissues: Soft tissue swelling throughout left lower leg. No subcutaneous emphysema. No suspicious soft tissue calcifications or masses. IMPRESSION: Soft tissue swelling throughout left lower leg. No fracture or dislocation. No radiographic evidence of osteomyelitis. Dictated by: Prashant Mccoy M.D. on 06/21/2024 at 0:53 Approved by: Prashant Mccoy M.D. on 06/21/2024 at 0:53
--- NOTE | 2024-06-21 00:14 | DI.US.S_ITS ---
PROCEDURE: US PERIPH VENOUS LOW EXTREM LT INDICATIONS: red/swelling TECHNIQUE: Real-time imaging, as well as color and pulse Doppler interrogation, were performed of the lower extremity deep veins from the inguinal ligament to the popliteal fossa, with documentation of the visualized calf veins. COMPARISON: None. FINDINGS: The common femoral, femoral, popliteal, and the visualized calf veins are normally compressible, and free of intraluminal thrombus. Color and pulse Doppler demonstrate normal phasic intraluminal flow. There is normal augmentation response to distal compression maneuver. IMPRESSION: No evidence of DVT in visualized left lower extremity veins. Significant soft tissue edema and swelling in left calf region. Dictated by: Prashant Mccoy M.D. on 06/21/2024 at 1:35 Approved by: Prashant Mccoy M.D. on 06/21/2024 at 1:35
[2024-06-21 00:16] LABS: INR 1.3 (0.9-1.3); Prothrombin Time 14.6 SECONDS (9.4-12.5)
[2024-06-21 00:18] LABS: Add Manual Diff / Slide Review NO; Basophils Absolute Auto 0 /uL (0-100); Basophils Percent Auto 0.7 % (0-2); Eosinophils Absolute Auto 0 /uL (0-450); Eosinophils Percent Auto 0.1 % (2-4); Lymphocytes Absolute Auto 600 /uL (1100-4500); Lymphocytes Percent Auto 26.2 % (25-40); Mean Corpuscular HGB Conc 34.1 % (30-36); Mean Corpuscular Hemoglobin 29.9 PG (26-34); Mean Corpuscular Volume 87.7 fL (80-100); Monocytes Absolute Auto 300 /uL (0-900); Monocytes Percent Auto 13.4 % (3-14); Neutrophils Absolute Auto 1400 /uL (1500-7000); Neutrophils Percent Auto 59.6 % (50-75); Platelet Count 61 X10^3/uL (150-400); Red Blood Cell Count 2.18 X10^6/uL (4.5-5.9); Red Cell Distribution Width 15.8 % (11.6-14.8); White Blood Cell Count 2.4 X10^3/uL (4.5-11.0)
[2024-06-21 00:20] LABS: Hematocrit 19.1 % (41-53); Hemoglobin 6.5 g/dL (13.5-17.5)
[2024-06-21 00:22] LABS: Alanine Aminotransferase 20 IU/L (<50); Albumin 2.9 g/dL (3.5-5.0); Albumin Globulin Ratio 0.9 (1.0-2.8); Alkaline Phosphatase 123 U/L (38-126); Aspartate Aminotransferase 34 IU/L (17-59); BUN Creatinine Ratio 21.2 (6-22); Bilirubin Total 0.9 mg/dL (0.2-1.3); Blood Urea Nitrogen 14 mg/dL (9-20); Calcium 8.1 mg/dL (8.4-10.2); Carbon Dioxide 29 mmol/L (22-32); Chloride 104 mmol/L (98-107); Estimated Glomerular Filt Rate > 60 mL/min (>60); Globulin 3.1 g/dL (1.7-4.1); Glucose 114 mg/dL (70-100); HEMOLYSIS < 15 (0-50); Sodium 138 mmol/L (137-145)
[2024-06-21 00:25] LABS: Lactate (Lactic Acid) 1.6 mmol/L (0.7-2.1)
[2024-06-21] MEDS: cefTRIAXone 1,000 MG in SODIUM CHLORIDE 0.9% 100 ML 200 MG IV (00:35)
[2024-06-21] MEDS: POTASSIUM CHLORIDE IN WATER 10 MEQ/100 ML PIGGYBACK 100 MEQ IV ×2 (00:50→02:01)
[2024-06-21] MEDS: POTASSIUM CHLORIDE 20 MEQ/15 ML UDC PO (00:52)
--- NOTE | 2024-06-21 04:32 | PM.HP.1 ---
History of Present Illness History of Present Illness Date Patient Seen: 06/21/24 Time Patient Seen: 03:00 Chief complaint: LLE Cellulitis, Pancytopenia Narrative: 33 y/o with PMH of polysubstance abuse, KIARA, recurrent LLE cellulitis and pancytopenia, seen in ED 24 hours ago with LLE cellulitis and worsening anemia. He was given antibiotics and was supposed to get 1 unit of PRBCs but he left hospital. Came back, a day later, once he tended to some legal matters and had a second dose of Rocephin and vancomycin. Placed in observation for IV abx, PRBC. [facility] Medical History (Updated 06/21/24 @ 04:49 by Tate Story MD) Schizophrenia Polysubstance use disorder Endocarditis Social History household members: family Smoking Status: Current some day smoker alcohol intake: former Meds Home Medications and Allergies Home Medications Medication Instructions Recorded Confirmed Type aripiprazole 400 mg suspension, 400 mg IM QMONTH 06/11/19 04/28/23 History extended rel.intramuscular syringe (Jeniffer Maingentrya) sulfamethoxazole 800 1 tab PO Q12H #14 tabs 12/11/23 Rx mg-trimethoprim 160 mg tablet cefdinir 300 mg capsule 300 mg PO Q12H #20 caps 06/20/24 Rx sulfamethoxazole 800 1 tab PO BID 10 days #20 tabs 06/20/24 Rx mg-trimethoprim 160 mg tablet (Bactrim DS) Allergies Allergy/AdvReac Type Severity Reaction Status Date / Time No Known Drug Allergies Allergy Verified 08/04/23 20:18 Review of Systems Constitutional Comments: generalized weakness, feels weak, fatyigued Cardiovascular Comments: w/o chest pain or palpitations Respiratory Comments: short of breath with activity Gastrointestinal Comments: w/o melena or bloody stool Genitourinary Comments: w/o hematuria Musculoskeletal Comments: swollen, tender left lower leg Psychiatric Comments: w/o hallucinations Exam Vital Signs (past 8 hours): - 06/20/24 23:39 06/21/24 00:00 06/21/24 00:00 Temperature 99.3 F Pulse Rate 109 H 96 H Respiratory Rate 16 Blood Pressure 148/69 H 126/58 L Blood Pressure [Left Arm] Pulse Oximetry 95 95 Oxygen Delivery Method Room Air 06/21/24 00:38 06/21/24 00:44 06/21/24 00:44 Temperature Pulse Rate 99 H 93 H Respiratory Rate Blood Pressure 126/58 L Blood Pressure [Left Arm] Pulse Oximetry 97 95 Oxygen Delivery Method 06/21/24 01:00 06/21/24 01:30 06/21/24 01:53 Temperature 98.6 F Pulse Rate 98 H 93 H 90 Respiratory Rate 18 Blood Pressure 114/59 L Blood Pressure [Left Arm] Pulse Oximetry 94 95 93 Oxygen Delivery Method Room Air 06/21/24 01:53 06/21/24 01:53 06/21/24 01:54 Temperature 98.6 F Pulse Rate 91 H 90 Respiratory Rate 16 Blood Pressure 114/59 L 144/59 H Blood Pressure [Left Arm] Pulse Oximetry 94 Oxygen Delivery Method 06/21/24 02:00 06/21/24 02:00 06/21/24 02:04 Temperature 98.4 F Pulse Rate 89 92 H Respiratory Rate 16 Blood Pressure 116/59 L 113/56 L Blood Pressure [Left Arm] Pulse Oximetry 94 Oxygen Delivery Method 06/21/24 02:05 06/21/24 02:05 06/21/24 02:23 Temperature Pulse Rate 89 89 Respiratory Rate 16 Blood Pressure 113/56 L Blood Pressure [Left Arm] 113/56 L Pulse Oximetry 93 94 Oxygen Delivery Method Room Air 06/21/24 02:30 06/21/24 02:30 06/21/24 03:00 Temperature 98.2 F Pulse Rate 89 90 Respiratory Rate Blood Pressure 117/58 L Blood Pressure [Left Arm] Pulse Oximetry 93 96 Oxygen Delivery Method 06/21/24 03:00 Temperature Pulse Rate Respiratory Rate Blood Pressure 111/56 L Blood Pressure [Left Arm] Pulse Oximetry Oxygen Delivery Method Oxygen Delivery Method Room Air Const Other: in no distress HENMT Other: normocephalic Resp Other: CTA Cardio Other: RRR, INO at midsternum GI Other: w/o distension Skin Other: w/o jaundice Neuro Other: w/o deficits Extrem Other: 2-3 + edema both legs, upper and lower Psych Other: normal mood and affect, not delusional, lucid Objective Imaging Venous US: Radiologist's impression: No evidence of DVT in visualized left lower extremity veins. Significant soft tissue edema and swelling in left calf region. Labs 06/20/24 23:57 06/20/24 23:57 Labs: Laboratory Results - last 24 hr 06/20/24 23:57 WBC 2.4 L RBC 2.18 L Hgb 6.5 L* Hct 19.1 L* MCV 87.7 MCH 29.9 MCHC 34.1 RDW 15.8 H Plt Count 61 L Neut % (Auto) 59.6 Lymph % (Auto) 26.2 [place] % (Auto) 13.4 Eos % (Auto) 0.1 L Baso % (Auto) 0.7 Neut # (Auto) 1400 L Lymph # (Auto) 600 L [place] # (Auto) 300 Eos # (Auto) 0 Baso # (Auto) 0 PT 14.6 H INR 1.3 Sodium 138 Potassium 3.0 L Chloride 104 Carbon Dioxide 29 BUN 14 Creatinine 0.66 Estimated GFR > 60 BUN/Creatinine Ratio 21.2 Glucose 114 H Lactate 1.6 Calcium 8.1 L Total Bilirubin 0.9 AST 34 ALT 20 Alkaline Phosphatase 123 Total Protein 6.0 L Albumin 2.9 L Globulin 3.1 Albumin/Globulin Ratio 0.9 L Blood Type A Positive Antibody Screen Negative Crossmatch See Detail Assessment & Plan Assessment and plan (1) Cellulitis of left leg: Status: Acute (2) Pancytopenia: Status: Acute (3) Schizophrenia: Qualifiers: Schizophrenia type: paranoid schizophrenia Qualified Code(s): F20.0 - Paranoid schizophrenia Status: Acute (4) Polysubstance use disorder: Status: Acute Assessment & Plan narrative: LLE Cellulitis - recurrent, on average q 6 months over the past few years - Rocephin, vancomycin - advised to keep leg elevated - 1 x Lasix in AM for significant swelling from anasarca - US negative for DVT and X-ray of fibula and tibia negative for osteomyelitis Pancytopenia - could be related Abilify as the only medication he is on - IM depot q month - he relates it to liver cirrhosis but apart from hypoalbuminemia and anasarca, LFTs WNR - never had bone marrow examined - advised to discuss alternative antipsychotic with psychiatrist Polysubstance abuse - alcohol and different drugs - not lately or on this admission Paranoid KIARA - depot Abilify - referral to his psychiatrist for alternative as it can cause bone marrow depression Hypokalemia - supplemented - monitored DVT prophylaxis - Lovenox Time-Based Coding :: [TOTAL MINUTES] spent with patient and on the chart (including review of chart, obtaining history, exam, reviewing outside data, placing orders, documenting exam and treatment plan, and counseling patient) on [DATE].
[2024-06-21 06:45] LABS: Mean Corpuscular HGB Conc 33.5 % (30-36); Mean Corpuscular Hemoglobin 29.6 PG (26-34); Mean Corpuscular Volume 88.5 fL (80-100); Platelet Count 55 X10^3/uL (150-400); Red Blood Cell Count 2.25 X10^6/uL (4.5-5.9); Red Cell Distribution Width 15.5 % (11.6-14.8)
[2024-06-21 06:49] LABS: Hemoglobin 6.7 g/dL (13.5-17.5); White Blood Cell Count 1.9 X10^3/uL (4.5-11.0)
[2024-06-21 06:50] LABS: Add Manual Diff / Slide Review YES; Hematocrit 19.9 % (41-53)
[2024-06-21 07:00] LABS: Magnesium 1.9 mg/dL (1.6-2.3)
[2024-06-21 07:01] LABS: BUN Creatinine Ratio 19.7 (6-22); Blood Urea Nitrogen 12 mg/dL (9-20); Calcium 7.5 mg/dL (8.4-10.2); Carbon Dioxide 25 mmol/L (22-32); Chloride 106 mmol/L (98-107); Estimated Glomerular Filt Rate > 60 mL/min (>60); Glucose 124 mg/dL (70-100); HEMOLYSIS < 15 (0-50); Potassium 3.2 mmol/L (3.4-5.1); Sodium 136 mmol/L (137-145)
[2024-06-21 07:10] LABS: NT-proBNP (BNP-Adult 18+) 129 pg/mL (<125)
[2024-06-21 07:27] LABS: Anisocytosis 1+; Neutrophils Absolute Manual 1045 /uL (3000-5900); Total Cells Counted 100
--- NOTE | 2024-06-21 07:39 | P.HP_ITS ---
History of Present Illness History of Present Illness Date Patient Seen: 06/21/24 Chief complaint: LLE Cellulitis, Pancytopenia Narrative: From night doctor: 33 y/o with PMH of polysubstance abuse, KIARA, recurrent LLE cellulitis and pancytopenia, seen in ED 24 hours ago with LLE cellulitis and worsening anemia. He was given antibiotics and was supposed to get 1 unit of PRBCs but he left hospital. Came back, a day later, once he tended to some legal matters and had a second dose of Rocephin and vancomycin. Placed in observation for IV abx, PRBC. S: He was doing well. His left leg tends to get infected about every 6 months. He denies recent trauma. He has chronic pancytopenia and was treated for hepatitis-C. He also has significant edema of the left leg greater than the right, as well as evidence of probable abdomen distention with ascites. He was unclear the status of his liver. He was comfortable, he denies any withdrawal symptoms or requests for any medications to temporize these symptoms. He also denies fevers, or chills. No evidence clinically of rectal bleeding or history of. He does have a long history of drug use. [facility] Medical History Schizophrenia Polysubstance use disorder Endocarditis Social History household members: family Smoking Status: Current some day smoker alcohol intake: former Meds Home Medications and Allergies Home Medications Medication Instructions Recorded Confirmed Type aripiprazole 400 mg suspension, 400 mg IM QMONTH 06/11/19 06/21/24 History extended rel.intramuscular syringe (Jeniffer Martineza) Allergies Allergy/AdvReac Type Severity Reaction Status Date / Time No Known Drug Allergies Allergy Verified 08/04/23 20:18 Review of Systems Review of Systems Narrative: All else reviewed and otherwise unremarkable except as noted in the history and physical. Exam Vital Signs (past 8 hours): - 06/21/24 00:00 06/21/24 00:00 06/21/24 00:38 Temperature Pulse Rate 96 H 99 H Respiratory Rate Blood Pressure 126/58 L Blood Pressure [Left Arm] Pulse Oximetry 95 97 Oxygen Delivery Method Oxygen Flow Rate 06/21/24 00:44 06/21/24 00:44 06/21/24 01:00 Temperature Pulse Rate 93 H 98 H Respiratory Rate Blood Pressure 126/58 L Blood Pressure [Left Arm] Pulse Oximetry 95 94 Oxygen Delivery Method Oxygen Flow Rate 06/21/24 01:30 06/21/24 01:53 06/21/24 01:53 Temperature 98.6 F Pulse Rate 93 H 90 91 H Respiratory Rate 18 Blood Pressure 114/59 L Blood Pressure [Left Arm] Pulse Oximetry 95 93 94 Oxygen Delivery Method Room Air Oxygen Flow Rate 06/21/24 01:53 06/21/24 01:54 06/21/24 02:00 Temperature 98.6 F Pulse Rate 90 89 Respiratory Rate 16 Blood Pressure 114/59 L 144/59 H Blood Pressure [Left Arm] Pulse Oximetry 94 Oxygen Delivery Method Oxygen Flow Rate 06/21/24 02:00 06/21/24 02:04 06/21/24 02:05 Temperature 98.4 F Pulse Rate 92 H Respiratory Rate 16 Blood Pressure 116/59 L 113/56 L 113/56 L Blood Pressure [Left Arm] Pulse Oximetry Oxygen Delivery Method Oxygen Flow Rate 06/21/24 02:05 06/21/24 02:23 06/21/24 02:30 Temperature Pulse Rate 89 89 89 Respiratory Rate 16 Blood Pressure Blood Pressure [Left Arm] 113/56 L Pulse Oximetry 93 94 93 Oxygen Delivery Method Room Air Oxygen Flow Rate 06/21/24 02:30 06/21/24 03:00 06/21/24 03:00 Temperature 98.2 F Pulse Rate 90 Respiratory Rate Blood Pressure 117/58 L 111/56 L Blood Pressure [Left Arm] Pulse Oximetry 96 Oxygen Delivery Method Oxygen Flow Rate 06/21/24 03:40 06/21/24 04:00 06/21/24 05:05 Temperature 98.2 F 98.1 F Pulse Rate 94 H 95 H Respiratory Rate 18 18 Blood Pressure 136/51 L 112/73 Blood Pressure [Left Arm] Pulse Oximetry 97 Oxygen Delivery Method Room Air Oxygen Flow Rate 0 Oxygen Delivery Method Room Air Oxygen Flow Rate 0 Narrative Exam Narrative: NAD, alert and oriented, fluent speech, calm. Chronically ill in appearance, pale. Normocephalic skull, EOMI, anicteric sclera, symmetric pupils. Oropharynx unremarkable, no droop. Neck supple, midline trachea, no adenopathy. Lungs clear, normal rate and effort. Heart regular, no murmur gallop or rub. Abdomen is soft, distended, nontender. Extremities: The left leg is quite swollen, red, and warm up to the thigh. The perineum is okay. The right leg is pale and less swollen. Skin is free of rash or lesions. Joints are not swollen or deformed. Judgment appears to be normal. Objective Imaging Multiple studies: : Radiologist's impression: Leg US: No evidence of DVT in visualized left lower extremity veins. Significant soft tissue edema and swelling in left calf region. Tib/Fib X-ray: Soft tissue swelling throughout left lower leg. No fracture or dislocation. No radiographic evidence of osteomyelitis. Labs 06/21/24 06:28 06/21/24 06:28 Labs: Laboratory Results - last 24 hr 06/20/24 06/21/24 23:57 06:28 WBC 2.4 L 1.9 L* RBC 2.18 L 2.25 L Hgb 6.5 L* 6.7 L* Hct 19.1 L* 19.9 L* MCV 87.7 88.5 MCH 29.9 29.6 MCHC 34.1 33.5 RDW 15.8 H 15.5 H Plt Count 61 L 55 L Neut % (Auto) 59.6 Not Reportable Lymph % (Auto) 26.2 Not Reportable Runnels % (Auto) 13.4 Not Reportable Eos % (Auto) 0.1 L Not Reportable Baso % (Auto) 0.7 Not Reportable Neut # (Auto) 1400 L Lymph # (Auto) 600 L Not Reportable Runnels # (Auto) 300 Not Reportable Eos # (Auto) 0 Baso # (Auto) 0 Not Reportable Total Counted 100 Seg Neutrophils % 54.0 Band Neutrophils % 1.0 L Lymphocytes % (Manual) 45.0 Neutrophils # (Manual) 1045 L RBC Morphology Not Reportable Anisocytosis 1+ H PT 14.6 H INR 1.3 Sodium 138 136 L Potassium 3.0 L 3.2 L Chloride 104 106 Carbon Dioxide 29 25 BUN 14 12 Creatinine 0.66 0.61 L Estimated GFR > 60 > 60 BUN/Creatinine Ratio 21.2 19.7 Glucose 114 H 124 H Lactate 1.6 Calcium 8.1 L 7.5 L Magnesium 1.9 Total Bilirubin 0.9 AST 34 ALT 20 Alkaline Phosphatase 123 NT-Pro-B Natriuret Pep 129 H Total Protein 6.0 L Albumin 2.9 L Globulin 3.1 Albumin/Globulin Ratio 0.9 L Blood Type A Positive Antibody Screen Negative Crossmatch See Detail Assessment & Plan Assessment & Plan narrative: 1. LLE Cellulitis, present on admission and active. - recurrent, on average q 6 months over the past few years - Rocephin, vancomycin - advised to keep leg elevated - 1 x Lasix in AM for significant swelling from anasarca - US negative for DVT and X-ray of fibula and tibia negative for osteomyelitis 2. Pancytopenia, present on admission and active. - could be related Abilify as the only medication he is on - IM depot q month - he relates it to liver cirrhosis but apart from hypoalbuminemia and anasarca, LFTs WNR - never had bone marrow examined - advised to discuss alternative antipsychotic with psychiatrist 3. Polysubstance abuse, present on admission and active. - alcohol and different drugs - not lately or on this admission 4. Paranoid schizophrenia, , present on admission and active. - depot Abilify - referral to his psychiatrist for alternative as it can cause bone marrow depression 5. Hypokalemia, present on admission and active. - supplemented - monitored 6. History of hepatitis-C, said to have been treated. A question of ascites as well. Present on admission and active. PLAN: -continue antibiotics and follow up blood cultures. -monitor hemoglobin and WBC as well as platelets. -monitor for withdrawal. -complete abdomen exam to assess for and cirrhosis. -echo to assess LV EF. TONG: Unclear. DVT prophylaxis - Lovenox Time-Based Coding :: [TOTAL MINUTES] spent with patient and on the chart (including review of chart, obtaining history, exam, reviewing outside data, placing orders, documenting exam and treatment plan, and counseling patient) on [DATE].
[2024-06-21] MEDS: FUROSEMIDE 40 MG/4 ML VIAL IV (07:46)
[2024-06-21] MEDS: POTASSIUM CHLORIDE 20 MEQ TAB 40 MEQ PO ×2 (07:46→16:05)
[2024-06-21] MEDS: VANCOMYCIN 2,000 MG/400 ML PIGGYBACK 200 MG IV ×2 (07:48→19:46)
--- NOTE | 2024-06-21 11:14 | DI.US.S_ITS ---
PROCEDURE: US ABDOMEN LIMITED INDICATIONS: POLYSUBSTANCE ABUSE. EVALUATE LIVER AND ASCITES TECHNIQUE: Real-time focused scanning was performed of the abdomen, with image documentation. COMPARISON: [facility], US, US ABDOMEN COMPLETE, 12/25/2021, 8:35. [facility], US, US ABDOMEN COMPLETE, 03/25/2023, 7:07. [facility], CT, CT CHEST ABD PEL WO CON, 01/22/2023, 13:34. FINDINGS: The liver is normal in size and demonstrates a cirrhotic, multinodular appearance. No findings of gallstones or sludge are seen. The gallbladder wall is not thickened, measuring 3 mm or less. No specific pericholecystic fluid is seen. The sonographic Chen sign is negative. There is no biliary dilatation, the common bile duct measures 6 mm. The spleen is enlarged, measuring 17 x 16.6 x 5.8 cm, with a calculated volume of 858 cc. No significant pancreatic abnormality is seen on these images. The visualized right kidney is unremarkable, without hydronephrosis. Trace ascites can be seen involving the right upper quadrant and the left upper quadrant. IMPRESSION: Cirrhotic appearing liver. Trace ascites. Splenomegaly. Dictated by: Kieran Garnett M.D. on 06/21/2024 at 16:18 Approved by: Kieran Garnett M.D. on 06/21/2024 at 16:20
--- NOTE | 2024-06-21 12:01 | CM.DANOTE ---
Initial Assessment Note/ BINDER CASER Note Patient is a 33 yo M, PMH includes polysubstance abuse. Presents with LLE cellulitis with history of same. Hx of leaving AMA. PCP Chantale Martin [facility] MCR/SHANNEN Met w/patient, introduced self and role. Psychosocial : Patient currently living in [facility] w/his aunt and her boyfriend. Patient had been living with his grandma who is now living at [facility]. Patient is unemployed and has been on disability benefits related to his dx of Schizophrenia for years. Patient lists his Dad Kenyon Byers (SR) as his primary contact, mom Sabina as another sober trusted contact . Patient plans to return home to his grandma's home via private vehicle when discharged. Current Drug use: Patient reports hx of IVDU, denies current IVDU. Patient admits to current use of meth and fentanyl. Patient denies any other substance use or ETOH. Tox+ for ecstasy. Hx Drug Use: According to [facility] assessment completed a year ago; Patient reports a long standing hx of polysubstance abuse with multiple inpatient and outpatient [facility] treatments. Patient's last inpatient [facility] stay was in [place] 4 yrs ago. Patient has been sober for two years approx 3 years ago when he was consistently attending [facility] for Methadone treatment. MH: Patient denies current suicidal ideation. Patient has hx of detainment. Patient has struggled with mental illness and currently a part of PACT which includes, but is not limited to, counseling 3-4 times weekly, peer support available 08/11. Patient with and administration of IV ambilify shot once per month. Intervention: Visit kept brief. Patient reports he uses drugs out of habit now and is not seeking a high or euphoria anymore. Patient does drugs with friends and family, never alone, according to patient. Patient says that in order for him to be successful he will need to reengage with [facility]. Patient knows what to do to access services at [facility] again. Patient denies current need from this [facility], states appreciation for this visit. Plan: Discharge home w/ resumption of PACT support anticipated. Patient knows how to access [facility] and has support from the PACT team to reconnect with methadone maintenance and wellness services through [facility] when ready. KRYSTINA Ventura Discharge Planning/Care Management CM Discharge Assessment Start: 06/21/24 11:56 Freq: Status: Active Protocol: Document 06/21/24 11:59 OZ (Rec: 06/21/24 12:01 OZ [id number]) Discharge Planning Assessment Assigned [employer] KRYSTINA George DPOA/Assigned Designee Name Kenyon Byers (dad) [phone] Contact Information Sabina Sprague (mom) [phone], and dad (above) Advance Directives? No History Provided By Patient,Medical Record Prior Living Arrangements House Household Members family Type of transporation used prior to Relies on Others admit Independent with ADL's Yes Is patient alert and oriented? Yes Barriers to Discharge No Discharge Plan Home Transportation Arrangement Unknown Referrals Initiated None needed
[2024-06-21 16:46] LABS: Hematocrit 21.3 % (41-53); Hemoglobin 7.1 g/dL (13.5-17.5); Mean Corpuscular HGB Conc 33.1 % (30-36); Mean Corpuscular Hemoglobin 29.3 PG (26-34); Mean Corpuscular Volume 88.6 fL (80-100); Platelet Count 58 X10^3/uL (150-400); Red Blood Cell Count 2.41 X10^6/uL (4.5-5.9); Red Cell Distribution Width 15.6 % (11.6-14.8)
[2024-06-21 16:49] LABS: White Blood Cell Count 1.5 X10^3/uL (4.5-11.0)
[2024-06-21 17:05] LABS: Alanine Aminotransferase 17 IU/L (<50); Albumin 2.6 g/dL (3.5-5.0); Albumin Globulin Ratio 0.9 (1.0-2.8); Alkaline Phosphatase 108 U/L (38-126); Aspartate Aminotransferase 32 IU/L (17-59); BUN Creatinine Ratio 16.9 (6-22); Bilirubin Total 0.9 mg/dL (0.2-1.3); Blood Urea Nitrogen 11 mg/dL (9-20); Calcium 7.6 mg/dL (8.4-10.2); Carbon Dioxide 27 mmol/L (22-32); Chloride 106 mmol/L (98-107); Estimated Glomerular Filt Rate > 60 mL/min (>60); Glucose 125 mg/dL (70-100); HEMOLYSIS < 15 (0-50); Potassium 3.7 mmol/L (3.4-5.1); Sodium 136 mmol/L (137-145); Total Protein 5.6 g/dL (6.3-8.2)
[2024-06-21 18:42] LABS: Hep C Virus Ab w/Reflex Quant REACTIVE s/c (NEGATIVE)
[2024-06-21] MEDS: SODIUM CHLORIDE 0.9% FLUSH 10 ML IV (19:47)
--- NOTE | 2024-06-21 21:49 | PC.NURSE ---
Note-Patient assessed at 1999, A/Ox4, calm an cooperative, denied pain or other discomfort. Vancomycin IV started per schedule. Around 2099,patient informed staff I'm leaving Unable to change patient's mind about staying in hospital. He remained calm, just stated I am uncomfortable and don't want to stay Patient said he has a friend coming to get me now Dr. Story informed. Patient dressed himself, IVs removed by PCT. Patient signed AMA sheet, witnessed by 2 RNs. Patient able to ambulate out of building with all of his belongings.
--- NOTE | 2024-06-26 16:17 | PC.NURSE ---
late entry per RN ceftriaxone dose was completed when they were admitted upstairs
== END 2024-06-21 21:25 | disposition home or self-care (01) ==
LOC: ED 06-21 02:31 → AC 06-21 02:32
PROVIDERS: Hospitalist; Admitting Provider Internal Medicine; Emergency Provider Emergency Medicine; PCP Family Medicine; Referring Provider Emergency Medicine; Visit Provider Internal Medicine
DX: L03.116 Cellulitis of left lower limb (principal); D61.818 Other pancytopenia; E87.6 Hypokalemia; F20.0 Paranoid schizophrenia; F17.210 Nicotine dependence, cigarettes, uncomplicated
CPT/HCPCS: 36415; 36430; 73552; 73590; 76705; 80048; 80053; 83605; 83735; 83880; 85007; 85025; 85027; 85610; 86803; 86850; 86900; 86901; 87522; 93971; 96365; 96366; 96367; 96375; 99285; 99291; G0378; P9016; J0696; J1940